=== PATIENT | male | born 1945 | race Caucasian/White ===

== ENCOUNTER 2018-08-28 08:10 | Inpatient (IN) ==
--- NOTE | 2018-08-28 08:22 | Emergency Department Note ---
Disposition Clinical Impression: NSTEMI (non-ST elevated myocardial infarction), CKD (chronic kidney disease) stage 3, GFR 30-59 ml/min Disposition: Admitted As Inpatient Condition: Fair General Adult HPI - General Stated complaint: CP Time Seen by Provider: 08/28/18 08:18 - Related Data Home Medications Medication Instructions Recorded Confirmed Aspirin [Adult Low Dose Aspirin EC] 81 mg PO DAILY 01/04/16 08/28/18 Metoprolol [Lopressor] 50 mg PO BID 01/04/16 08/28/18 [place]-3/Dha/Epa/Fish Oil [Fish Oil 1,000 mg PO DAILY 01/04/16 08/28/18 Dr 500 mg Softgel] Atorvastatin [Lipitor] 40 mg PO HS 04/01/16 08/28/18 Gemfibrozil [Lopid] 600 mg PO BIDWM 04/01/16 08/28/18 Metformin HCl [Glucophage] 1,000 mg PO DAILY 04/01/16 08/28/18 Fenofibrate Nanocrystallized 160 mg PO DAILY 08/28/18 08/28/18 [Triglide] Pantoprazole Sodium [Protonix] 40 mg PO DAILY 08/28/18 08/28/18 glipiZIDE [Glipizide] 10 mg PO BID 08/28/18 08/28/18 Previous Rx's Medication Instructions Recorded Isosorbide MONOnitrate (24 HR) 30 mg PO DAILY #30 tab.er.24h 01/08/16 [Imdur] Allergies Allergy/AdvReac Type Severity Reaction Status Date / Time No Known Allergies Allergy Verified 10/20/17 13:30 Past Medical History - Past Medical History Medical history: Reports: COPD, coronary artery disease, diabetes, hyperlipidemia, hypertension, myocardial infarction, TIA Surgical history: Reports: cancer surgery, coronary bypass (CABG) Psychiatric history: Reports: no psych history - Social History Smoking Status: Current every day smoker Smokeless Tobacco Status: No Alcohol use: Reports: none Drug use: Reports: none, other Course Vital Signs Temperature 98.5 F 08/28/18 08:21 Pulse Rate 103 08/28/18 08:21 Respiratory Rate 20 08/28/18 08:21 Blood Pressure 154/89 08/28/18 08:21 O2 Sat by Pulse Oximetry 94 08/28/18 08:21 Temperature 98.3 F 08/28/18 10:46 Pulse Rate 99 08/28/18 10:46 Respiratory Rate 15 08/28/18 10:46 Blood Pressure 161/104 08/28/18 10:46 O2 Sat by Pulse Oximetry 94 08/28/18 10:46 Oxygen Delivery Oxygen Delivery Room Air Medical Decision Making - Lab Data Result diagrams: 08/28/18 10:57 08/28/18 08:34 Lab Results 08/28/18 08/28/18 08/28/18 Range/Units 08:34 08:34 08:34 WBC 9.0 (4.3-11.1) K/mcL RBC 5.71 H (4.19-5.50) M/mcL Hgb 15.5 (12.9-16.9) g/dL Hct 48.4 (37.5-50.1) % MCV 84.8 (83.0-100.0) fL MCH 27.1 L (28.0-33.3) pg MCHC 32.0 (31.6-35.5) g/dL RDW 14.8 H (11.5-14.5) % Plt Count 200 (140-400) K/mcL MPV 10.1 (9.4-12.4) fL Immature Gran % 0.4 (0-4) % Seg Neutrophils % 75.8 % Lymphocytes % 16.6 % Monocytes % 5.7 % Eosinophils % 1.2 % Basophils % 0.3 % Neutrophils # 6.8 (1.6-8.9) K/mcL Lymphocytes # 1.5 (0.6-4.6) K/mcL Monocytes # 0.5 (0.0-1.3) K/mcL Eosinophils # 0.1 (0.0-0.6) K/mcL Basophils # 0.0 (0.0-0.2) K/mcL PT 10.8 (9.4-12.1) Seconds INR 1.0 Heparin Anti-Xa, Unfract 0.04 L (0.30-0.70) IU/mL Sodium 138 (136-145) mEq/L Potassium 4.2 (3.5-5.1) mEq/L Chloride 102 (98-107) mEq/L Carbon Dioxide 27 (23-29) mEq/L BUN 19 (8-23) mg/dL Creatinine 1.43 H (0.70-1.30) mg/dL Est GFR ( Amer) 59 L (> 60) Est GFR (Non-Af Amer) 49 L (> 60) BUN/Creatinine Ratio 13 (6-26) Glucose 270 H (70-105) mg/dL Calculated Osmolality 298 (280-300) Calcium 9.1 (8.6-10.3) mg/dL Troponin I 14.26 H* (< 0.04) ng/mL Stool Occult Bld Scrn (Negative) 08/28/18 08/28/18 08/28/18 Range/Units 09:28 10:57 10:57 WBC 10.3 (4.3-11.1) K/mcL RBC 6.04 H (4.19-5.50) M/mcL Hgb 16.4 (12.9-16.9) g/dL Hct 51.2 H (37.5-50.1) % MCV 84.8 (83.0-100.0) fL MCH 27.2 L (28.0-33.3) pg MCHC 32.0 (31.6-35.5) g/dL RDW 14.8 H (11.5-14.5) % Plt Count 218 (140-400) K/mcL MPV 9.7 (9.4-12.4) fL Immature Gran % (0-4) % Seg Neutrophils % % Lymphocytes % % Monocytes % % Eosinophils % % Basophils % % Neutrophils # (1.6-8.9) K/mcL Lymphocytes # (0.6-4.6) K/mcL Monocytes # (0.0-1.3) K/mcL Eosinophils # (0.0-0.6) K/mcL Basophils # (0.0-0.2) K/mcL PT 11.1 (9.4-12.1) Seconds INR 1.0 Heparin Anti-Xa, Unfract 0.04 L (0.30-0.70) IU/mL Sodium (136-145) mEq/L Potassium (3.5-5.1) mEq/L Chloride (98-107) mEq/L Carbon Dioxide (23-29) mEq/L BUN (8-23) mg/dL Creatinine (0.70-1.30) mg/dL Est GFR ( Amer) (> 60) Est GFR (Non-Af Amer) (> 60) BUN/Creatinine Ratio (6-26) Glucose (70-105) mg/dL Calculated Osmolality (280-300) Calcium (8.6-10.3) mg/dL Troponin I (< 0.04) ng/mL Stool Occult Bld Scrn Positive A (Negative) Critical Care Time Critical Care Time: Yes Total Critical Care Time: 35 Attestation: Critical care performed: Time is exclusive of separately billable procedures. Time includes: direct patient care, patient reassessment, coordination of patient care, interpretation of data (laboratory data, radiology data, and respiratory data), review of patient's medical records, medical consultation and documentation of patient care. Procedures included in critical care time: Procedures excluded from critical care time: Attestation Statement - Attestation Attestation: I examined this patient and my medical decision-making was reviewed with the Resident Physician. I agree with the documented findings, disposition and treatment plan as described except to the extent set forth below. Patient presents to the emergency department with a chief complaint of chest pain. Substernal pressure. Achy in his elbows. Numbness in the left arm. Patient states it feels similar to a by before he had bypass surgery several years ago. He has had no stents placed since then. He follows with Dr. Lesley Parada. Patient is pain-free at this time after 1 sublingual nitroglycerin glycerin administered by paramedics. He was also given aspirin. On examination he is awake alert sitting on the edge of the bed in no acute dist ress. Heart regular lungs clear. Plan. Patient pain-free. EKG shows a left bundle branch block which appears to be new. Cardiac workup and will discuss with cardiology. Patient will be admitted. Patient still pain-free. Troponin elevated. He does have a Hemoccult-positive stool so no heparin. Admitted to hospitalist. He has been discussed with cardiology.
--- NOTE | 2018-08-28 08:40 | Emergency Department Note ---
Disposition Clinical Impression: NSTEMI (non-ST elevated myocardial infarction), CKD (chronic kidney disease) stage 3, GFR 30-59 ml/min Disposition: Admitted As Inpatient Condition: Fair General Adult HPI - General Chief complaint: ED Chest Pain Stated complaint: CP Time Seen by Provider: 08/28/18 08:18 Source: patient, family, EMS Mode of arrival: EMS Limitations: no limitations Nursing Notes Reviewed: Yes Vital Signs Reviewed: Yes - History of Present Illness HPI Narrative: 72-year-old male with significant past medical history of coronary artery disease with a CABG in the late 90s, hypertension, hyperlipidemia and diabetes presenting to the emergency department chief complaint of chest pain. Patient states he has been having substernal chest pain on and off for the past week. Last evening he started having worsening substernal chest pain radiating down both of his arms with diaphoresis and nausea. 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 This morning pain was worse so he called EMS. When EMS arrived they provided him with a full dose aspirin and 1 nitroglycerin which completely resolved his chest pain. Patient denies any shortness of breath, fevers or abdominal pain. Pain Scale: 0 - Related Data Home Medications Medication Instructions Recorded Confirmed Aspirin [Adult Low Dose Aspirin EC] 81 mg PO DAILY 01/04/16 08/28/18 Metoprolol [Lopressor] 50 mg PO BID 01/04/16 08/28/18 [place]-3/Dha/Epa/Fish Oil [Fish Oil 1,000 mg PO DAILY 01/04/16 08/28/18 Dr 500 mg Softgel] Atorvastatin [Lipitor] 40 mg PO HS 04/01/16 08/28/18 Gemfibrozil [Lopid] 600 mg PO BIDWM 04/01/16 08/28/18 Metformin HCl [Glucophage] 1,000 mg PO DAILY 04/01/16 08/28/18 Fenofibrate Nanocrystallized 160 mg PO DAILY 08/28/18 08/28/18 [Triglide] Pantoprazole Sodium [Protonix] 40 mg PO DAILY 08/28/18 08/28/18 glipiZIDE [Glipizide] 10 mg PO BID 08/28/18 08/28/18 Previous Rx's Medication Instructions Recorded Isosorbide MONOnitrate (24 HR) 30 mg PO DAILY #30 tab.er.24h 01/08/16 [Imdur] Allergies Allergy/AdvReac Type Severity Reaction Status Date / Time No Known Allergies Allergy Verified 10/20/17 13:30 All systems ED: reviewed and negative except as stated. Constitutional: Denies: fever, chills Eyes: Reports: as per HPI ENT ED: Reports: as per HPI Cardiovascular: Reports: chest pain. Denies: palpitations, dyspnea on exertion Respiratory: Denies: cough, dyspnea, wheezes Gastrointestinal: Reports: nausea. Denies: abdominal pain, vomiting Genitourinary: Reports: as per HPI Musculoskeletal: Reports: as per HPI Integumentary: Reports: as per HPI Neurological: Denies: weakness, numbness, paresthesias Psychiatric: Reports: as per HPI Endocrine: Reports: as per HPI Hematological/Lymphatic: Reports: as per HPI Allergic/Immunologic: Reports: as per HPI Past Medical History - Past Medical History Attestation: Yes The following information was validated with the patient. Medical history: Reports: COPD, coronary artery disease, diabetes, hyperlipidemia, hypertension, myocardial infarction, TIA Surgical history: Reports: cancer surgery, coronary bypass (CABG) Psychiatric history: Reports: no psych history - Social History Smoking Status: Current every day smoker Smokeless Tobacco Status: No Alcohol use: Reports: none Drug use: Reports: none, other Physical Exam - General Limitations: no limitations General appearance: alert, in no apparent distress - Head Head exam: atraumatic, normocephalic, normal inspection - Eye Eye exam: Present: normal appearance. Absent: scleral icterus, conjunctival injection - ENT ENT exam: normal exam, mucous membranes moist - Neck Neck exam: Present: normal inspection, full ROM. Absent: tenderness, meningismus - Chest Chest inspection: Present: normal inspection, symmetric chest wall rise. Absent: tenderness, rash - Respiratory Respiratory exam: Present: normal lung sounds bilaterally. Absent: respiratory distress, wheezes - Cardiovascular Cardiovascular exam: Present: normal rhythm, tachycardia, normal heart sounds - Abdominal Exam Abdominal exam: Present: soft, Non-Tender. Absent: distention, guarding, rebound - Extremities Exam Extremities exam: Present: normal inspection, full ROM - Neurological Exam Neurological exam: Present: alert, oriented X3 - Psychiatric Psychiatric exam: Present: normal affect, normal mood - Skin Skin exam: Present: warm, intact Course Course Narrative: 72-year-old male presenting for substernal chest pain. Concerning history along with concerning past medical history. At this time patient chest pain-free. Mildly tachycardic but otherwise hemodynamically stable. Alert and oriented 3. At this time will obtain a chest pain workup including troponin, EKG. Disposition most likely admission pending results. Patient agrees with this plan. - Reevaluation(s) Reevaluation #1: Patient's laboratory analysis shows elevated troponin at 14.26. Otherwise unchanged from baseline. Patient states he has had rectal bleeding in the past. Nothing in the past month. Due to us wanting to start heparin therapy stool occult was completed which was positive. I spoke with Dr. sOhea the buffing wheel former automatic business unit controller who agrees to hold off heparin at this time. He states no further intervention at this time as needed in the emergency department because the patient is chest pain-free. I spoke with the hospitalist business unit controller Dr. Beck who agrees to accept the patient at this time. Patient remains alert and oriented 3 in the room with stable vital signs. Patient agrees with this plan. Vital Signs Temperature 98.5 F 08/28/18 08:21 Pulse Rate 103 08/28/18 08:21 Respiratory Rate 20 08/28/18 08:21 Blood Pressure 154/89 08/28/18 08:21 O2 Sat by Pulse Oximetry 94 08/28/18 08:21 Temperature 98.5 F 08/28/18 08:21 Pulse Rate 103 08/28/18 08:21 Respiratory Rate 20 08/28/18 08:21 Blood Pressure 154/89 08/28/18 08:21 O2 Sat by Pulse Oximetry 94 08/28/18 08:21 Oxygen Delivery Oxygen Delivery Room Air Medical Decision Making - Lab Data Result diagrams: 08/28/18 10:57 08/28/18 08:34 Lab Results 08/28/18 08/28/18 08/28/18 Range/Units 08:34 08:34 08:34 WBC 9.0 (4.3-11.1) K/mcL RBC 5.71 H (4.19-5.50) M/mcL Hgb 15.5 (12.9-16.9) g/dL Hct 48.4 (37.5-50.1) % MCV 84.8 (83.0-100.0) fL MCH 27.1 L (28.0-33.3) pg MCHC 32.0 (31.6-35.5) g/dL RDW 14.8 H (11.5-14.5) % Plt Count 200 (140-400) K/mcL MPV 10.1 (9.4-12.4) fL Immature Gran % 0.4 (0-4) % Seg Neutrophils % 75.8 % Lymphocytes % 16.6 % Monocytes % 5.7 % Eosinophils % 1.2 % Basophils % 0.3 % Neutrophils # 6.8 (1.6-8.9) K/mcL Lymphocytes # 1.5 (0.6-4.6) K/mcL Monocytes # 0.5 (0.0-1.3) K/mcL Eosinophils # 0.1 (0.0-0.6) K/mcL Basophils # 0.0 (0.0-0.2) K/mcL PT 10.8 (9.4-12.1) Seconds INR 1.0 Heparin Anti-Xa, Unfract 0.04 L (0.30-0.70) IU/mL Sodium 138 (136-145) mEq/L Potassium 4.2 (3.5-5.1) mEq/L Chloride 102 (98-107) mEq/L Carbon Dioxide 27 (23-29) mEq/L BUN 19 (8-23) mg/dL Creatinine 1.43 H (0.70-1.30) mg/dL Est GFR ( Amer) 59 L (> 60) Est GFR (Non-Af Amer) 49 L (> 60) BUN/Creatinine Ratio 13 (6-26) Glucose 270 H (70-105) mg/dL Calculated Osmolality 298 (280-300) Calcium 9.1 (8.6-10.3) mg/dL Troponin I 14.26 H* (< 0.04) ng/mL Stool Occult Bld Scrn (Negative) 08/28/18 Range/Units 09:28 WBC (4.3-11.1) K/mcL RBC (4.19-5.50) M/mcL Hgb (12.9-16.9) g/dL Hct (37.5-50.1) % MCV (83.0-100.0) fL MCH (28.0-33.3) pg MCHC (31.6-35.5) g/dL RDW (11.5-14.5) % Plt Count (140-400) K/mcL MPV (9.4-12.4) fL Immature Gran % (0-4) % Seg Neutrophils % % Lymphocytes % % Monocytes % % Eosinophils % % Basophils % % Neutrophils # (1.6-8.9) K/mcL Lymphocytes # (0.6-4.6) K/mcL Monocytes # (0.0-1.3) K/mcL Eosinophils # (0.0-0.6) K/mcL Basophils # (0.0-0.2) K/mcL PT (9.4-12.1) Seconds INR Heparin Anti-Xa, Unfract (0.30-0.70) IU/mL Sodium (136-145) mEq/L Potassium (3.5-5.1) mEq/L Chloride (98-107) mEq/L Carbon Dioxide (23-29) mEq/L BUN (8-23) mg/dL Creatinine (0.70-1.30) mg/dL Est GFR ( Amer) (> 60) Est GFR (Non-Af Amer) (> 60) BUN/Creatinine Ratio (6-26) Glucose (70-105) mg/dL Calculated Osmolality (280-300) Calcium (8.6-10.3) mg/dL Troponin I (< 0.04) ng/mL Stool Occult Bld Scrn Positive A (Negative) - EKG Data EKG #1 EKG attestation: Yes I reviewed and interpreted this EKG. EKG results narrative: Sinus tachycardia. Left bundle branch block. 103 bpm. MN interval 163, QRS 172, QTC 494. No sign of acute ST segment elevation or ischemia. Compared to previous EKG completed on 10/14/2016 new Left bundle branch block.
[2018-08-28 08:46] LABS: Basophils % 0.3 %; Eosinophils # 0.1 K/mcL (0.0-0.6); Eosinophils % 1.2 %; Hematocrit 48.4 % (37.5-50.1); Hemoglobin 15.5 g/dL (12.9-16.9); Immature Granulocytes % 0.4 % (0-4); Lymphocytes # 1.5 K/mcL (0.6-4.6); Lymphocytes % 16.6 %; Mean Corpuscular Hemoglobin 27.1 pg (28.0-33.3); Mean Corpuscular Volume 84.8 fL (83.0-100.0); Mean Platelet Volume 10.1 fL (9.4-12.4); Monocytes # 0.5 K/mcL (0.0-1.3); Monocytes % 5.7 %; Neutrophils # 6.8 K/mcL (1.6-8.9); Platelet Count 200 K/mcL (140-400); Red Blood Count 5.71 M/mcL (4.19-5.50); Red Cell Distribution Width 14.8 % (11.5-14.5); Segmented Neutrophils % 75.8 %
[2018-08-28 09:08] LABS: Calcium 9.1 mg/dL (8.6-10.3); Potassium 4.2 mEq/L (3.5-5.1)
[2018-08-28 09:11] LABS: Troponin I 14.26 ng/mL (< 0.04)
[2018-08-28] MEDS ORDERED: *HR* Heparin 5,000 UNIT/ML VIAL IVP ONE ×2 (09:13→10:48)
[2018-08-28] MEDS ORDERED: *HR* Heparin 5,000 UNIT/ML VIAL IVP PRN ×3 (09:13→10:48)
[2018-08-28] MEDS ORDERED: Heparin 25,000 UNIT/500 ML D5W 25,000 UNIT/500 ML BAG IVC SCH (09:15)
[2018-08-28 09:34] LABS: Heparin anti-factor XA UFH 0.04 IU/mL (0.30-0.70)
[2018-08-28 09:35] LABS: Prothrombin Time 10.8 Seconds (9.4-12.1)
[2018-08-28 11:20] LABS: Hematocrit 51.2 % (37.5-50.1); Hemoglobin 16.4 g/dL (12.9-16.9); Mean Corpuscular Hemoglobin 27.2 pg (28.0-33.3); Mean Corpuscular Volume 84.8 fL (83.0-100.0); Mean Platelet Volume 9.7 fL (9.4-12.4); Platelet Count 218 K/mcL (140-400); Red Blood Count 6.04 M/mcL (4.19-5.50); Red Cell Distribution Width 14.8 % (11.5-14.5)
[2018-08-28 11:26] LABS: Heparin anti-factor XA UFH 0.04 IU/mL (0.30-0.70)
[2018-08-28 11:27] LABS: Prothrombin Time 11.1 Seconds (9.4-12.1)
[2018-08-28] MEDS: Heparin 25,000 UNIT/500 ML D5W 25,000 UNIT/500 ML BAG IVC SCH ×2 (11:48→20:42)
--- NOTE | 2018-08-28 12:09 | Cardiology Consult Note ---
Addendum entered and electronically signed by Michael Oshea MD 08/28/18 21:17: I examined this patient and my medical decision-making was reviewed with the Resident Physician. I agree with the documented findings, disposition and treatment plan as described except to the extent set forth below. A/P: NSTEMI with rising troponin CAD sp CABG 1995 Normal hemoglobin w hemoccult + stool and negative GI workup 10/2017 Start heparin drip, TTE and LHC. A/R/B of [facility] dw with him and he is agreeable with proceeding. Thanks for the consult, Michael Oshea MD [facility] Original Note: Date of Encounter: 08/28/18 Time of Encounter: 11:37 Assessment and Plan (1) NSTEMI (non-ST elevated myocardial infarction) Current Visit: Yes Status: Acute Would like to do cardiac cath, however patient has history of GI bleed in Dec with negative colonoscopy. Ordered heparin challenge to look for any potential GI bleeds before cath. Discussion w patient/family: The assessment and plan as outlined above was discussed with the patient and/or family members who expressed understanding and agreement. All questions were answered. Thank you for involving us in the care of your patient. Please call with any questions. History of Present Illness Consult date: 08/28/18 Requesting physician: Michael Oshea Chief complaint: Chest Pain History of present illness: Mr. Cervantes is a 72 year old male who is consulted for chest pain. Pain started 3 days ago, is intermittent, substernal, radiating up neck, radiating down both arms, worse with exertion, worsening since onset. Patient called EMS this morning, was given ASA, and nitro which relieved his symptoms. He states he has dipahoresis. He currently does not have any CP. Does not have SOB, fever, abdominal pain. He had a CABG in 1995, last Cath in 2002 at [facility]. Patient of Lesley Parada. History for HTN, hyperlipidemia, DM. Troponins today are 14.26. Patient had bloody stools last Deceme and had a colonoscopy in with Dr. Jones which was normal. Past Med Surg Social Fam HX - Past Medical History Medical history: COPD, coronary artery disease, diabetes, hyperlipidemia, hypertension, myocardial infarction, TIA Additional medical history: [place] 1988 Psychiatric history: no psych history - Past Surgical History Surgical History: cancer surgery, coronary bypass (CABG) Additional surgical history: heart surgery 1995 - Social History Smoking Status: Current every day smoker Smokeless Tobacco Status: No Alcohol use: none Drug use: none, other - Family History Father Living Status: Hx Family Cardiac Disorders: Yes Maternal Living Status: Hx Family Cardiac Disorders: Yes ( of a heart attack) Hx Family Endocrine Disorder: Yes Medications and Allergies RX: Aspirin [Adult Low Dose Aspirin EC] 81 mg PO DAILY 01/04/16 [History] RX: Metoprolol [Lopressor] 50 mg PO BID 01/04/16 [History] RX: [place]-3/Dha/Epa/Fish Oil [Fish Oil Dr 500 mg Softgel] 1,000 mg PO DAILY 01/04/16 [History] Isosorbide MONOnitrate (24 HR) [Imdur] 30 mg PO DAILY #30 tab.er.24h 01/08/16 [Rx] Atorvastatin [Lipitor] 40 mg PO HS 04/01/16 [History] Gemfibrozil [Lopid] 600 mg PO BIDWM 04/01/16 [History] Metformin HCl [Glucophage] 1,000 mg PO DAILY 04/01/16 [History] Fenofibrate Nanocrystallized [Triglide] 160 mg PO DAILY 08/28/18 [History] Pantoprazole Sodium [Protonix] 40 mg PO DAILY 08/28/18 [History] glipiZIDE [Glipizide] 10 mg PO BID 08/28/18 [History] Allergy/AdvReac Type Severity Reaction Status Date / Time No Known Allergies Allergy Verified 10/20/17 13:30 All Systems Review: The remainder of the systems were reviewed and are negative - Constitutional Constitutional: night sweats, no fever(s) - Cardiovascular Cardiovascular: as per HPI - Respiratory Respiratory: no cough, no dyspnea, no wheezing - Gastrointestinal Gastrointestinal: no abdominal pain Physical Examination Vital Signs, Last 4 Hours Temp Pulse Resp BP Pulse Ox 08/28/18 10:46 98.3 F 99 15 161/104 94 08/28/18 10:05 18 157/98 08/28/18 08:21 98.5 F 103 20 154/89 94 General: Conversant HEENT: Atraumatic Neck: No JVD Cardiac: Reg Rate and Rhythm, Normal S1 and S2 Lungs: Normal Breath Sounds Neuro: Alert and responsive, No focal deficits noted Abdomen: Soft, Non-Tender Skin: No rashes noted on visualized skin Musculoskeletal: No Chest Wall Tenderness Extremities: No Cyanosis, Normal Pulses Results 08/28/18 10:57 08/28/18 08:34 Lab Results 08/28/18 08/28/18 08/28/18 08:34 08:34 08:34 WBC 9.0 Hgb 15.5 Hct 48.4 Plt Count 200 INR 1.0 Sodium 138 Potassium 4.2 Chloride 102 Carbon Dioxide 27 BUN 19 Creatinine 1.43 H Glucose 270 H Calcium 9.1 Troponin I 14.26 H* 08/28/18 08/28/18 10:57 10:57 WBC 10.3 Hgb 16.4 Hct 51.2 H Plt Count 218 INR 1.0 Sodium Potassium Chloride Carbon Dioxide BUN Creatinine Glucose Calcium Troponin I - Imaging and Cardiology Chest Xray: report reviewed - EKG Interpretation EKG results cardiology: personally reviewed, left bundle branch block (Seen on old EKG) Consult Discharge Plan - Plan Referrals: Bill Penn DO [Primary Care Provider] -
[2018-08-28] MEDS ORDERED: *HR* HYDROcodone/Acet 5/325 mg TABLET PO PRN (13:23)
[2018-08-28] MEDS ORDERED: Naloxone 0.4 MG/ML INJ IVP PRN (13:23)
[2018-08-28] MEDS ORDERED: Acetaminophen 325 MG TABLET PO PRN (13:23)
[2018-08-28] MEDS ORDERED: *HR* Dextrose 50 % in Water (Syg) 50 ML SYRINGE IVP PRN (13:44)
[2018-08-28] MEDS ORDERED: Dextrose Gel 15 GM/37.5 ML TUBE PO PRN ×2 (13:44)
[2018-08-28] MEDS ORDERED: D5% in Water 1,000 ML IVC PRN (13:44)
[2018-08-28] MEDS ORDERED: Ondansetron 4 MG/2 ML VIAL IVP PRN (14:01)
[2018-08-28] MEDS ORDERED: ISOVUE-370 200 ML INFUS..BTL ONE (14:38)
[2018-08-28] MEDS ORDERED: *HR* Heparin 10,000 UNIT/10 ML VIAL ONE (14:38)
[2018-08-28] MEDS ORDERED: 0.9 % Sodium Chloride 1,000 ML ONE ×2 (14:38→14:43)
[2018-08-28] MEDS ORDERED: Heparin 1,000 UNITS/500 mL 500 ML ONE (14:38)
[2018-08-28] MEDS ORDERED: Nitroglycerin 1,000 MCG/10 ML VIAL IV ONE (14:38)
[2018-08-28] MEDS ORDERED: *HR* Midazolam HCl 2 MG/2 ML VIAL ONE (15:08)
[2018-08-28] MEDS ORDERED: *HR* FentaNYL (PF) 100 MCG/2 ML VIAL ONE (15:08)
[2018-08-28] MEDS ORDERED: Tirofiban 12.5 MG/250ML 12.5 MG/250 ML BAG ONE (15:34)
--- NOTE | 2018-08-28 16:10 | Electrocardiograph Report ---
[facility] Test Date: 2018-08-28 Pat Name: Jesús Cervantes Department: EXAM1 Room: 3B23 Gender: M Black [employer] Worker: : 1945 Requested By: Mayra Mcgee Order Number: [id number] Reading MD: David Lott Measurements Intervals [place]bs Rate: 103 P: 79 W[place]: 169 QRS: 68 QRSD: 172 T: 224 QT: 377 QTc: 494 Interpretive Statements Sinus tachycardia Probable left atrial enlargement Left bundle branch block Electronically Signed On 08-28-2018 16:08:52 EDT by David Lott
--- NOTE | 2018-08-28 16:18 | Invasive Diagnostic Lab Proc ---
Name: Jesús Cervantes Date of Study: 08/28/2018 Date: 1945 Ht: 68.9in Medical Record#: [id number] Age: 72 Wt: 187.39lb Gender: Male BSA: 2.01 Order #: [id number] BMI: 27.76 Physicians Procedure Physician: Musa Chou MD Referring MD: Referring MD: Staff Name Position Time In Baljit Shearer RN Strapper And Buffer 02:48 PM Maura Montez RT (R) Scrub 02:49 PM Sharmila Siu RN Monitor 02:49 PM Indications Indication Non-Stemi Procedures Performed Procedure L HRT ART/GRFT ANGIO Pre-Procedure Checklist Informed consent is complete signed and on chart. H&P is on chart. ID band is on and ID verified with patient. Patient NPO for procedure The procedure was described for the patient and questions were answered. ECG is on chart. Plan of Care Patient will tolerate the procedure without complications. Adequate level of comfort will be maintained. Hemodynamics will remain stable Patient will recover from procedure without complications. Respiratory function will be maintained. Cardiac rhythm will remain stable. Patient temperature will be maintained. Patient and/or family have verbalized understanding of the procedure. Patient Education Chief Complaint/Reason for Test: Cardiac Cath Developmental Category: Adult (18-64 years) Developmentally Appropriate for Age: Yes Learning Barriers: None Education Needs: Procedure Education Method: Verbal Information Taught: Cardiac Cath Educational Evaluation: Able to repeat information Intravenous Access Time IV Size Location DC'd Fluid/Drip Rate Units RN 20g 1 /" Patent On Arrival 0.9NaCl 25 ml/hr Baljit Shearer RN Allergies No Known Allergies Vital Signs Time BP (mmHg) HR (bpm) O2 Sat. RR (bpm) LOC 03:12 PM / % 5 = Fully awake and oriented or at pre-proc level 03:12 PM / % 4 = Oriented but drowsy 03:11 PM 149 / 100 110 94 % 19 03:16 PM 138 / 91 110 90 % 18 03:21 PM 147 / 99 109 91 % 16 03:26 PM 125 / 84 108 91 % 21 03:31 PM 136 / 92 112 91 % 21 03:36 PM 129 / 92 115 92 % 17 03:41 PM 138 / 101 117 91 % 18 03:46 PM 135 / 95 113 90 % 18 Procedural Medications Time Medication Dose Units Method Given By 03:12 PM Oxygen 2 L/min nasal cannula Baljit Shearer RN 03:12 PM Versed 1 mg Intravenous Blajit Shearer RN 03:12 PM Fentanyl 50 mcg Intravenous Baljit Shearer RN 03:23 PM Lidocaine 2% 10 ml Subcutaneous Musa Chou MD 03:33 PM Aggrastat Bolus: 42 ml Intravenous Baljit Shearer RN 03:34 PM Aggrastat 12.5mg/250ml 7.5 ml Intravenous Baljit Shearer RN ASA Classification: CLASS III- Severe systemic disease (i.e. prior AMI, diabetes with vascular complications, morbid obesity) Rosa Maria Score Preprocedure Postprocedure Activity 2- Moves 4 extremities sustained head lift Activity 2- Moves 4 extremities sustained head lift Circulation 2- SBP +/= 20 points of pre-anesthetic level Circulation 2- SBP +/= 20 points of pre-anesthetic level Consciousness 2- Awake and alert oriented x 3 Consciousness 2- Awake and alert oriented x 3 O2 Saturation 2- Able to maintain O2 satruation of 92% on room air O2 Saturation 2- Able to maintain O2 satruation of 92% on room air Respiratory 2- Able to deep breathe and cough well Respiratory 2- Able to deep breathe and cough well Total Score 10 Total Score 10 Contrast Agent: Isovue Diagnostic Contrast: 75 ml Total Contrast: 75 ml Fluoro Dose: 5889 mGy Procedure Log Time Note Enter By 02:31 PM CathStat 02:49 PM Baljit Shearer RN Position: Strapper And Buffer Time in: 14:48 tsites 02:49 PM Maura Montez RT (R) Position: Scrub Time in: 14:49 tsites 02:49 PM Sharmila Siu RN Position: Monitor Time in: 14:49 tsites 02:57 PM Pt arrived to systems testing laboratory technician 2 at 14:57 tsites 02:57 PM Patient charges- Angio tray pack, Navilyst 3mm J, Pulse Oximetry and ACIST tubing and transducer tsites 03:00 PM Physician arrived 15:00 tsites 03:00 PM Meet and greet completed tsites 03:00 PM Sign in performed according to hospital policy. Informed consent was obtained. tsites 03:10 PM Time: 15:10 Patient comfortable and pain free: Yes tsites 03:10 PM Time: 15:10LOC: 5 = Fully awake and oriented or at pre-proc level tsites 03:10 PM Vitals capture started with the following parameters, Patient=Adult, Interval=5 min, Initial Dxwrzihl=790 mmHg, Deflation Rate=5 mmHg, Cuff placed on Right Arm 03:11 PM LM=649 bpm, GMYZ=372/100 mmhg, SpO2=94.0 %, Resp=19 B/min 03:11 PM Hair removed from procedure site in procedure lab using clippers. Bilateral groin prepped with Chloraprep by Maura Montez (R), then patient was draped. Skin intact. tsites 03:11 PM Procedure start 15:11 tsites 03:12 PM Time: 15:12 Oxygen on at 2 L/min per nasal cannula by Baljit Shearer RN tsites 03:12 PM Time: 15:12 Versed 1 mg Intravenous Given by Baljit Shearer RN tsites 03:12 PM Time: 15:12 Fentanyl 50 mcg Intravenous Given by Baljit Shearer RN tsites 03:13 PM Recorded ECG: GM=603 Condition=Condition 1 03:16 PM TQ=850 bpm, SYIM=621/91 mmhg, SpO2=90.0 %, Resp=18 B/min 03:18 PM Pressure channel 1 zeroed. 03:21 PM TF=785 bpm, IINL=060/99 mmhg, SpO2=91.0 %, Resp=16 B/min 03:22 PM Time out was performed according to hospital policy. Conscious sedation and anesthesia was achieved (see medication log with in this report above) kmavis 03:23 PM Time: 15:23 10 ml Lidocaine 2% to right groin Subcutaneous Given by Musa Chou MD kmavis 03:24 PM Micro-Introducer Kit utilized for sheath placement kmavis 03:24 PM Access obtained by percutaneous puncture. 6Fr 10cm Terumo [place] sheath placed in right Femoral artery. [id number] kmavis 03:25 PM 5Fr FL 4 catheter inserted over the wire [facility] kmavis 03:25 PM LCA angiography performed in multiple views. kmavis 03:25 PM Recorded Pressure: Ao, SS=218, Condition=Condition 1 (Aorta) Ao 114/84/98 03:26 PM Catheter removed kmavis 03:26 PM YJ=411 bpm, MPVE=746/84 mmhg, SpO2=91.0 %, Resp=21 B/min 03:26 PM 5Fr FR 4 catheter inserted over the wire DNC kmavis 03:26 PM RCA angiography performed in multiple views. kmavis 03:27 PM Recorded Pressure: LV, IU=457, Condition=Condition 1 (Left Ventricle) LV 133/22/22 03:27 PM Recorded Pressure: LV, Ao, VY=953, Condition=Condition 1 (Left Ventricle) LV 143/25/33, (Aorta) Ao 140/44/90 03:28 PM Time: 15:12LOC: 4 = Oriented but drowsy kmavis 03:28 PM Time: 15:12 Patient comfortable and pain free: Yes kmavis 03:28 PM Catheter crossed the aortic valve and was selectively placed in the left ventricle. Pressures recorded on pullback for left heart catheterization. kmavis 03:29 PM SVG to the RPDA angio performed in multiple views. kmavis 03:30 PM Catheter removed kmavis 03:31 PM QJ=953 bpm, QZPT=231/92 mmhg, SpO2=91.0 %, Resp=21 B/min 03:32 PM 0.035 260cm Navilyst 3mmJ wire [id number] kmavis 03:32 PM 5Fr IM catheter inserted over the wire [id number] kmavis 03:33 PM Left BARBARA to the LAD angio performed in multiple views. kmavis 03:34 PM Time: 15:33 Aggrastat Bolus: 42 ml Intravenous Given by Baljit Shearer RN Hammer pump kmavis 03:34 PM Time: 15:34 Aggrastat 12.5mg/250ml 7.5 ml Intravenous Given by Baljit Shearer RN Hammer pump kmavis 03:36 PM TV=587 bpm, FXRH=084/92 mmhg, SpO2=92.0 %, Resp=17 B/min 03:37 PM Aggrastat stopped at this time. kmavis 03:38 PM Catheter removed kmavis 03:38 PM 5Fr Pigtail catheter inserted over the wire DN kmavis 03:40 PM Right iliac and Left iliac angiography performed in multiple views kmavis 03:41 PM UR=670 bpm, EMGU=236/101 mmhg, SpO2=91.0 %, Resp=18 B/min 03:41 PM Catheter removed kmavis 03:42 PM Procedure completed at 15:42 08/28/2018 kmavis 03:46 PM BM=100 bpm, RPPG=461/95 mmhg, SpO2=90.0 %, Resp=18 B/min 03:46 PM Sign out completed: Radiation Dose 488 mGy, 5889 cGy/cm2 Fluoro Time: 5.0 Isovue 370 - 200ml contrast 75 ml given by Musa Chou MD. Complications: None. 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 Cardiac Rehab Consult needed: YesConfirmed administered medications: Yes kmavis 03:46 PM Isovue 370 - 200ml,1 Bottle(s) used. kmavis 03:47 PM Arterial sheath pulled, Mynx closure device used and was Successful [id number] S/N. kmavis 03:47 PM Estimated Blood Loss: minimal kmavis 03:47 PM Post Blood Pressure 135/95 kmavis 03:47 PM Information taught Cardiac Cath kmavis 03:47 PM Education needs Procedure, Plan of Care, Disease Process, and Obtaining further treatment kmavis 03:47 PM Learning barriers :None kmavis 03:47 PM Education Methods Verbal kmavis 03:47 PM Education evaluation Able to repeat information kmavis 03:47 PM Site status No bleeding/hematoma - Rt Groin as reported by Sites, Maura RT (R) at 15:47 kmavis 03:47 PM Opsite applied kmavis 03:48 PM Plavix, Effient or Brilinta given No kmavis 03:48 PM Delay to floor No kmavis 03:48 PM Family placed in consult room. kmavis 03:48 PM Complications: None kmavis 03:48 PM Patient out of room: 15:48 kmavis 03:57 PM Coronary Dominance: right kmavis 03:57 PM Lesion found in Proximal RCA. Pre Stenosis: 100 Pre MAEGAN Flow: kmavis 03:58 PM Lesion found in Distal LMCA. Pre Stenosis: 80 Pre MAEGAN Flow: kmavis 03:58 PM Lesion found in Proximal LAD. Pre Stenosis: 25 Pre MAEGAN Flow: kmavis 03:58 PM Lesion found in Mid LAD. Pre Stenosis: 70 Pre MAEGAN Flow: kmavis 03:58 PM Lesion found in Proximal Circumflex. Pre Stenosis: 100 Pre MAEGAN Flow: kmavis 04:00 PM Right Coronary, Right Posterior Descending Arteries with Right Posterolateral and Acute Marginal branches with 100 % stenosis. If graft is supplying this area, 95 % stenosis kmavis 04:00 PM Left Main Coronary Artery with 80% stenosis kmavis 04:00 PM Proximal Left Anterior Descending Coronary Artery with 25% stenosis. If graft is supplying this territory, 0 % stenosis. kmavis 04:00 PM Mid/Distal Left Anterior Descending Coronary Artery and diagonal branches with 70% stenosis. If graft is supplying this area, 0 % stenosis kmavis 04:00 PM Circumflex, Obtuse Marginal, Left Posterior Descending, and Left Posterolateral Coronary Arteries with 100 % stenosis. If graft is supplying this area, 100 % stenosis kmavis 04:03 PM Report given to Monserrat SIDDIQUI Pt taken to 3B Room #. 16:03 kmavis Complications Complication None None Hemodynamics Pressures Site Systolic/A Wave Diastolic/V Wave Mean AO 114 84 98 LV 133 22 22 LV 143 25 33 AO 140 44 90 Post Procedure Information Blood Pressure: 135/95 mmHg Post procedural instructions were given Closure Device Time Device Success/Fail 08/28/2018 3:48:00 PM MynxGrip Successful Site Checks Time Location Status Staff Sheath In? Note 03:47 PM Rt Groin No bleeding/hematoma Sites, Maura RT (R) Pulses Time Site Pre-Procedure Post-Procedure Note Bilateral DP & PT 2+ Updated by Maura Montez RT (R) on 08/28/2018 4:13:17 PM Maura Montez RT electronically signed on 08/28/2018 4:13:57 PM with status of Final
[2018-08-28] MEDS ORDERED: Perflutren Lipid Microsphere 1.3 ML in 0.9 % Sodium Chloride 8.7 ML IVP ONE (17:24)
[2018-08-28] MEDS: Insulin LISPRO 300 UNITS/3 ML VIAL SQ SCH ×2 (17:30→20:53)
[2018-08-28] MEDS ORDERED: Insulin LISPRO 300 UNITS/3 ML VIAL SQ SCH (18:00)
--- NOTE | 2018-08-28 19:21 | Internal Med History&Physical ---
<[employer] - Last Filed: 08/28/18 14:44> Date of Encounter: 08/28/18 Time of Encounter: 12:45 Internal Medicine - H&P: HPI Chief complaint: CP Admitted From: Emergency Dept Plans for Post Hospital Care: Home History of present illness: Mr. Cervantes is a 72 year old male w/PMH of CAD with previous TX in , CAD with CABG (double bypass in 1995), CVA in 1981 without residual effects, HLD, HTN, diabetes controlled w/oral anti-hyperglycemia medications, and GERD presents from the ED w/CC of CP that began approx. 1 week ago and was intermittent in nature. Pt. reports pain became worse over the past several days and more constant. Pt. reports pain as centralized in chest as pressure w/numbness and tingling in bilateral elbows. States pain was worse w/exertion but no alleviating factors. Associated sx: diaphoresis. Pt. had hx of bloody stools and reports colonoscopy in February w/Dr. Jones which was unremarkable and negative for polyps. States he has occasional small streaks of bright blood on toilet paper after wiping but denies annamaria blood. Given ASA and nitro by EMS which pt. states resolved his CP. Initial troponin 14.26. Patient denies recent illness, fever, chills, nausea, vomiting, headache, changes in vision, SOB, dyspnea, home O2 use, unusual bleeding, abdominal pain, diarrhea, constipation, dizziness, lightheadedness, pre-syncope, or syncope. Past Med Surg Social Fam HX - Past Medical History Source: patient, old records reviewed, obtained from family Medical history: cancer (Skin), coronary artery disease, diabetes, GERD, GI bleed (Previously in October in 2016), hyperlipidemia, hypertension, myocardial infarction ( w/o stent placement), TIA Additional medical history: [place] 1988 Psychiatric history: no psych history - Past Surgical History Surgical History: cancer surgery (Skin), coronary bypass (CABG) (Double in 1995) Additional surgical history: heart surgery 1995 - Social History Smoking Status: Former smoker Packs per day: 1 PPD - Reports quitting in 1995 Smokeless Tobacco Status: No Alcohol use: none Drug use: none, other Current living situation: Home, With Family Activity Level: Independent ambulation Recent Out of Country Travel Within the Last 8 Weeks: No Exposure or Possible Exposure to Illness During Travel: No - Family History Brother Race: Family Member Ethnicity: Non- Living Status: Age at : 52 Cause of : Lung cancer Hx Family Cancer: Yes (Lung, Squamous cell carcinoma) Father Race: Family Member Ethnicity: Non- Living Status: Age at : 71 Cause of : CVA Hx Family Cardiac Disorders: Yes (CVA, HTN) Hx Family Neurologic Disorders: No (CVA) Maternal Race: Family Member Ethnicity: Non- Living Status: Age at : 68 Cause of : TX, CAD Hx Family Cardiac Disorders: Yes (TX) Hx Family Endocrine Disorder: Yes (DM) Internal Medicine - H&P: Meds RX: Aspirin [Adult Low Dose Aspirin EC] 81 mg PO DAILY 01/04/16 [History] RX: Metoprolol [Lopressor] 50 mg PO BID 01/04/16 [History] RX: [place]-3/Dha/Epa/Fish Oil [Fish Oil Dr 500 mg Softgel] 1,000 mg PO DAILY 01/04/16 [History] Isosorbide MONOnitrate (24 HR) [Imdur] 30 mg PO DAILY #30 tab.er.24h 01/08/16 [Rx] Atorvastatin [Lipitor] 40 mg PO HS 04/01/16 [History] Gemfibrozil [Lopid] 600 mg PO BIDWM 04/01/16 [History] Metformin HCl [Glucophage] 1,000 mg PO DAILY 04/01/16 [History] Fenofibrate Nanocrystallized [Triglide] 160 mg PO DAILY 08/28/18 [History] Pantoprazole Sodium [Protonix] 40 mg PO DAILY 08/28/18 [History] glipiZIDE [Glipizide] 10 mg PO BID 08/28/18 [History] Allergy/AdvReac Type Severity Reaction Status Date / Time No Known Allergies Allergy Verified 10/20/17 13:30 All Systems PM: A 10-system review of systems was performed and is negative for pertinent findings except as documented above in the HPI. - Constitutional Constitutional: no chills, no fever(s), no night sweats - EENT Eyes: no change in vision, no discharge, no pain, no photophobia Ears: no ear discharge, no ear pain, no tinnitus Nose, mouth and throat: no dysphagia, no nasal discharge, no neck pain, no sore throat - Breasts Breasts: as per HPI - Cardiovascular Cardiovascular ROS IM: as per HPI, chest pain, no diaphoresis, no dyspnea, no lightheadedness, no palpitations, no syncope - Respiratory Respiratory: no cough, no dyspnea, no wheezing, no excessive phlegm production - Gastrointestinal Gastrointestinal: no abdominal pain, no diarrhea, no hematemesis, no hematochezia, no melena, no nausea, no vomiting - Genitourinary Genitourinary ROS male: as per HPI - Musculoskeletal Musculoskeletal ROS IM: no numbness, no tingling - Integumentary Integumentary IM: no rash, no unusual bruising - Neurological Neurological ROS: no confusion, no convulsions, no focal weakness, no numbness, no tingling, no tremor(s) - Psychiatric Psychiatric: as per HPI - Endocrine Endocrine IM: as per HPI - Hematologic/Lymphatic Hematologic/Lymphatic: no easy bruising - Allergic/Immunologic Allergic/Immunologic: as per HPI - Constitutional Vitals: Temp Pulse Resp BP Pulse Ox 98.3 F 99 15 161/104 94 08/28/18 10:46 08/28/18 10:46 08/28/18 10:46 08/28/18 10:46 08/28/18 10:46 General appearance: Present: cooperative, A&O X 3, pleasant, no acute distress, answers questions appropriately Exam: Patient examined at bedside and was resting in bed. Reports CP for the past week that has been intermittent and worsening but denies CP on exam. Reports diaphoresis earlier today but not now. Also denies nausea, vomiting, SOB. Denies any other complaints at this time. VS: 98.3F temp, HR 99, RR 15, BP 161/104, SPO2 94% on room air. - Head Head exam: Present: atraumatic, normocephalic - Eye Eye exam: Present: PERRL, conjuntiva pink, sclera anicteric Pupils: Present: PERRL - ENT ENT exam: Present: normal exam - Neck Neck exam general surgery: Present: normal inspection, supple, trachea midline. Absent: lymphadenopathy - Respiratory Respiratory exam: Present: CTAB. Absent: accessory muscle use, rales, rhonchi, wheezes - Cardiovascular Cardiovascular exam: Present: RRR, +S1, +S2, tachycardia - GI/Abdominal GI/Abdominal exam: Present: normal bowel sounds, soft, no peritoneal signs. Absent: distended, tenderness - Rectal Rectal exam: Present: deferred - Additional comments: exam deferred. - Extremities Exam Extremities exam: Present: normal inspection, warm, radial pulses palpable and symmetrical. Absent: calf tenderness, cyanotic, pedal edema - Back Exam Back exam: Present: normal inspection - Neurological Exam Neurological exam: Present: alert, CN II-XII intact, oriented X3, no focal deficits. Absent: pronater drift, facial droop, speech deficit - Psychiatric Psychiatric exam: Present: normal affect, normal mood - Skin Skin exam: Present: dry, intact Internal Med - H&P Results - Labs CBC & Chem 7: 08/28/18 10:57 08/28/18 08:34 Labs: Short CBC 08/28/18 08/28/18 Range/Units 08:34 10:57 WBC 9.0 10.3 (4.3-11.1) K/mcL Hgb 15.5 16.4 (12.9-16.9) g/dL Hct 48.4 51.2 H (37.5-50.1) % Plt Count 200 218 (140-400) K/mcL Neutrophils # 6.8 (1.6-8.9) K/mcL BMP 08/28/18 08:34 Sodium 138 Potassium 4.2 Chloride 102 Carbon Dioxide 27 BUN 19 Creatinine 1.43 H Glucose 270 H Calcium 9.1 Cardiac Enzymes 08/28/18 Range/Units 08:34 Troponin I 14.26 H* (< 0.04) ng/mL - Impressions ITS Impressions Chest X-Ray 08/28/18 08:18 IMPRESSION: 1. Cardiomegaly with vascular congestion and interstitial infiltrates likely representing edema and congestive failure. D/ / David Cesar MD / David Cesar MD Interpreting Provider: David Cesar MD - Diagnostic Studies Chest x-ray Additional comments: Impressions Chest X-Ray 08/28/18 08:18 IMPRESSION: 1. Cardiomegaly with vascular congestion and interstitial infiltrates likely representing edema and congestive failure. D/ / David Cesar MD / David Cesar MD Interpreting Provider: David Cesar MD - Assessment and plan (1) NSTEMI (non-ST elevated myocardial infarction) Current Visit: Yes Status: Acute Assessment and plan: Acute NSTEMI. Pt reports CP that began approx. 1 week ago and was intermittent in nature. Pt. reports pain became worse over the past several days and more constant. Pt. reports pain as centralized in chest as pressure w/numbness and tingling in bilateral elbows. States pain was worse w/exertion but no alleviating factors. Associated sx: diaphoresis. Hx of CABG (double bypass) in 1995. Previous [place] in w/o stent placement. Pt. placed on heparin drip d/t initial troponin of 14.26 and will be assess closely for signs of bleeding d/t hx of previous GI bleed and current positive fecal hemoccult. Will trend troponins. Echocardiogram ordered d/t CXR showing CHF. Last Echocardiogram on 02/21/2016 showed LVEF of 55-60%, normal LV chamber size and wall thickness and systolic function, atypical septal motion consistent with bundle branch block, indeterminate diastolic function, normal right ventricular structure and f unction, mildly dilated left atrium, no significant valvular dysfunction, and unable to estimated RVSP due to lack of TR jet. Cardiology consult ordered in ED and I appreciate the consult and recommendations. Plan for possible LHC. Continuous cardiac telemetry. EKG today shows sinus tachycardia with rate greater than 99, probable left atrial enlargement, and LBBB. Pt. discussed w/Dr. Beck who agrees w/plan of care. Pt. is high risk for further morbidity and complications d/t current NSTEMI, initial troponin of 14.26, CXR showing congestive failure, heparin gtt requiring close monitoring and titration, hx of GI bleed previously, hx, and risk factors. Inpatient. (2) History of GI bleed Current Visit: Yes Status: Acute Assessment and plan: Hx of GI bleed in October 2017. Pt. reports colonoscopy in February w/Dr. Jones that was unremarkable and negative for polyps. Pt. reports occasional small streak of bright blood on toilet paper currently but denies annamaria blood or black stool. Pt. placed on heparin drip for current initial troponin of 14.26 and to assess for any bleeding. Pt. and f/u labs to be monitored closely. Current Hgb 16.4, Hct 51.2. Positive fecal hemoccult test today. Continue pts. PO Protonix. (3) HTN (hypertension) Current Visit: Yes Status: Chronic Assessment and plan: Hx of chronic HTN. Monitor pt. and VS. Continue pts. Lopressor and Imdur. Qualifiers: Hypertension type: essential hypertension Qualified Code(s): I10 - Essential (primary) hypertension (4) HLD (hyperlipidemia) Current Visit: Yes Status: Chronic Assessment and plan: Hx of chronic HLD. Lipid panel in a.m. labs. Continue pts. Triglide, Lopid, and Lipitor. Qualifiers: Hyperlipidemia type: pure hypercholesterolemia Qualified Code(s): E78.00 - Pure hypercholesterolemia, unspecified; E78.0 - Pure hypercholesterolemia (5) GERD (gastroesophageal reflux disease) Current Visit: Yes Status: Chronic Assessment and plan: Hx of chronic GERD. Continue pts. PO Protonix. IVP Zofran for N/V. Qualifiers: Esophagitis presence: esophagitis presence not specified Qualified Code(s): K21.9 - Gastro-esophageal reflux disease without esophagitis (6) CKD (chronic kidney disease) stage 3, GFR 30-59 ml/min Current Visit: Yes Status: Chronic Assessment and plan: Hx of CKD. Currently stage 3 w/GFR of 49 and creatinine of 1.43. Will use IV fluids judiciously d/t CXR showing possible CHF. Monitor I&O and f/u labs. (7) CAD (coronary artery disease) Current Visit: Yes Status: Chronic Assessment and plan: Hx of chronic CAD. CABG (double bypass) in 1995. Previous [place] in w/o stent placement. HTN, HLD, DM. CXR today indicative of CHF. Continuous cardiac telemetry. Echocardiogram ordered. Continue pts. HTN and HLD medications. Qualifiers: Coronary Disease-Associated Artery/Lesion type: bypass graft [place] vs. transplanted heart: [place] heart Associated angina: without angina Qualified Code(s): I25.810 - Atherosclerosis of coronary artery bypass graft(s) without angina pectoris (8) DM2 (diabetes mellitus, type 2) Current Visit: Yes Status: Chronic Assessment and plan: Hx of chronic diabetes controlled by oral medications. Will hold oral medications and administer low-dose correction sliding scale insulin w/hypoglycemic protocol. A1c in a.m. labs. BG checks ACHS. NPO for now d/t possible LHC. BG checks Q6HR while NPO. Resume to ACHS when able to begin diet order. Start cardiac/ADA diet when appropriate following Cardiology rec ommendations. Qualifiers: Diabetes mellitus complication status: without complication Qualified Code(s): E11.9 - Type 2 diabetes mellitus without complications (9) DVT prophylaxis Current Visit: Yes Status: Acute Assessment and plan: Heparin drip started for current CP and troponin of 14.26. Pt. has hx of GI bleeding in October 2017. Monitor pt. closely for signs of bleeding. - Time Spent With Patient Total time spent is greater than 50% in coordination of care (as documented) at patient's floor/unit and/or counseling patient: Greater than 35 minutes <Stephanie Beck - Last Filed: 08/31/18 07:57> Internal Medicine - H&P: HPI History of present illness: Mr. Cervantes is a 72 year old male All Systems PM: A 10-system review of systems was performed and is negative for pertinent findings except as documented above in the HPI. - Constitutional Vitals: Temp Pulse Resp BP Pulse Ox 98.2 F 96 19 127/83 94 08/31/18 07:19 08/31/18 07:19 08/31/18 07:19 08/31/18 07:19 08/31/18 07:19 Internal Med - H&P Results - Labs CBC & Chem 7: 08/31/18 03:18 08/31/18 03:18 Labs: Short CBC 08/31/18 Range/Units 03:18 WBC 12.5 H (4.3-11.1) K/mcL Hgb 14.6 (12.9-16.9) g/dL Hct 43.7 (37.5-50.1) % Plt Count 225 (140-400) K/mcL Neutrophils # 9.1 H (1.6-8.9) K/mcL BMP 08/31/18 03:18 Sodium 131 L Potassium 3.6 Chloride 93 L Carbon Dioxide 29 BUN 31 H Creatinine 1.76 H Glucose 264 H Calcium 9.4 Liver Function 08/31/18 Range/Units 03:18 Total Bilirubin 0.9 (0.3-1.0) mg/dL AST 39 (13-39) Units/L ALT 20 (7-52) Units/L Alkaline Phosphatase 60 (34-104) Units/L Albumin 3.8 (3.5-5.7) g/dL - Impressions ITS Impressions Chest X-Ray 08/28/18 08:18 IMPRESSION: 1. Cardiomegaly with vascular congestion and interstitial infiltrates likely representing edema and congestive failure. D/ / David Cesar MD / David Cesar MD Interpreting Provider: David Cesar MD Echocardiogram 08/28/18 14:08 Impressions: LVEF 45-50%. Mild segmental left ventricular systolic dysfunction. Mild left ventricular diastolic dysfunction. Normal right ventricular structure and function. No significant valvular dysfunction. Chest X-Ray 08/29/18 02:00 IMPRESSION: Worsening pulmonary edema. D/ / Kenneth Arita MD / Kenneth Arita MD Interpreting Provider: Kenneth Arita MD - Assessment and plan (1) CAD (coronary artery disease) Current Visit: Yes Status: Chronic Qualifiers: Coronary Disease-Associated Artery/Lesion type: bypass graft [place] vs. transplanted heart: [place] heart Associated angina: without angina Qualified Code(s): I25.810 - Atherosclerosis of coronary artery bypass graft(s) without angina pectoris (2) DM2 (diabetes mellitus, type 2) Current Visit: Yes Status: Chronic Qualifiers: Diabetes mellitus complication status: without complication Qualified Code(s): E11.9 - Type 2 diabetes mellitus without complications (3) CKD (chronic kidney disease) stage 3, GFR 30-59 ml/min Current Visit: Yes Status: Chronic (4) NSTEMI (non-ST elevated myocardial infarction) Current Visit: Yes Status: Acute (5) HTN (hypertension) Current Visit: Yes Status: Chronic Qualifiers: Hypertension type: essential hypertension Qualified Code(s): I10 - Essential (primary) hypertension (6) HLD (hyperlipidemia) Current Visit: Yes Status: Chronic Qualifiers: Hyperlipidemia type: pure hypercholesterolemia Qualified Code(s): E78.00 - Pure hypercholesterolemia, unspecified; E78.0 - Pure hypercholesterolemia (7) GERD (gastroesophageal reflux disease) Current Visit: Yes Status: Chronic Qualifiers: Esophagitis presence: esophagitis presence not specified Qualified Code(s): K21.9 - Gastro-esophageal reflux disease without esophagitis (8) History of GI bleed Current Visit: Yes Status: Acute (9) DVT prophylaxis Current Visit: Yes Status: Acute - Time Spent With Patient Total time spent is greater than 50% in coordination of care (as documented) at patient's floor/unit and/or counseling patient: - Attending Attestation I personally and independently interviewed and examined the patient , and I reviewed the patient's medical record . I am in agreement with proposed assessment and proposed treatment plan. I discussed my findings and recommendation with the patient and answer his questions. The patient's medical records were edited to accurately reflect this encounter.
--- NOTE | 2018-08-28 19:25 | Pre-Sedation Evaluation ---
Pre-sedation evaluation - Pre-sedation checklist Date of procedure: 08/28/18 Procedure: [facility] Recent Vitals: Last Vital Signs Temp 98.3 F 08/28/18 10:46 Pulse 99 08/28/18 10:46 Resp 15 08/28/18 10:46 BP 161/104 08/28/18 10:46 Pulse Ox 94 08/28/18 10:46 H&P (including ROS) documented in medical record: Yes Previous reaction to sedatives/anesthetics: No Dietary Status: No solid food in preceding 4 hrs and no liquid in preceding 2 hrs Dentition: full dentition ASA Classification *see protocol: CLASS II-Mild systemic disease Cardiac Registry (Cardio Only) - Functional Capacity Functional Capacity: >=4 METS with symptoms - Clincal Frailty Scale Clinical Frailty Scale: Managing Well
[2018-08-29] MEDS ORDERED: Furosemide 40 MG/4 ML VIAL IVP ONE ×2 (02:19→09:00)
[2018-08-29] MEDS ORDERED: Insulin LISPRO 300 UNITS/3 ML VIAL SQ ONE (02:43)
[2018-08-29 03:26] LABS: Basophils % 0.3 %; Eosinophils % 0.1 %; Hematocrit 52.7 % (37.5-50.1); Hemoglobin 17.2 g/dL (12.9-16.9); Immature Granulocytes % 0.4 % (0-4); Lymphocytes # 1.4 K/mcL (0.6-4.6); Lymphocytes % 9.9 %; Mean Corpuscular HGB Conc 32.6 g/dL (31.6-35.5); Mean Corpuscular Hemoglobin 27.3 pg (28.0-33.3); Mean Corpuscular Volume 83.5 fL (83.0-100.0); Mean Platelet Volume 10.4 fL (9.4-12.4); Monocytes # 0.9 K/mcL (0.0-1.3); Monocytes % 6.4 %; Neutrophils # 11.3 K/mcL (1.6-8.9); Platelet Count 263 K/mcL (140-400); Red Blood Count 6.31 M/mcL (4.19-5.50); Red Cell Distribution Width 14.9 % (11.5-14.5); Segmented Neutrophils % 82.9 %
[2018-08-29 03:47] LABS: Albumin 4.3 g/dL (3.5-5.7); Albumin/Globulin Ratio 1.2 (1.1-2.2); Bilirubin,Total 0.7 mg/dL (0.3-1.0); Calcium 9.8 mg/dL (8.6-10.3); Chol/HDL Ratio 7.2 (0-4.9); Globulin 3.5 g/dL (2.4-3.5); Magnesium 1.6 mg/dL (1.6-2.6); Potassium 4.2 mEq/L (3.5-5.1); Total Protein 7.8 g/dL (6.4-8.9)
[2018-08-29] MEDS: *HR* Heparin 5,000 UNIT/ML VIAL IVP PRN ×2 (03:54→20:12)
[2018-08-29 07:18] LABS: Estimated Average Glucose 235 mg/dl; Hemoglobin A1C 9.8 %
--- NOTE | 2018-08-29 08:03 | Internal Med Progress Note ---
Hospitalist Progress Note - Encounter Date of Encounter: 08/29/18 Time of Encounter: 08:00 - Exam Vitals: Temp Pulse Resp BP Pulse Ox 98.1 F 103 22 114/71 94 08/29/18 07:37 08/29/18 07:37 08/29/18 07:37 08/29/18 07:37 08/29/18 07:37 Exam: Gen - Awake, alert, oriented x 3, no acute distress HEENT - NCAT, PERRLA, EOMI, hearing grossly intact, oropharynx benign CV - RRR, normal S1 and S2, no M/R/G, no BLE edema Resp - Normal WOB, CTAB, no W/R/R GI - Soft, NT/ND, no masses, normal bowel sounds, Skin - Warm, dry, no rashes/lesions/ulcers Psych - Normal mood and affect, no depression or anxiety - Assessment and Plan (1) NSTEMI (non-ST elevated myocardial infarction) Current Visit: Yes Status: Acute Assessment and Plan: Acute NSTEMI. Pt reports CP that began approx. 1 week ago and was intermittent in nature. Troponins trended as high as 39. Patient is s/p cardiac cath in last 24hrs show ing severe 3 vessel disease Cardiology is on board and will discuss with CT surgery regarding plan for CABG and PCI (2) CAD (coronary artery disease) Current Visit: Yes Status: Chronic Assessment and Plan: CAD with NSTEMI s/p cath. For CABG. continue heparin drip (3) DM2 (diabetes mellitus, type 2) Current Visit: Yes Status: Chronic Assessment and Plan: Continue insulin as needed and monitor fingersticks (4) CKD (chronic kidney disease) stage 3, GFR 30-59 ml/min Current Visit: Yes Status: Chronic Assessment and Plan: Hx of CKD. Currently stage 3 w/GFR of 49 and creatinine of 1.43. Will use IV fluids judiciously d/t CXR showing possible CHF. Monitor I&O and f/u labs. (5) HTN (hypertension) Current Visit: Yes Status: Chronic Assessment and Plan: Hx of chronic HTN. Monitor pt. and VS. Continue pts. Lopressor and Imdur. (6) HLD (hyperlipidemia) Current Visit: Yes Status: Chronic Assessment and Plan: Continue pts. Triglide, Lopid, and Lipitor. (7) GERD (gastroesophageal reflux disease) Current Visit: Yes Status: Chronic Assessment and Plan: Hx of chronic GERD. Continue pts. PO Protonix. IVP Zofran for N/V. (8) History of GI bleed Current Visit: Yes Status: Acute Assessment and Plan: Continue protnix. Monitor hemoglobin (9) DVT prophylaxis Current Visit: Yes Status: Acute Assessment and Plan: On heparin drip - Time Spent with Patient Total time spent is greater than 50% in coordination of care (as documented) at patient's floor/unit and/or counseling patient: Internal Medicine: Result - Labs CBC & Chem 7: 08/29/18 02:56 08/29/18 02:56 Labs: Short CBC 08/28/18 08/28/18 08/29/18 Range/Units 08:34 10:57 02:56 WBC 9.0 10.3 13.7 H (4.3-11.1) K/mcL Hgb 15.5 16.4 17.2 H (12.9-16.9) g/dL Hct 48.4 51.2 H 52.7 H (37.5-50.1) % Plt Count 200 218 263 (140-400) K/mcL Neutrophils # 6.8 11.3 H (1.6-8.9) K/mcL BMP 08/28/18 08/29/18 08:34 02:56 Sodium 138 135 L Potassium 4.2 4.2 Chloride 102 97 L Carbon Dioxide 27 25 BUN 19 17 Creatinine 1.43 H 1.60 H Glucose 270 H 360 H Calcium 9.1 9.8 Cardiac Enzymes 08/28/18 08/28/18 08/28/18 Range/Units 08:34 13:50 19:28 Troponin I 14.26 H* 21.71 H* 39.52 H* (< 0.04) ng/mL 08/29/18 Range/Units 01:30 Troponin I 37.59 H* (< 0.04) ng/mL Liver Function 08/29/18 Range/Units 02:56 Total Bilirubin 0.7 (0.3-1.0) mg/dL AST 195 H (13-39) Units/L ALT 37 (7-52) Units/L Alkaline Phosphatase 65 (34-104) Units/L Albumin 4.3 (3.5-5.7) g/dL - ABG Interpretation ABG results: PT/INR, D-dimer PT 11.1 Seconds (9.4-12.1) 08/28/18 10:57 - Impressions Impressions Chest X-Ray 08/28/18 08:18 IMPRESSION: 1. Cardiomegaly with vascular congestion and interstitial infiltrates likely representing edema and congestive failure. D/ / David Cesar MD / David Cesar MD Interpreting Provider: David Cesar MD Echocardiogram 08/28/18 14:08 Impressions: LVEF 45-50%. Mild segmental left ventricular systolic dysfunction. Mild left ventricular diastolic dysfunction. Normal right ventricular structure and function. No significant valvular dysfunction. Chest X-Ray 08/29/18 02:00 IMPRESSION: Worsening pulmonary edema. D/ / Kenneth Arita MD / Kenneth Arita MD Interpreting Provider: Kenneth Arita MD Consult Discharge Plan - Plan Referrals: Bill Penn DO [Primary Care Provider] - (2) CAD (coronary artery disease) Qualifiers: Coronary Disease-Associated Artery/Lesion type: bypass graft [place] vs. transplanted heart: [place] heart Associated angina: without angina Qualified Code(s): I25.810 - Atherosclerosis of coronary artery bypass graft(s) without angina pectoris (3) DM2 (diabetes mellitus, type 2) Qualifiers: Diabetes mellitus complication status: without complication Qualified Code(s): E11.9 - Type 2 diabetes mellitus without complications (5) HTN (hypertension) Qualifiers: Hypertension type: essential hypertension Qualified Code(s): I10 - Essential (primary) hypertension (6) HLD (hyperlipidemia) Qualifiers: Hyperlipidemia type: pure hypercholesterolemia Qualified Code(s): E78.00 - Pure hypercholesterolemia, unspecified; E78.0 - Pure hypercholesterolemia (7) GERD (gastroesophageal reflux disease) Qualifiers: Esophagitis presence: esophagitis presence not specified Qualified Code(s): K21.9 - Gastro-esophageal reflux disease without esophagitis
[2018-08-29] MEDS: Insulin LISPRO 300 UNITS/3 ML VIAL SQ SCH ×4 (08:13→20:10)
[2018-08-29] MEDS: amLODIPine 5 MG TABLET PO SCH (09:28)
[2018-08-29] MEDS: Fenofibrate 54 MG TABLET PO SCH (09:28)
[2018-08-29] MEDS: Isosorbide MONOnitrate (24 HR) 30 MG TAB.ER.24H PO SCH (09:28)
[2018-08-29] MEDS: Aspirin Enteric Coated 81 MG Tablet PO SCH (09:28)
--- NOTE | 2018-08-29 09:41 | Cardiothoracic Consult Note ---
Date of Encounter: 08/29/18 Time of Encounter: 09:35 Assessment and Plan (1) NSTEMI (non-ST elevated myocardial infarction) Current Visit: Yes Status: Acute The patient is a 72-year-old type II diabetic, hypertensive man with known CAD and was admitted to [facility] with a diagnosis of an acute NSTEMI. The patient underwent a transthoracic echocardiogram which revealed an LVEF 45%. Subsequent cardiac catheterization revealed severe 3 vessel [place] disease and graft disease. In particular, the patient has an 80% distal left main lesion, a 25% proximal LAD lesion, 70% mid LAD lesion, a completely occluded proximal LCx, completely occluded proximal RCA, completely occluded saphenous vein graft to the first obtuse marginal branch, and a 95% proximal lesion in the saphenous vein graft to the PDA. The patient has been recommended for redo CABG versus PCI with LV support. The STS risk calculator reveals an operative mortality risk 5.87%, deep sternal wound infection risk 0.95%, permanent stroke risk 3.26%, renal failure risk 11.93%, and reoperation risk 10.75%. While a redo CABG is feasible, the only bypassable target would be the LAD. The cardiac catheterization shows limited or no flow in the branch vessels of the LCx and RCA distributions. I will discuss the possibility of PCI with LV support with Dr. Michael Oshea. The assessment and plan as outlined above was discussed with the patient and/or family members who expressed understanding and agreement. All questions were answered. - History of Present Illness Consult date: 08/28/18 Requesting physician: Musa Chou Consult reason: CABG evaluation Chief complaint: NSTEMI History of present illness: Mr. Cervantes is a 72 year old type II diabetic, hypertensive man with known CAD who was admitted to [facility] yesterday with a 2-3 day history of exertional substernal chest pain. His cardiac history dates back to 1995 at which time he underwent CABG2 by Dr. Alan Sy had [facility] in [facility]. He states that he did well until 08/26/2018 when he experienced sudden onset of nonradiating left precordial chest pain while repairing a leak and his roof. The pain persisted throughout the day and would worsen with activity. He was eventually convinced to seek medical attention by his and was evaluated at [facility] emergency department yesterday. During the evaluation he was found to have elevated troponin I levels consistent with an acute NSTEMI. He was admitted for further cardiac care. A transthoracic echocardiogram revealed an LVEF 45-50% with mild segmental left ventricular dysfunction and no significant valvular dysfunction. Subsequent cardiac catheterization revealed severe 3 vessel [place] disease and graft diseas e. In particular, the patient had an 80% distal left main lesion, a 25% proximal LAD lesion, a 70% mid LAD lesion, a completely occluded proximal LCx, a completely occluded proximal RCA, a completely occluded saphenous vein graft to the OM1 branch, and a 95% proximal lesion in the saphenous vein graft to the PDA. The PDA is a small vessel distally. I been asked to evaluate the patient for possible redo CABG versus PCI with LV support. Past Med Surg Social Fam HX - Past Medical History Medical history: COPD, coronary artery disease, diabetes, hyperlipidemia, hypertension, myocardial infarction, renal disease (CKD, Stage IIIB), TIA Additional medical history: NH 1988 Psychiatric history: no psych history - Past Surgical History Surgical History: coronary bypass (CABG) Additional surgical history: heart surgery 1995 - Social History Smoking Status: Former smoker Packs per day: 1 PPD x 40+YRS (quit 1995) Smokeless Tobacco Status: No Alcohol use: none Drug use: none Occupational status: retired Current living situation: Home - Independent Activity Level: Independent ambulation, Very active Recent Out of Country Travel Within the Last 8 Weeks: No Exposure or Possible Exposure to Illness During Travel: No - Family History Brother Race: Family Member Ethnicity: Non- Living Status: Age at : 52 Cause of : Lung cancer Hx Family Cancer: Yes (Lung, Squamous cell carcinoma) Father Race: Family Member Ethnicity: Non- Living Status: Age at : 71 Cause of : CVA Hx Family Cardiac Disorders: Yes Hx Family Respiratory Disorders: No Hx Family Cancer: No Hx Family GI Disorders: No Hx Family Genitourinary Disorders: No Hx Family Endocrine Disorder: No Hx Family Musculoskeletal Disorders: No Hx Family Neuromuscular Disorders: No Hx Family Neurologic Disorders: No (CVA) Hx Family HEENT Disorders: No Hx Family Autoimmune Disorders: No Hx Family Reproductive Disorders: No Hx Family Psychosocial Disorders: No Hx Family Medical Disorders: No Maternal Race: Family Member Ethnicity: Non- Living Status: Age at : 68 Cause of : NH, CAD Hx Family Cardiac Disorders: Yes Hx Family Respiratory Disorders: No Hx Family Cancer: No Hx Family GI Disorders: No Hx Family Genitourinary Disorders: No Hx Family Endocrine Disorder: Yes (DM) Hx Family Musculoskeletal Disorders: No Hx Family Neuromuscular Disorders: No Hx Family Neurologic Disorders: No Hx Family HEENT Disorders: No Hx Family Autoimmune Disorders: No Hx Family Reproductive Disorders: No Hx Family Psychosocial Disorders: No Medications and Allergies Aspirin [Adult Low Dose Aspirin EC] 81 mg PO DAILY 01/04/16 [History] Metoprolol [Lopressor] 50 mg PO BID 01/04/16 [History] [place]-3/Dha/Epa/Fish Oil [Fish Oil Dr 500 mg Softgel] 1,000 mg PO DAILY 01/04/16 [History] Isosorbide MONOnitrate (24 HR) [Imdur] 30 mg PO DAILY #30 tab.er.24h 01/08/16 [Rx] Atorvastatin [Lipitor] 40 mg PO HS 04/01/16 [History] Gemfibrozil [Lopid] 600 mg PO BIDWM 04/01/16 [History] Metformin HCl [Glucophage] 1,000 mg PO DAILY 04/01/16 [History] Fenofibrate Nanocrystallized [Triglide] 160 mg PO DAILY 08/28/18 [History] Pantoprazole Sodium [Protonix] 40 mg PO DAILY 08/28/18 [History] glipiZIDE [Glipizide] 10 mg PO BID 08/28/18 [History] Allergy/AdvReac Type Severity Reaction Status Date / Time No Known Allergies Allergy Verified 10/20/17 13:30 All Systems Review: The remainder of the systems were reviewed and are negative Physical Examination Vital Signs, Last 4 Hours Temp Pulse Resp BP Pulse Ox 08/29/18 07:37 98.1 F 103 22 114/71 94 General: Conversant, No Apparent Distress HEENT: Atraumatic, Normocephaly, Trachea midline Cardiac: Reg Rate and Rhythm, Normal S1 and S2, No Murmur Lungs: Normal Breath Sounds, No Wheeze, Rales, Rhonchi Neuro: Alert and responsive, No focal deficits noted, Motor nerves intact, Sensory nerves intact Vascular: Normal capillary refill Abdomen: Soft, Non-tender Skin: No rashes noted on visualized skin Musculoskeletal: No Chest Wall Tenderness Extremities: No Clubbing, No Cyanosis, No Edema, Normal Pulses Results 08/29/18 02:56 08/29/18 02:56 Lab Results, Last 24 hours 08/28/18 08/28/18 08/28/18 10:57 10:57 13:50 WBC 10.3 Hgb 16.4 Hct 51.2 H Plt Count 218 INR 1.0 Sodium Potassium Chloride Carbon Dioxide BUN Creatinine Glucose Calcium Magnesium Total Bilirubin AST ALT Alkaline Phosphatase Troponin I 21.71 H* 08/28/18 08/29/18 08/29/18 19:28 01:30 02:56 WBC 13.7 H Hgb 17.2 H Hct 52.7 H Plt Count 263 INR Sodium Potassium Chloride Carbon Dioxide BUN Creatinine Glucose Calcium Magnesium Total Bilirubin AST ALT Alkaline Phosphatase Troponin I 39.52 H* 37.59 H* 08/29/18 02:56 WBC Hgb Hct Plt Count INR Sodium 135 L Potassium 4.2 Chloride 97 L Carbon Dioxide 25 BUN 17 Creatinine 1.60 H Glucose 360 H Calcium 9.8 Magnesium 1.6 Total Bilirubin 0.7 AST 195 H ALT 37 Alkaline Phosphatase 65 Troponin I - Imaging Chest Xray: image reviewed (Cardiomegaly. No active pulmonary disease.) Consult Discharge Plan - Plan Referrals: Bill Penn DO [Primary Care Provider] -
--- NOTE | 2018-08-29 14:50 | Cardiology Progress Note ---
Date of Encounter: 08/29/18 Time of Encounter: 14:45 Assessment and Plan (1) NSTEMI (non-ST elevated myocardial infarction) Current Visit: Yes Status: Acute Severe left main and critical SVG PDA stenosis (provides LCx collaterals) with systolic CHF. CT surgery consulted and final decision on cardiac surgery versus high risk PCI of left main And SVG w EPD with Impella will be determined with patient. Revascularization is prudent prior to discharge. Will optimize medical therapy prior to revascularization. (2) HLD (hyperlipidemia) Current Visit: No Status: Acute Qualifiers: Hyperlipidemia type: unspecified Qualified Code(s): E78.5 - Hyperlipidemia, unspecified Discussion w patient/family: The assessment and plan as outlined above was discussed with the patient and/or family members who expressed understanding and agreement. All questions were answered. Thank you for involving us in the care of your patient. Please call with any questions. Subjective Principal diagnosis: chest pain/nstemi Interval history: no chest/jaw/arm discomfort overnight - has been in bed. no melena or hematochezia Objective Vital Signs, Last 4 Hours Temp Pulse Resp BP Pulse Ox 08/29/18 11:30 97.9 F 118 21 115/73 93 General: Conversant HEENT: Atraumatic Neck: No JVD Cardiac: Reg Rate and Rhythm Lungs: Normal Breath Sounds Neuro: Alert and responsive Skin: No rashes noted on visualized skin Musculoskeletal: No Chest Wall Tenderness Extremities: No Edema Results 08/29/18 02:56 08/29/18 02:56 Lab Results 08/28/18 08/29/18 08/29/18 19:28 01:30 02:56 WBC 13.7 H Hgb 17.2 H Hct 52.7 H Plt Count 263 Sodium Potassium Chloride Carbon Dioxide BUN Creatinine Glucose Calcium Magnesium Total Bilirubin AST ALT Alkaline Phosphatase Troponin I 39.52 H* 37.59 H* 08/29/18 02:56 WBC Hgb Hct Plt Count Sodium 135 L Potassium 4.2 Chloride 97 L Carbon Dioxide 25 BUN 17 Creatinine 1.60 H Glucose 360 H Calcium 9.8 Magnesium 1.6 Total Bilirubin 0.7 AST 195 H ALT 37 Alkaline Phosphatase 65 Troponin I Consult Discharge Plan - Plan Referrals: Bill Penn DO [Primary Care Provider] -
[2018-08-29] MEDS: Heparin 25,000 UNIT/500 ML D5W 25,000 UNIT/500 ML BAG IVC SCH (20:24)
[2018-08-30 02:40] LABS: Basophils # 0.1 K/mcL (0.0-0.2); Basophils % 0.3 %; Eosinophils % 0.1 %; Hematocrit 44.9 % (37.5-50.1); Immature Granulocytes % 0.3 % (0-4); Lymphocytes # 2.6 K/mcL (0.6-4.6); Lymphocytes % 17.2 %; Mean Corpuscular HGB Conc 33.4 g/dL (31.6-35.5); Mean Corpuscular Hemoglobin 27.4 pg (28.0-33.3); Mean Corpuscular Volume 82.1 fL (83.0-100.0); Mean Platelet Volume 10.2 fL (9.4-12.4); Monocytes # 1.3 K/mcL (0.0-1.3); Monocytes % 8.4 %; Platelet Count 225 K/mcL (140-400); Red Blood Count 5.47 M/mcL (4.19-5.50); Red Cell Distribution Width 14.8 % (11.5-14.5); Segmented Neutrophils % 73.7 %
[2018-08-30 02:59] LABS: Albumin 3.8 g/dL (3.5-5.7); Calcium 9.6 mg/dL (8.6-10.3); Globulin 3.8 g/dL (2.4-3.5); Potassium 3.7 mEq/L (3.5-5.1); Total Protein 7.6 g/dL (6.4-8.9)
[2018-08-30 03:00] LABS: Magnesium 1.7 mg/dL (1.6-2.6); Phosphorous 3.1 mg/dL (2.7-4.5)
[2018-08-30] MEDS: *HR* Heparin 5,000 UNIT/ML VIAL IVP PRN (03:46)
--- NOTE | 2018-08-30 07:53 | Internal Med Progress Note ---
Hospitalist Progress Note - Encounter Date of Encounter: 08/30/18 Time of Encounter: 08:00 - Exam Vitals: Temp Pulse Resp BP Pulse Ox 98.1 F 101 20 115/76 91 08/30/18 07:07 08/30/18 07:07 08/30/18 07:07 08/30/18 07:07 08/30/18 07:07 Exam: Gen - Awake, alert, oriented x 3, no acute distress HEENT - NCAT, PERRLA, EOMI, hearing grossly intact, oropharynx benign CV - RRR, normal S1 and S2, no M/R/G, no BLE edema Resp - Normal WOB, CTAB, no W/R/R GI - Soft, NT/ND, no masses, normal bowel sounds, Skin - Warm, dry, no rashes/lesions/ulcers Psych - Normal mood and affect, no depression or anxiety - Assessment and Plan (1) NSTEMI (non-ST elevated myocardial infarction) Current Visit: Yes Status: Acute Assessment and Plan: Acute NSTEMI. Pt reports CP that began approx. 1 week ago and was intermittent in nature. Troponins trended as high as 39. Patient is s/p cardiac cath in last 24hrs show ing severe 3 vessel disease Cardiology is on board and will discuss with CT surgery regarding plan for CABG and PCI Will require medical optimization prior to procedure. Plan for CABG and PCI on friday if creatinine is stable. (2) CAD (coronary artery disease) Current Visit: Yes Status: Chronic Assessment and Plan: CAD with NSTEMI s/p cath. For CABG. continue heparin drip (3) DM2 (diabetes mellitus, type 2) Current Visit: Yes Status: Chronic Assessment and Plan: Continue insulin as needed and monitor fingersticks (4) CKD (chronic kidney disease) stage 3, GFR 30-59 ml/min Current Visit: Yes Status: Chronic Assessment and Plan: Zoe on CKD stage 3. CXR shows worsening pulmonary edema. Possibly 2/2 passive congestion from CHF. Will give one dose of lasix and repeat creatinine (5) HTN (hypertension) Current Visit: Yes Status: Chronic Assessment and Plan: Hx of chronic HTN. Monitor pt. and VS. Continue pts. Lopressor and Imdur. (6) HLD (hyperlipidemia) Current Visit: Yes Status: Chronic Assessment and Plan: Continue pts. Triglide, Lopid, and Lipitor. (7) GERD (gastroesophageal reflux disease) Current Visit: Yes Status: Chronic Assessment and Plan: Continue protonix (8) History of GI bleed Current Visit: Yes Status: Acute Assessment and Plan: Continue protonix. Monitor hemoglobin (9) DVT prophylaxis Current Visit: Yes Status: Acute Assessment and Plan: On heparin drip - Time Spent with Patient Total time spent is greater than 50% in coordination of care (as documented) at patient's floor/unit and/or counseling patient: Internal Medicine: Result - Labs CBC & Chem 7: 08/30/18 02:21 08/30/18 02:21 Labs: Short CBC 08/30/18 Range/Units 02:21 WBC 15.0 H (4.3-11.1) K/mcL Hgb 15.0 D (12.9-16.9) g/dL Hct 44.9 (37.5-50.1) % Plt Count 225 (140-400) K/mcL Neutrophils # 11.0 H (1.6-8.9) K/mcL BMP 08/30/18 02:21 Sodium 131 L Potassium 3.7 Chloride 91 L Carbon Dioxide 29 BUN 24 H Creatinine 1.73 H Glucose 311 H Calcium 9.6 Liver Function 08/30/18 Range/Units 02:21 Total Bilirubin 1.0 (0.3-1.0) mg/dL AST 87 H (13-39) Units/L ALT 29 (7-52) Units/L Alkaline Phosphatase 60 (34-104) Units/L Albumin 3.8 (3.5-5.7) g/dL - ABG Interpretation ABG results: PT/INR, D-dimer PT 11.1 Seconds (9.4-12.1) 08/28/18 10:57 Consult Discharge Plan - Plan Referrals: Bill Penn DO [Primary Care Provider] - (2) CAD (coronary artery disease) Qualifiers: Coronary Disease-Associated Artery/Lesion type: bypass graft [place] vs. transplanted heart: [place] heart Associated angina: without angina Qualified Code(s): I25.810 - Atherosclerosis of coronary artery bypass graft(s) without angina pectoris (3) DM2 (diabetes mellitus, type 2) Qualifiers: Diabetes mellitus complication status: without complication Qualified Code(s): E11.9 - Type 2 diabetes mellitus without complications (5) HTN (hypertension) Qualifiers: Hypertension type: essential hypertension Qualified Code(s): I10 - Essential (primary) hypertension (6) HLD (hyperlipidemia) Qualifiers: Hyperlipidemia type: pure hypercholesterolemia Qualified Code(s): E78.00 - Pure hypercholesterolemia, unspecified; E78.0 - Pure hypercholesterolemia (7) GERD (gastroesophageal reflux disease) Qualifiers: Esophagitis presence: esophagitis presence not specified Qualified Code(s): K21.9 - Gastro-esophageal reflux disease without esophagitis
[2018-08-30] MEDS: Insulin LISPRO 300 UNITS/3 ML VIAL SQ SCH ×3 (08:08→16:52)
[2018-08-30] MEDS ORDERED: Insulin DETEMIR 100 UNIT/ML X5UNITS SQ ONE (08:46)
[2018-08-30] MEDS: Fenofibrate 54 MG TABLET PO SCH (08:47)
[2018-08-30] MEDS: Aspirin Enteric Coated 81 MG Tablet PO SCH (08:48)
[2018-08-30] MEDS: amLODIPine 5 MG TABLET PO SCH (08:48)
[2018-08-30] MEDS: Isosorbide MONOnitrate (24 HR) 30 MG TAB.ER.24H PO SCH (08:48)
--- NOTE | 2018-08-30 08:53 | Cardiothoracic Progress Note ---
Date of Encounter: 08/30/18 Time of Encounter: 08:51 - Assessment and plan (1) NSTEMI (non-ST elevated myocardial infarction) Current Visit: Yes Status: Acute The patient is a 72-year-old type II diabetic, hypertensive man with known CAD and was admitted to [facility] with a diagnosis of an acute NSTEMI. The patient underwent a transthoracic echocardiogram which revealed an LVEF 45%. Subsequent cardiac catheterization revealed severe 3 vessel [place] disease and graft disease. In particular, the patient has an 80% distal left ma in lesion, a 25% proximal LAD lesion, 70% mid LAD lesion, a completely occluded proximal LCx, completely occluded proximal RCA, completely occluded saphenous vein graft to the first obtuse marginal branch, and a 95% proximal lesion in the saphenous vein graft to the PDA. The patient has been recommended for redo CABG versus PCI with LV support. The STS risk calculator reveals an operative mortal ity risk 5.87%, deep sternal wound infection risk 0.95%, permanent stroke risk 3.26%, renal failure risk 11.93%, and reoperation risk 10.75%. While a redo CABG is feasible, the only bypassable target would be the LAD. The cardiac catheterization shows limited or no flow in the branch vessels of the [place] LCx and RCA distributions. I will discuss the possibility of PCI with LV support with Dr. Michael Oshea. Tentatively, the patient is scheduled for PCI with Impella support on 09/01/2018 if his renal function stabilizes. Currently his creatinine has increased slowly since his diagnostic catheterization. The assessment and plan as outlined above was discussed with the patient and/or family members who expressed understanding and agreement. All questions were answered. - Subjective Interval history: The patient remained hemodynamic stable overnight. He is currently sitting at the bedside and has no complaints. He has had no chest pain since admission. Vital Signs, Last 4 Hours Temp Pulse Resp BP Pulse Ox 08/30/18 07:07 98.1 F 101 20 115/76 91 Oxgyen Flow Rate Oxygen Flow Rate (LPM) 6 Clinical Data, last 8 Hours Output, Urine Amount 300 Output, Urine Amount 300 Weight 08/28/18 08/29/18 08/30/18 23:59 23:59 23:59 Weight 85.332 kg 90.2 kg 90.5 kg - Physical Examination General: Conversant, No Apparent Distress Neck: No JVD, Normal carotid pulses Cardiac: Reg Rate and Rhythm, Normal S1 and S2, No Murmur Lungs: Normal Breath Sounds, No Wheeze, Rales, Rhonchi Neuro: Alert and responsive, No focal deficits noted Vascular: Normal capillary refill Extremities: No Clubbing, No Cyanosis, No Edema - Labs 08/30/18 02:21 08/30/18 02:21 Lab Results, Last 24 hours 08/30/18 08/30/18 08/30/18 02:21 02:21 02:21 WBC 15.0 H Hgb 15.0 D Hct 44.9 Plt Count 225 Sodium 131 L Potassium 3.7 Chloride 91 L Carbon Dioxide 29 BUN 24 H Creatinine 1.73 H Glucose 311 H Calcium 9.6 Magnesium 1.7 Total Bilirubin 1.0 AST 87 H ALT 29 Alkaline Phosphatase 60 Consult Discharge Plan - Plan Referrals: Bill Penn DO [Primary Care Provider] -
[2018-08-30] MEDS ORDERED: Furosemide 20 MG/2 ML VIAL IVP ONE ×2 (12:54→13:30)
[2018-08-30] MEDS ORDERED: 0.9 % Sodium Chloride 1,000 ML IVC SCH (13:00)
[2018-08-30] MEDS: Heparin 25,000 UNIT/500 ML D5W 25,000 UNIT/500 ML BAG IVC SCH (15:01)
[2018-08-30] MEDS ORDERED: Insulin LISPRO 300 UNITS/3 ML VIAL SQ ONE (16:56)
[2018-08-30] MEDS ORDERED: Insulin DETEMIR 100 UNIT/ML X5UNITS SQ SCH (21:00)
[2018-08-30] MEDS ORDERED: Insulin LISPRO 300 UNITS/3 ML VIAL SQ SCH (23:45)
[2018-08-31 03:44] LABS: Basophils # 0.1 K/mcL (0.0-0.2); Basophils % 0.4 %; Eosinophils # 0.1 K/mcL (0.0-0.6); Eosinophils % 0.6 %; Hematocrit 43.7 % (37.5-50.1); Hemoglobin 14.6 g/dL (12.9-16.9); Immature Granulocytes % 0.2 % (0-4); Lymphocytes # 2.4 K/mcL (0.6-4.6); Lymphocytes % 19.2 %; Mean Corpuscular HGB Conc 33.4 g/dL (31.6-35.5); Mean Corpuscular Hemoglobin 27.3 pg (28.0-33.3); Mean Corpuscular Volume 81.7 fL (83.0-100.0); Mean Platelet Volume 10.4 fL (9.4-12.4); Monocytes # 0.9 K/mcL (0.0-1.3); Monocytes % 6.9 %; Neutrophils # 9.1 K/mcL (1.6-8.9); Platelet Count 225 K/mcL (140-400); Red Blood Count 5.35 M/mcL (4.19-5.50); Red Cell Distribution Width 14.6 % (11.5-14.5); Segmented Neutrophils % 72.7 %
[2018-08-31 04:04] LABS: Albumin 3.8 g/dL (3.5-5.7); Bilirubin,Total 0.9 mg/dL (0.3-1.0); Calcium 9.4 mg/dL (8.6-10.3); Potassium 3.6 mEq/L (3.5-5.1); Total Protein 7.8 g/dL (6.4-8.9)
[2018-08-31 04:05] LABS: Magnesium 1.9 mg/dL (1.6-2.6); Phosphorous 2.3 mg/dL (2.7-4.5)
--- NOTE | 2018-08-31 07:40 | Internal Med Progress Note ---
Hospitalist Progress Note - Encounter Date of Encounter: 08/31/18 Time of Encounter: 07:30 - Exam Vitals: Temp Pulse Resp BP Pulse Ox 98.2 F 96 19 127/83 94 08/31/18 07:19 08/31/18 07:19 08/31/18 07:19 08/31/18 07:19 08/31/18 07:19 Exam: Gen - Awake, alert, oriented x 3, no acute distress HEENT - NCAT, PERRLA, EOMI, hearing grossly intact, oropharynx benign CV - RRR, normal S1 and S2, no M/R/G, no BLE edema Resp - Normal WOB, CTAB, no W/R/R GI - Soft, NT/ND, no masses, normal bowel sounds, Skin - Warm, dry, no rashes/lesions/ulcers Psych - Normal mood and affect, no depression or anxiety - Assessment and Plan (1) NSTEMI (non-ST elevated myocardial infarction) Current Visit: Yes Status: Acute Assessment and Plan: Acute NSTEMI. Pt reports CP that began approx. 1 week ago and was intermittent in nature. Troponins trended as high as 39. Patient is s/p cardiac cath in last 24hrs showi ng severe 3 vessel disease Cardiology is on board and will discuss with CT surgery regarding plan for CABG and PCI Will require medical optimization prior to procedure. Plan for CABG and PCI on friday if creatinine is stable. Renal consult today as patient's creatinine is getting worse with gentle diuresis despite CXR showing fluid overload (2) CAD (coronary artery disease) Current Visit: Yes Status: Chronic Assessment and Plan: CAD with NSTEMI s/p cath. For CABG. continue heparin drip (3) DM2 (diabetes mellitus, type 2) Current Visit: Yes Status: Chronic Assessment and Plan: Continue insulin as needed and monitor fingersticks (4) CKD (chronic kidney disease) stage 3, GFR 30-59 ml/min Current Visit: Yes Status: Chronic Assessment and Plan: Zoe on CKD stage 3. CXR shows worsening pulmonary edema. Possibly 2/2 passive congestion from CHF. Will give one dose of lasix and repeat creatinine Creatinine worse. Renal consult and appreciate recs (5) HTN (hypertension) Current Visit: Yes Status: Chronic Assessment and Plan: Hx of chronic HTN. Monitor pt. and VS. Continue pts. Lopressor and Imdur. (6) HLD (hyperlipidemia) Current Visit: Yes Status: Chronic Assessment and Plan: Continue pts. Triglide, Lopid, and Lipitor. (7) GERD (gastroesophageal reflux disease) Current Visit: Yes Status: Chronic Assessment and Plan: Continue protonix (8) History of GI bleed Current Visit: Yes Status: Acute Assessment and Plan: Continue protonix. Monitor hemoglobin (9) DVT prophylaxis Current Visit: Yes Status: Acute Assessment and Plan: On heparin drip - Time Spent with Patient Total time spent is greater than 50% in coordination of care (as documented) at patient's floor/unit and/or counseling patient: Internal Medicine: Result - Labs CBC & Chem 7: 08/31/18 03:18 08/31/18 03:18 Labs: Short CBC 08/31/18 Range/Units 03:18 WBC 12.5 H (4.3-11.1) K/mcL Hgb 14.6 (12.9-16.9) g/dL Hct 43.7 (37.5-50.1) % Plt Count 225 (140-400) K/mcL Neutrophils # 9.1 H (1.6-8.9) K/mcL BMP 08/31/18 03:18 Sodium 131 L Potassium 3.6 Chloride 93 L Carbon Dioxide 29 BUN 31 H Creatinine 1.76 H Glucose 264 H Calcium 9.4 Liver Function 08/31/18 Range/Units 03:18 Total Bilirubin 0.9 (0.3-1.0) mg/dL AST 39 (13-39) Units/L ALT 20 (7-52) Units/L Alkaline Phosphatase 60 (34-104) Units/L Albumin 3.8 (3.5-5.7) g/dL - ABG Interpretation ABG results: PT/INR, D-dimer PT 11.1 Seconds (9.4-12.1) 08/28/18 10:57 Consult Discharge Plan - Plan Referrals: Bill Penn DO [Primary Care Provider] - (2) CAD (coronary artery disease) Qualifiers: Coronary Disease-Associated Artery/Lesion type: bypass graft [place] vs. transplanted heart: [place] heart Associated angina: without angina Qualified Code(s): I25.810 - Atherosclerosis of coronary artery bypass graft(s) without angina pectoris (3) DM2 (diabetes mellitus, type 2) Qualifiers: Diabetes mellitus complication status: without complication Qualified Code(s): E11.9 - Type 2 diabetes mellitus without complications (5) HTN (hypertension) Qualifiers: Hypertension type: essential hypertension Qualified Code(s): I10 - Essential (primary) hypertension (6) HLD (hyperlipidemia) Qualifiers: Hyperlipidemia type: pure hypercholesterolemia Qualified Code(s): E78.00 - Pure hypercholesterolemia, unspecified; E78.0 - Pure hypercholesterolemia (7) GERD (gastroesophageal reflux disease) Qualifiers: Esophagitis presence: esophagitis presence not specified Qualified Code(s): K21.9 - Gastro-esophageal reflux disease without esophagitis
[2018-08-31] MEDS: amLODIPine 5 MG TABLET PO SCH (07:51)
[2018-08-31] MEDS: Isosorbide MONOnitrate (24 HR) 30 MG TAB.ER.24H PO SCH (07:52)
[2018-08-31] MEDS: Fenofibrate 54 MG TABLET PO SCH (07:52)
[2018-08-31] MEDS: Insulin LISPRO 300 UNITS/3 ML VIAL SQ SCH ×4 (07:52→20:52)
[2018-08-31] MEDS: Aspirin Enteric Coated 81 MG Tablet PO SCH (07:52)
[2018-08-31] MEDS: Heparin 25,000 UNIT/500 ML D5W 25,000 UNIT/500 ML BAG IVC SCH (07:59)
--- NOTE | 2018-08-31 09:49 | Cardiology Progress Note ---
<Rafi Shepard - Last Filed: 08/31/18 13:10> Date of Encounter: 08/31/18 Time of Encounter: 09:47 Assessment and Plan (1) NSTEMI (non-ST elevated myocardial infarction) Current Visit: Yes Status: Acute No new acute problems. Severe left main and critical SVG PDA stenosis (provides LCx collaterals) with systolic CHF. CT surgery consulted and final decision on cardiac surgery versus high risk PCI of left main And SVG w EPD with Impella wi ll be determined with patient. Revascularization is prudent prior to discharge. Ordered additional H/H today and will follow tomorrow monring prior to procedure. Will optimize medical therapy prior to revascularization. Discussion w patient/family: The assessment and plan as outlined above was discussed with the patient and/or family members who expressed understanding and agreement. All questions were answered. Thank you for involving us in the care of your patient. Please call with any questions. Subjective Principal diagnosis: chest pain/nstemi Interval history: Patient reports no acute changes today and is comfortable. Denies increasing CP or SOB. Denies chest palpitations. Is aware of plan for PCI with impella support tomorrow. Objective Vital Signs, Last 4 Hours Temp Pulse Resp BP Pulse Ox 08/31/18 07:19 98.2 F 96 19 127/83 94 General: Conversant, No Apparent Distress HEENT: Atraumatic Neck: No JVD, Normal carotid pulses Cardiac: Reg Rate and Rhythm, Normal S1 and S2 Lungs: Normal Breath Sounds Neuro: Alert and responsive, No focal deficits noted Skin: No rashes noted on visualized skin Musculoskeletal: No Chest Wall Tenderness Extremities: No Clubbing, No Cyanosis, No Edema, Normal Pulses Results 08/31/18 03:18 08/31/18 03:18 Lab Results 08/31/18 08/31/18 08/31/18 03:18 03:18 03:18 WBC 12.5 H Hgb 14.6 Hct 43.7 Plt Count 225 Sodium 131 L Potassium 3.6 Chloride 93 L Carbon Dioxide 29 BUN 31 H Creatinine 1.76 H Glucose 264 H Calcium 9.4 Magnesium 1.9 Total Bilirubin 0.9 AST 39 ALT 20 Alkaline Phosphatase 60 Consult Discharge Plan - Plan Referrals: Bill Penn DO [Primary Care Provider] - <Zunilda Connelly - Last Filed: 08/31/18 16:33> Assessment and Plan Discussion w patient/family: The assessment and plan as outlined above was discussed with the patient and/or family members who expressed understanding and agreement. All questions were answered. Thank you for involving us in the care of your patient. Please call with any questions. Results 08/31/18 13:16 08/31/18 03:18 Lab Results 08/31/18 08/31/18 08/31/18 03:18 03:18 03:18 WBC 12.5 H Hgb 14.6 Hct 43.7 Plt Count 225 Sodium 131 L Potassium 3.6 Chloride 93 L Carbon Dioxide 29 BUN 31 H Creatinine 1.76 H Glucose 264 H Calcium 9.4 Magnesium 1.9 Total Bilirubin 0.9 AST 39 ALT 20 Alkaline Phosphatase 60 B-Natriuretic Peptide 08/31/18 08/31/18 13:16 13:16 WBC 11.6 H Hgb 14.4 Hct 43.8 Plt Count 248 Sodium Potassium Chloride Carbon Dioxide BUN Creatinine Glucose Calcium Magnesium Total Bilirubin AST ALT Alkaline Phosphatase B-Natriuretic Peptide 211 H - Attending Attestation Patient was seen and evaluated independently by me. Findings, assessment and plan were discussed in detail with patient, questions anwered. Agree with [facility]'s documentation. NSTEMI, severe 3-V CAD CABG 1/2 patent grafts (dLM 80%, mLAD 70%, LCx 100%, pRCA 100%; SVG-mLCx occlusion, SVG-PDA 95%), EF 45-50%, inf-lat WMA. FOBT + with stable Hb on heparin drip, CKD3. Plan CT surgery consult for CABG vs PCI LM-LAD/SVG-PDA with mechanical support c/w ASA, heparin drip
--- NOTE | 2018-08-31 10:58 | Nephrology Consult Note ---
Addendum entered and electronically signed by Chavez Pereyra MD 08/31/18 23:15: I examined this patient and discussed the medical decision-making with MANOJ Sargent. I agree with the documented findings, disposition and treatment plan as described except to the extent set forth below. Original Note: Date of Encounter: 08/31/18 Time of Encounter: 10:58 Assessment and Plan (1) CKD (chronic kidney disease) stage 3, GFR 30-59 ml/min Current Visit: Yes Status: Chronic Appears baseline is CKD 3. He is followed closely by PCP. Avoid nephrotoxins and renal dose all medications. IVF and Mucomyst ordered for [facility] tomorrow. Strict I/O (2) NSTEMI (non-ST elevated myocardial infarction) Current Visit: Yes Status: Acute Per cardio. (3) CAD (coronary artery disease) Current Visit: Yes Status: Chronic Per primary. Qualifiers: Coronary Disease-Associated Artery/Lesion type: bypass graft [place] vs. transplanted heart: [place] heart Associated angina: without angina Qualified Code(s): I25.810 - Atherosclerosis of coronary artery bypass graft(s) without angina pectoris (4) DM2 (diabetes mellitus, type 2) Current Visit: Yes Status: Chronic Per primary. Qualifiers: Diabetes mellitus complication status: without complication Qualified Code(s): E11.9 - Type 2 diabetes mellitus without complications History of Present Illness - Reason for Consult Consult date: 08/31/18 Chronic Kidney Disease - Chief Complaint chest pain - History of Present Illness Mr. Cervantes is a 72 year old male that came to ED with CP on 08/28/18. The chest pain started about a week before going to ED, but it was "off and on". EMS was called and he was transported to ED. PMH: COPD, coronary artery disease, d iabetes, hyperlipidemia, hypertension, myocardial infarction, TIA, and CKD 3. He has had a heart cath and was evaluated by a cardiothoracic surgeon and the patient declined OHS. He did agree to proceed with another [facility] and that will be on Friday. He does not see a side show entertainer, his renal function is followed closely by his PCP. He denies chronic use of NSAIDS. He lives at home with significant other. He denies tobacco history, etoh or illicit drug use. No FH of HD, unsure if FH of CKD. At this time GFR is stable and there is not an indication to do CKD workup. Would recommend following a renal protective strategy to minimize risk of ARYAN. If GFR drops significantly then a workup can be added. Will order gently IV fluid and mucomyst for LHC tomorrow. Past Med Surg Social Fam HX - Past Medical History Medical history: COPD, coronary artery disease, diabetes, hyperlipidemia, hypertension, myocardial infarction, renal disease (CKD, Stage IIIB), TIA Additional medical history: [place] 1988 Psychiatric history: no psych history - Past Surgical History Surgical History: coronary bypass (CABG) Additional surgical history: heart surgery 1995 - Social History Smoking Status: Former smoker Packs per day: 1 PPD x 40+YRS (quit 1995) Smokeless Tobacco Status: No Alcohol use: none Drug use: none - Family History Brother Race: Family Member Ethnicity: Non- Living Status: Age at : 52 Cause of : Lung cancer Hx Family Cancer: Yes (Lung, Squamous cell carcinoma) Father Race: Family Member Ethnicity: Non- Living Status: Age at : 71 Cause of : CVA Hx Family Cardiac Disorders: Yes Hx Family Respiratory Disorders: No Hx Family Cancer: No Hx Family GI Disorders: No Hx Family Genitourinary Disorders: No Hx Family Endocrine Disorder: No Hx Family Musculoskeletal Disorders: No Hx Family Neuromuscular Disorders: No Hx Family Neurologic Disorders: No (CVA) Hx Family HEENT Disorders: No Hx Family Autoimmune Disorders: No Hx Family Reproductive Disorders: No Hx Family Psychosocial Disorders: No Hx Family Medical Disorders: No Maternal Race: Family Member Ethnicity: Non- Living Status: Age at : 68 Cause of : IA, CAD Hx Family Cardiac Disorders: Yes Hx Family Respiratory Disorders: No Hx Family Cancer: No Hx Family GI Disorders: No Hx Family Genitourinary Disorders: No Hx Family Endocrine Disorder: Yes (DM) Hx Family Musculoskeletal Disorders: No Hx Family Neuromuscular Disorders: No Hx Family Neurologic Disorders: No Hx Family HEENT Disorders: No Hx Family Autoimmune Disorders: No Hx Family Reproductive Disorders: No Hx Family Psychosocial Disorders: No Medications and Allergies Aspirin [Adult Low Dose Aspirin EC] 81 mg PO DAILY 01/04/16 [History] Metoprolol [Lopressor] 50 mg PO BID 01/04/16 [History] [place]-3/Dha/Epa/Fish Oil [Fish Oil Dr 500 mg Softgel] 1,000 mg PO DAILY 01/04/16 [History] Isosorbide MONOnitrate (24 HR) [Imdur] 30 mg PO DAILY #30 tab.er.24h 01/08/16 [Rx] Atorvastatin [Lipitor] 40 mg PO HS 04/01/16 [History] Gemfibrozil [Lopid] 600 mg PO BIDWM 04/01/16 [History] Metformin HCl [Glucophage] 1,000 mg PO DAILY 04/01/16 [History] Fenofibrate Nanocrystallized [Triglide] 160 mg PO DAILY 08/28/18 [History] Pantoprazole Sodium [Protonix] 40 mg PO DAILY 08/28/18 [History] glipiZIDE [Glipizide] 10 mg PO BID 08/28/18 [History] Allergy/AdvReac Type Severity Reaction Status Date / Time No Known Allergies Allergy Verified 10/20/17 13:30 Review of Systems All Systems review (narrative): The remainder of the systems are negative. Constitutional: no chills, no fatigue, no fever(s) Cardiovascular: no chest pain, no dyspnea, no edema, no orthopnea, no palpitations Gastrointestinal: no change in bowel habits, no diarrhea, no nausea, no vomiting Genitourinary Male: no hematuria, no urinary frequency, no urinary hesitancy, no urinary incontinence Exam - Vital Signs Vital signs: Initial Vital Signs Temp Pulse Resp BP Pulse Ox 98.5 F 103 20 154/89 94 08/28/18 08:21 08/28/18 08:21 08/28/18 08:21 08/28/18 08:21 08/28/18 08:21 Vital Signs - Last 8 Hours Temp Pulse Resp BP Pulse Ox 08/31/18 07:19 98.2 F 96 19 127/83 94 08/31/18 04:00 98 F 100 15 116/78 95 Intake and Output 08/30/18 08/31/18 08/31/18 23:59 07:59 15:59 Intake Total 120 / 120 740 / 740 240 / 240 Output Total 700 / 700 Balance 120 / 120 40 / 40 240 / 240 Intake: IV Fluids 0 / 0 500 / 500 Heparin 25,000 UNIT/500 ML D5W 0 / 0 500 / 500 25,000 unit In 500 ml @ 11.4 UNIT/KG/HR 19.836 mls/hr IVC . Q24H LUKAS Rx#:[id number] Oral 120 / 120 240 / 240 240 / 240 Output: Urine 700 / 700 Other: Meal Breakfast Percent of Meal Consumed 100% Weight 90.5 kg Blood Glucose* 297 253 Patient Weight 08/31/18 23:59 Weight 90.5 kg - General Appearance General appearance: well-developed, well-nourished EENT: ATNC, hearing intact, vision intact Neck: supple Respiratory: clear Cardiology: no edema, normal S1, normal S2 Gastrointestinal: normoactive bowel sounds, no tenderness, no guarding Integumentary: no rash, warm and dry Neurologic: alert and oriented x3 Psychiatric: mood/affect appropriate, cooperative Results - Lab Results 08/31/18 03:18 08/31/18 03:18 Most recent lab results Calcium 9.4 mg/dL (8.6-10.3) 08/31/18 03:18 Phosphorus 2.3 mg/dL (2.7-4.5) L 08/31/18 03:18 Magnesium 1.9 mg/dL (1.6-2.6) 08/31/18 03:18 Consult Discharge Plan - Plan Referrals: Bill Penn DO [Primary Care Provider] -
[2018-08-31 13:40] LABS: Basophils % 0.3 %; Eosinophils # 0.1 K/mcL (0.0-0.6); Eosinophils % 0.7 %; Hematocrit 43.8 % (37.5-50.1); Hemoglobin 14.4 g/dL (12.9-16.9); Immature Granulocytes % 0.3 % (0-4); Lymphocytes # 1.8 K/mcL (0.6-4.6); Lymphocytes % 15.9 %; Mean Corpuscular HGB Conc 32.9 g/dL (31.6-35.5); Mean Corpuscular Hemoglobin 26.9 pg (28.0-33.3); Mean Corpuscular Volume 81.9 fL (83.0-100.0); Mean Platelet Volume 10.1 fL (9.4-12.4); Monocytes # 0.8 K/mcL (0.0-1.3); Monocytes % 7.2 %; Neutrophils # 8.8 K/mcL (1.6-8.9); Platelet Count 248 K/mcL (140-400); Red Blood Count 5.35 M/mcL (4.19-5.50); Red Cell Distribution Width 14.5 % (11.5-14.5); Segmented Neutrophils % 75.6 %
[2018-08-31] MEDS: Insulin DETEMIR 100 UNIT/ML X5UNITS SQ SCH (20:53)
[2018-09-01] MEDS: Heparin 25,000 UNIT/500 ML D5W 25,000 UNIT/500 ML BAG IVC SCH (02:27)
[2018-09-01 05:27] LABS: Phosphorous 3.2 mg/dL (2.7-4.5)
[2018-09-01 05:28] LABS: Albumin 3.4 g/dL (3.5-5.7); Albumin/Globulin Ratio 0.9 (1.1-2.2); Basophils # 0.1 K/mcL (0.0-0.2); Basophils % 0.6 %; Bilirubin,Total 0.7 mg/dL (0.3-1.0); Calcium 9.1 mg/dL (8.6-10.3); Eosinophils # 0.2 K/mcL (0.0-0.6); Eosinophils % 1.7 %; Globulin 3.6 g/dL (2.4-3.5); Hematocrit 40.4 % (37.5-50.1); Hemoglobin 13.2 g/dL (12.9-16.9); Immature Granulocytes % 0.5 % (0-4); Lymphocytes # 1.9 K/mcL (0.6-4.6); Lymphocytes % 21.2 %; Mean Corpuscular HGB Conc 32.7 g/dL (31.6-35.5); Mean Corpuscular Hemoglobin 26.9 pg (28.0-33.3); Mean Corpuscular Volume 82.4 fL (83.0-100.0); Mean Platelet Volume 10.5 fL (9.4-12.4); Monocytes # 0.9 K/mcL (0.0-1.3); Neutrophils # 5.9 K/mcL (1.6-8.9); Platelet Count 218 K/mcL (140-400); Potassium 3.8 mEq/L (3.5-5.1); Red Cell Distribution Width 14.4 % (11.5-14.5)
[2018-09-01] MEDS: Insulin LISPRO 300 UNITS/3 ML VIAL SQ SCH ×4 (07:54→20:08)
[2018-09-01] MEDS: Fenofibrate 54 MG TABLET PO SCH (08:03)
[2018-09-01] MEDS: Aspirin Enteric Coated 81 MG Tablet PO SCH (08:03)
[2018-09-01] MEDS: amLODIPine 5 MG TABLET PO SCH (08:03)
[2018-09-01] MEDS: Isosorbide MONOnitrate (24 HR) 30 MG TAB.ER.24H PO SCH (08:03)
[2018-09-01] MEDS ORDERED: D5% in 0.9% NACL 1,000 ML IVC SCH (09:00)
[2018-09-01] MEDS ORDERED: 0.9 % Sodium Chloride 1,000 ML IVC SCH (09:00)
--- NOTE | 2018-09-01 09:06 | Internal Med Progress Note ---
Hospitalist Progress Note - Encounter Date of Encounter: 09/01/18 Time of Encounter: 09:03 - Subjective Interval History: Patient seen and evaluated at bedside. He reports he is feeling well, denies chest pain, shortness of breath, nausea or vomiting over the past 24-48 hours. Denies blood in his urine, reports not having a BM in the past 24 hours. - Exam Vitals: Temp Pulse Resp BP Pulse Ox 98.1 F 91 16 116/76 96 09/01/18 07:05 09/01/18 07:05 09/01/18 07:05 09/01/18 07:05 09/01/18 07:05 Exam: General: Alert, oriented x4. No distress. Eyes: anicteric sclerae, moist conjunctivae, PERRLA HENT: Atraumatic, moist mucous membranes and no mucosal ulcerations; Lungs: CTA b/l, with normal respiratory effort and no intercostal retractions CV: RRR, normal s1s2, no MRGs. Abdomen: Soft, non-tender, or distended, normo active bowel sounds in all 4 quadrant. Extremities: No peripheral edema. strength is 5/5 in the upper and lower ext. Neuro: CN II-XII intact. Skin: no rash, Psych: Appropriate affect - Assessment and Plan (1) NSTEMI (non-ST elevated myocardial infarction) Current Visit: Yes Status: Acute Assessment and Plan: No chest pain. Plan telemetry monitoring patient scheduled for revasculatization today plan of care as per cardiology continue atorvastatin 40mg/PO daily On Aspirin 81mg/PO daily on a bb Continue on a Heparin drip No plavix as patient is scheduled for PCI. (2) CAD (coronary artery disease) Current Visit: Yes Status: Chronic Assessment and Plan: plan of care as above. (3) DM2 (diabetes mellitus, type 2) Current Visit: Yes Status: Chronic Assessment and Plan: Patient is NPO for cardiac intervention. Accu-checks Q6HR plus lispro sliding scale. (4) CKD (chronic kidney disease) stage 3, GFR 30-59 ml/min Current Visit: Yes Status: Chronic Assessment and Plan: Slight increase in creatinine from baseline. possible due to contrast post LHC Started on Gentle IV hydration with D55/NS @75mls/hr On acetylcysteine 600mg/PO BID as per nephrology recommendations (5) HTN (hypertension) Current Visit: Yes Status: Chronic Assessment and Plan: BP well controlled. Patient on Isosorbide, metoprolol and amlodipine (6) HLD (hyperlipidemia) Current Visit: Yes Status: Chronic Assessment and Plan: On atorvastatin plus fenofibrate. (7) GERD (gastroesophageal reflux disease) Current Visit: Yes Status: Chronic Assessment and Plan: Continue PPI (8) History of GI bleed Current Visit: Yes Status: Chronic Assessment and Plan: H&H stable. Possible FOBT but not active signs of bleeding. Will continue to monitor. (9) Congestive heart failure (CHF) Current Visit: Yes Status: Acute Assessment and Plan: Patient no on acute exacerbation. E.F 45%. Plan On isosorbide. continue metoprolol No Jen/ARBS due to SINCERE/CKD Strcit intake and out DVT Prophylaxis: Patient on a Heparin drip due to NSTEMI. - Summary of Assessment and Plan Summary of Assessment and Plan: Patient scheduled for cardia revascularization. - Time Spent with Patient Total time spent is greater than 50% in coordination of care (as documented) at patient's floor/unit and/or counseling patient: 25 - 35 minutes Plan of Care Discussed with: patient (family and the nurse.) Internal Medicine: Result - Labs CBC & Chem 7: 09/01/18 04:19 09/01/18 04:19 Labs: Short CBC 08/31/18 09/01/18 Range/Units 13:16 04:19 WBC 11.6 H 8.9 (4.3-11.1) K/mcL Hgb 14.4 13.2 (12.9-16.9) g/dL Hct 43.8 40.4 (37.5-50.1) % Plt Count 248 218 (140-400) K/mcL Neutrophils # 8.8 5.9 (1.6-8.9) K/mcL BMP 09/01/18 04:19 Sodium 133 L Potassium 3.8 Chloride 95 L Carbon Dioxide 29 BUN 32 H Creatinine 1.72 H Glucose 316 H Calcium 9.1 Liver Function 09/01/18 Range/Units 04:19 Total Bilirubin 0.7 (0.3-1.0) mg/dL AST 21 (13-39) Units/L ALT 15 (7-52) Units/L Alkaline Phosphatase 53 (34-104) Units/L Albumin 3.4 L (3.5-5.7) g/dL - ABG Interpretation ABG results: PT/INR, D-dimer PT 11.1 Seconds (9.4-12.1) 08/28/18 10:57 Consult Discharge Plan - Plan Referrals: Bill Penn DO [Primary Care Provider] - (2) CAD (coronary artery disease) Qualifiers: Coronary Disease-Associated Artery/Lesion type: bypass graft [place] vs. transplanted heart: [place] heart Associated angina: without angina Qualified Code(s): I25.810 - Atherosclerosis of coronary artery bypass graft(s) without angina pectoris (3) DM2 (diabetes mellitus, type 2) Qualifiers: Diabetes mellitus complication status: without complication Qualified Code(s): E11.9 - Type 2 diabetes mellitus without complications (5) HTN (hypertension) Qualifiers: Hypertension type: essential hypertension Qualified Code(s): I10 - Essential (primary) hypertension (6) HLD (hyperlipidemia) Qualifiers: Hyperlipidemia type: pure hypercholesterolemia Qualified Code(s): E78.00 - Pure hypercholesterolemia, unspecified; E78.0 - Pure hypercholesterolemia (7) GERD (gastroesophageal reflux disease) Qualifiers: Esophagitis presence: esophagitis presence not specified Qualified Code(s): K21.9 - Gastro-esophageal reflux disease without esophagitis (9) Congestive heart failure (CHF) Qualifiers: Heart failure type: systolic Heart failure chronicity: chronic Qualified Code(s): I50.22 - Chronic systolic (congestive) heart failure
--- NOTE | 2018-09-01 10:37 | Nephrology Progress Note ---
Date of Encounter: 09/01/18 Time of Encounter: 10:35 - Assessment and Plan (1) CKD (chronic kidney disease) stage 3, GFR 30-59 ml/min Current Visit: Yes Status: Chronic Appears baseline is CKD 3. He is followed closely by PCP. Avoid nephrotoxins and renal dose all medications. IVF and Mucomyst ordered for [facility] today. Strict I/O (2) NSTEMI (non-ST elevated myocardial infarction) Current Visit: Yes Status: Acute Per cardio. (3) CAD (coronary artery disease) Current Visit: Yes Status: Chronic Per primary. Qualifiers: Coronary Disease-Associated Artery/Lesion type: bypass graft [place] vs. transplanted heart: [place] heart Associated angina: without angina Qualified Code(s): I25.810 - Atherosclerosis of coronary artery bypass graft(s) without angina pectoris (4) DM2 (diabetes mellitus, type 2) Current Visit: Yes Status: Chronic Per primary. Qualifiers: Diabetes mellitus complication status: without complication Qualified Code(s): E11.9 - Type 2 diabetes mellitus without complications Subjective Principal diagnosis: chest pain/nstemi Interval history: Pt seen and examined, doing well. Denies CP or shortness of breath. Dr. Connelly at bedside, confirms [facility] is today at 1430. Objective - Vital Signs Vital signs: Vital Signs Temp Pulse Resp BP Pulse Ox 09/01/18 07:05 98.1 F 91 16 116/76 96 09/01/18 04:31 90 16 118/79 98 08/31/18 20:51 98.0 F 92 16 124/78 96 08/31/18 16:19 97.5 F L 96 18 118/73 97 Intake and Output 08/31/18 09/01/18 09/01/18 23:59 07:59 15:59 Intake Total 120 / 120 500 / 500 Output Total 850 / 850 400 / 400 Balance -730 / -730 100 / 100 Intake: IV Fluids 500 / 500 Heparin 25,000 UNIT/500 ML D5W 500 / 500 25,000 unit In 500 ml @ 11.4 UNIT/KG/HR 19.836 mls/hr IVC . Q24H [facility] Rx#:[id number] Oral 120 / 120 Output: Urine 850 / 850 400 / 400 Other: Meal Dinner NPO Percent of Meal Consumed 80% Weight 90 kg Blood Glucose* 424 283 Patient Weight 09/01/18 23:59 Weight 90 kg - General Appearance General appearance: Present: well-developed, well-nourished EENT: Present: ATNC, hearing intact, vision intact Neck: Present: supple Respiratory: Present: clear Cardiology: Present: no edema, normal S1, normal S2 Gastrointestinal: Present: normoactive bowel sounds, no tenderness, no guarding Integumentary: Present: no rash, warm and dry Neurologic: Present: alert and oriented x3 Psychiatric: Present: mood/affect appropriate, cooperative - Lab 09/01/18 04:19 09/01/18 04:19 Most recent lab results Calcium 9.1 mg/dL (8.6-10.3) 09/01/18 04:19 Phosphorus 3.2 mg/dL (2.7-4.5) 09/01/18 04:19 Magnesium 2.0 mg/dL (1.6-2.6) 09/01/18 04:19 Consult Discharge Plan - Plan Referrals: Bill Penn DO [Primary Care Provider] -
[2018-09-01] MEDS: 0.9 % Sodium Chloride 1,000 ML IVC SCH (11:00)
[2018-09-01] MEDS: *HR* Acetylcysteine 20% 600 MG/3 ML ORAL SYRINGE PO SCH ×2 (11:00→21:26)
--- NOTE | 2018-09-01 11:15 | Event Note ---
Date of Encounter: 09/01/18 Time of Encounter: 11:07 - Cardiology Event Note Pt has no compliant, on heparin drip, Hb 13, Cr s 1.72 from 1.76 Discussed with pt and family again regarding 2nd opinion regarding re-do CABG at either [facility] or [facility]. Pt adamantly declined the option for surgery and stated he's made up his mind and wanted the PCI. Discussed with Waylon Oshea and Tal, and the plan is to perform PCI with Impella LV support in the afternoon. Pt and family updated.
[2018-09-01] MEDS ORDERED: ISOVUE-370 200 ML INFUS..BTL ONE ×3 (13:33→18:00)
[2018-09-01] MEDS ORDERED: 0.9 % Sodium Chloride 1,000 ML ONE ×2 (13:33→15:20)
[2018-09-01] MEDS ORDERED: *HR* Heparin 10,000 UNIT/10 ML VIAL ONE ×2 (13:33→16:30)
[2018-09-01] MEDS ORDERED: Heparin 1,000 UNITS/500 mL 500 ML ONE ×2 (13:33→16:10)
--- NOTE | 2018-09-01 13:33 | Pre-Sedation Evaluation ---
Pre-sedation evaluation - Pre-sedation checklist Date of procedure: 09/01/18 Procedure: High risk multivessel PCI with Impella pLVAD support Recent Vitals: Last Vital Signs Temp 98.3 F 09/01/18 11:43 Pulse 98 09/01/18 11:43 Resp 18 09/01/18 11:43 BP 107/72 09/01/18 11:43 Pulse Ox 95 09/01/18 11:43 H&P (including ROS) documented in medical record: Yes Previous reaction to sedatives/anesthetics: No Dietary Status: NPO after Midnight Dentition: dentures removed ASA Classification *see protocol: CLASS IV-Severe systemic disease/constant threat to pt's life Plan of Care: Pt appropriate candidate for procedure/moderate/conscious sedation, Risks/benefits of procedure/sedation discussed w/ patient/family Cardiac Registry (Cardio Only) - Functional Capacity Functional Capacity: >=4 METS with symptoms - Clincal Frailty Scale Clinical Frailty Scale: Vulnerable (Patient aware of increased risk of CVA/MS//bleeding/CKD3 with high risk PCI with Impella. Impella pLVAD utilized as EF mildly reduced with high risk intervention on severely diseased SVG PDA and left main with occluded circumflex.)
[2018-09-01] MEDS ORDERED: Nitroglycerin 1,000 MCG/10 ML VIAL IV ONE (13:34)
--- NOTE | 2018-09-01 13:37 | Event Note ---
Date of Encounter: 09/01/18 Time of Encounter: 13:30 - Cardiology Event Note 72yo male with CAD sp 2vsl CABG sp NSTEMI sp LHC by Dr. Chou 08/28 and findings of EF mildly reduced (by TTE) and critical SVG PDA stenosis that supplies collaterals to LCx distribution with PDA thrombus, culprit for OH and severe diffuse left main disease with LAD disease, CKD 3. CT surgery was consulted for redo CABG. He was declined for surgery and patient declined CABG as well, opting for multivessel PCI. I will be overseeing insertion of Impella support for high risk PCI by Dr. Chou. Patient understands increased risk of /CVA/bleeding/[place]/emergency CABG.
[2018-09-01] MEDS ORDERED: Tirofiban 12.5 MG/250ML 12.5 MG/250 ML BAG ONE (13:48)
[2018-09-01] MEDS ORDERED: D5% in Water 250 ML ONE (13:52)
[2018-09-01] MEDS ORDERED: *HR* FentaNYL (PF) 100 MCG/2 ML VIAL ONE (14:49)
[2018-09-01] MEDS ORDERED: *HR* Midazolam HCl 2 MG/2 ML VIAL ONE (14:50)
--- NOTE | 2018-09-01 15:02 | Event Note ---
Date of Encounter: 09/01/18 Time of Encounter: 15:00 - Cardiology Event Note 72 YOM with hx MCRFs here for LHC and PCI under impella support. Patient understands high risk of procedure with risks of CVA, DC, ARF and vascular complications and is okay to proceed. He also has changed his wishes in regards to code status and wishes to be full code
[2018-09-01] MEDS ORDERED: *HR* Nitroprusside 50 MG VIAL IVC ONE (15:05)
[2018-09-01] MEDS ORDERED: D5% in Water 100 ML ONE (15:09)
[2018-09-01] MEDS ORDERED: *HR* Ticagrelor 90 MG TABLET ONE (18:00)
[2018-09-01] MEDS ORDERED: Tirofiban 12.5 MG/250ML 12.5 MG/250 ML BAG IVC SCH (18:15)
--- NOTE | 2018-09-01 18:28 | Invasive Diagnostic Lab Proc ---
Name: Jesús Cervantes Date of Study: 09/01/2018 Date: 1945 Ht: 68.1in Medical Record#: [id number] Age: 72 Wt: 198.42lb Gender: Male BSA: 2.04 Order #: [id number] BMI: 30.07 Physicians Procedure Physician: Musa Hernandez MD Referring MD: Referring MD: Staff Name Position Time In Kristin Damon RT Scrub 02:43 PM Veronica Avina RN Monitor 02:43 PM Boyd Lerma RN Client Support Professional 02:43 PM Sharmila Siu RN Client Support Professional 02:43 PM Maura Montez RT (R) Scrub 02:44 PM Michael Oshea MD 02:44 PM Indications Indication Non-Stemi Procedures Performed Procedure Insert VAD artery access PRQ CARD PHUONG STENT W/ANGIO 1 VSL PRQ REVASC BYP GRAFT 1 VSL Pre-Procedure Checklist Informed consent is complete signed and on chart. H&P is on chart. ID band is on and ID verified with patient. Patient NPO for procedure The procedure was described for the patient and questions were answered. Blood Pressure: 116/76 ECG is on chart. Rhythm: NSR Plan of Care Patient will tolerate the procedure without complications. Adequate level of comfort will be maintained. Hemodynamics will remain stable Patient will recover from procedure without complications. Respiratory function will be maintained. Cardiac rhythm will remain stable. Patient temperature will be maintained. Patient and/or family have verbalized understanding of the procedure. Patient Education Intravenous Access Time IV Size Location DC'd Fluid/Drip Rate Units RN 02:40 PM 20g 1 1/4" Patent On Arrival Lt Arm 0.9NaCl 25 ml/hr 02:40 PM Started with 18g needle 1 1/4" Lt Antecubital 0.9NaCl 25 ml/hr Sharmila Siu RN Allergies No Known Allergies Vital Signs Time BP (mmHg) HR (bpm) O2 Sat. RR (bpm) LOC 02:45 PM / % 5 = Fully awake and oriented or at pre-proc level 02:45 PM / % 4 = Oriented but drowsy 05:56 PM / % 4 = Oriented but drowsy 03:05 PM 114 / 76 91 92 % 17 03:11 PM 112 / 74 89 92 % 20 03:15 PM 115 / 79 93 94 % 28 03:21 PM 111 / 75 89 93 % 15 03:26 PM 104 / 76 91 96 % 13 03:30 PM 112 / 79 90 95 % 15 03:35 PM 118 / 86 93 96 % 15 03:41 PM 114 / 87 91 94 % 16 03:46 PM 112 / 85 88 95 % 15 03:51 PM 119 / 89 93 94 % 16 04:46 PM 136 / 100 93 98 % 16 04:51 PM 137 / 99 91 97 % 16 04:56 PM 135 / 106 94 96 % 17 05:01 PM 143 / 106 93 96 % 18 05:06 PM 140 / 101 94 96 % 19 05:11 PM 139 / 105 92 95 % 18 05:16 PM 140 / 96 94 95 % 16 05:21 PM 142 / 105 94 95 % 19 05:26 PM 141 / 111 95 95 % 17 05:31 PM 131 / 99 97 94 % 19 02:51 PM 133 / 81 93 94 % 10 02:56 PM 126 / 81 98 93 % 18 03:01 PM 106 / 70 96 87 % 16 03:56 PM 118 / 89 89 96 % 16 04:01 PM 122 / 88 93 94 % 15 04:06 PM 113 / 81 95 95 % 17 04:11 PM 127 / 92 93 94 % 16 04:16 PM 127 / 93 90 98 % 17 04:21 PM 124 / 95 91 98 % 16 04:26 PM 128 / 97 91 98 % 17 04:31 PM 131 / 102 93 98 % 18 04:36 PM 133 / 100 92 99 % 16 04:41 PM 138 / 106 93 99 % 18 05:36 PM 125 / 96 100 95 % 18 05:41 PM 125 / 88 96 94 % 20 05:46 PM 140 / 95 96 90 % 16 05:51 PM 146 / 102 93 93 % 20 05:55 PM 141 / 94 93 96 % 21 05:56 PM 140 / 82 93 96 % 20 06:01 PM 148 / 103 95 93 % Procedural Medications Time Medication Dose Units Method Given By 02:45 PM Oxygen 2 L/min nasal cannula Sharmila Siu RN 03:00 PM Versed 2 mg Intravenous Sharmila Siu RN 03:00 PM Fentanyl 50 mcg Intravenous Sharmila Siu RN 03:09 PM Lidocaine 2% 15 ml Subcutaneous MoussYisel shepard MD 03:11 PM Oxygen 4 L/min nasal cannula Sharmila Siu RN 03:15 PM Lidocaine 2% 10 ml Subcutaneous Moussa, Terek MD 03:20 PM Heparin 4500 units Intravenous Sharmila iSu RN 03:21 PM Versed 0.5 mg Intravenous Sharmila Siu RN 03:21 PM Fentanyl 25 mcg Intravenous Sharmila Sui RN 03:31 PM Heparin 1000 units Intravenous Sharmila Siu RN 03:41 PM Heparin 500 units Intravenous Sharmila Siu RN 03:41 PM Aggrastat Bolus: 46 ml Intravenous Sharmila Siu RN 03:43 PM Aggrastat 12.5mg/250ml 8.25 ml Intravenous Sharmila Siu RN 04:07 PM Nitroglycerin 50 mcg Intracoronary Yisel Hernandez MD 04:25 PM Heparin 1000 units Intravenous Sharmila Siu RN 05:30 PM Nipride 50 mcg Intracoronary Yisel Hernandez MD 05:05 PM Heparin 1000 units Intravenous Sharmila Siu RN 05:39 PM Nipride 100 mcg Intracoronary Yisel Hernandez MD 05:41 PM Nipride 100 mcg Intracoronary Yisel Hernandez MD 05:47 PM Heparin 2000 units Intravenous Sharmila Siu RN 06:05 PM Brilinta 180 mg Orally Sharmila Siu RN ASA Classification: CLASS III- Severe systemic disease (i.e. prior AMI, diabetes with vascular complications, morbid obesity) Rosa Maria Score Preprocedure Postprocedure Activity 2- Moves 4 extremities sustained head lift Activity 2- Moves 4 extremities sustained head lift Circulation 2- SBP +/= 20 points of pre-anesthetic level Circulation 2- SBP +/= 20 points of pre-anesthetic level Consciousness 2- Awake and alert oriented x 3 Consciousness 2- Awake and alert oriented x 3 O2 Saturation 2- Able to maintain O2 satruation of 92% on room air O2 Saturation 2- Able to maintain O2 satruation of 92% on room air Respiratory 2- Able to deep breathe and cough well Respiratory 2- Able to deep breathe and cough well Total Score 10 Total Score 10 Contrast Agent: Isovue Diagnostic Contrast: 343 ml Total Contrast: 343 ml Fluoro Dose: 86615 mGy Activated Clotting Time Time Seconds to Clot 03:31 PM 218 03:44 PM 219 03:46 PM 250 04:25 PM 207 Procedure Log Time Note Enter By 02:43 PM Pt arrived to research laboratory technician 2 at 14:43 [email or web address] 02:43 PM Kristin Damon RT Position: Scrub Time in: : 02:43 PM Veronica Avina RN Position: Monitor Time in: ::43 PM Boyd Lerma RN Position: Client Support Professional Time in: :ner 02:43 PM Sharmila Siu RN Position: Client Support Professional Time in: :ner :44 PM Mauar Montez RT (R) Position: Scrub Time in: ner :44 PM Patient charges- Angio tray pack, Navilyst 3mm J, Pulse Oximetry and ACIST tubing and transducer :44 PM Case Delayed No :44 PM Physician arrived :: PM Michael Oshea MD Position: Time in: 44 PM Meet and greet completed :44 PM Sign in performed according to hospital policy. Informed consent was obtained. :44 PM Procedure start :44 :45 PM Time: 14:45 Oxygen on at 2 L/min per nasal cannula by Sharmila Siu RN :45 PM Time: 14:45 Patient comfortable and pain free: Yes :45 PM Time: 14:45LOC: 5 = Fully awake and oriented or at pre-proc level 02:45 PM Clinical Presentation: Unstable angina kkall 02:45 PM pt notified of high risk procedure . pt agreed to proceed DNRCC will be void for cath procedure 02:46 PM Recorded ECG: PX=374 Condition=Condition 1 02:46 PM CathStat 02:47 PM Vitals capture started with the following parameters, Patient=Adult, Interval=5 min, Initial Fwrryqvt=674 mmHg, Deflation Rate=5 mmHg, Cuff placed on Right Arm 02:50 PM defib pads placed kkallner 02:50 PM Vitals capture started with the following parameters, Patient=Adult, Interval=5 min, Initial Qhmbnbmk=054 mmHg, Deflation Rate=5 mmHg, Cuff placed on Right Arm 02:51 PM HR=93 bpm, FIFS=957/81 mmhg, SpO2=94.0 %, Resp=10 B/min 02:56 PM HR=98 bpm, WTRC=515/81 mmhg, SpO2=93.0 %, Resp=18 B/min, Comment=bbb 03:00 PM Time: 15:07 Versed 1 mg Intravenous Given by Sharmila Siu RN omero 03:00 PM Time: 15:08 Fentanyl 50 mcg Intravenous Given by Sharmila Siu RN kkomero 03:01 PM HR=96 bpm, QVST=598/70 mmhg, SpO2=87.0 %, Resp=16 B/min, Comment=bbb 03:05 PM HR=91 bpm, ZZDE=242/76 mmhg, SpO2=92.0 %, Resp=17 B/min, EtCO2=32 mmHg, Comment=bbb 03:08 PM Clinical Presentation: Non-STEMI kkallner 03:09 PM Time out was performed according to hospital policy. Conscious sedation and anesthesia was achieved (see medication log with in this report above) kkallner 03:09 PM Time: 15:09 15 ml Lidocaine 2% to right groin Subcutaneous Given by Musa Hernandez MD 03:11 PM HR=89 bpm, CNMF=650/74 mmhg, SpO2=92.0 %, Resp=20 B/min, EtCO2=32 mmHg, Comment=bbb 03:11 PM Micro-Introducer Kit utilized for sheath placement kkallner 03:11 PM Time: 15:11 Oxygen on at 4 L/min per nasal cannula by Sharmila Siu RN omero 03:12 PM Access obtained by percutaneous puncture. 6Fr 11cm Terumo Glidesheath sheath placed in right Femoral artery. [id number] allner 03:13 PM Recorded ECG: HR=91 Condition=Condition 1 03:14 PM Pressure channel 1 zero failed. 03:14 PM Pressure channel 1 zeroed. 03:15 PM Time: 15:15 10 ml Lidocaine 2% to left groin Subcutaneous Given by Musa Hernandez MD 03:15 PM Micro-Introducer Kit utilized for sheath placement [email or web address] 03:15 PM Bolus angiogram of left Femoral complete: hand injected total of 4 mls kkallner 03:15 PM HR=93 bpm, SRIL=622/79 mmhg, SpO2=94.0 %, Resp=28 B/min, Comment=bbb 03:16 PM access obtained, dialating artery up a 14F for impella sheath in left groin kkallner 03:18 PM An injection of 4 ml. of Isovue 370- 200ml was used for angiography of the left groin in the AP projection 03:20 PM Access obtained by percutaneous puncture. 14Fr 25cm Abiomed sheath placed in left femoral artery. [id number] 03:20 PM Time: 15:20 Heparin 4500 units Intravenous Given by Sharmila Siu RN omero 03:21 PM HR=89 bpm, JQXG=154/75 mmhg, SpO2=93.0 %, Resp=15 B/min, EtCO2=29 mmHg, Comment=bbb 03:21 PM Time: 15:21 Versed 0.5 mg Intravenous Given by Sharmila Siu RN omero :21 PM Time: 15:21 Fentanyl 25 mcg Intravenous Given by Sharmila Siu RN ner 03:22 PM Recorded Pressure: Ao, HR=90, Condition=Condition 1 (Aorta) Ao 117/64/83 03:23 PM 5Fr Pigtail catheter inserted over the wire [facility] 03:23 PM .018 Jwire 260cm guide wire inserted through catheter. 03:26 PM HR=91 bpm, ICXH=465/76 mmhg, SpO2=96.0 %, Resp=13 B/min, EtCO2=35 mmHg, Comment=bbb 03:26 PM Wire removed 03:26 PM Recorded Pressure: LV, HR=91, Condition=Condition 1 (Left Ventricle) LV 102/12/17 03:29 PM Pigtail catheter removed intact 03:30 PM HR=90 bpm, TMPK=618/79 mmhg, SpO2=95.0 %, Resp=15 B/min, EtCO2=30 mmHg, Comment=bbb 03:31 PM At 15:31 the ACT was 218 seconds. 03:31 PM Time: 15:31 Heparin 1000 units Intravenous Given by Sharmila Siu RN 03:31 PM Impella Catheter inserted over .018 wire. [id number]. *ACC* catheter inserted 11 03:32 PM Impella catheter inserted accrossed valve and position in left ventricle. .018 wire removed. Catheter attached to pump. 03:34 PM Impella Pump started in auto. 03:34 PM Perfusion in lab to assist with Impella device. Adrien kkallner 03:35 PM HR=93 bpm, XCXS=757/86 mmhg, SpO2=96.0 %, Resp=15 B/min, EtCO2=32 mmHg, Comment=bbb 03:37 PM 6Fr EBU 3.5 Medtronic guide catheter was used to cannulate the PCI vessel successfully. reused? No kkallner 03:39 PM 0.035 260cm Navilyst 3mmJ wire [id number] kkallner 03:39 PM Guide catheter removed intact. kkallner 03:39 PM 6Fr EBU 3.0 Medtronic guide catheter was used to cannulate the PCI vessel successfully. reused? No kkallner 03:41 PM HR=91 bpm, NMLX=283/87 mmhg, SpO2=94.0 %, Resp=16 B/min, Comment=bbb 03:41 PM Time: 15:41 Heparin 500 units Intravenous Given by Sharmila Siu RN kkallner 03:42 PM At 15:44 the ACT was 219 seconds. [email or web address] 03:43 PM Time: 15:41 Aggrastat Bolus: 46 ml Intravenous Given by Sharmila Siu RN Hammer pump kkallner 03:43 PM Time: 15:43 Aggrastat 12.5mg/250ml 8.25 ml Intravenous Given by Sharmila Siu RN Hammer pump kkallner 03:43 PM .014 [employer] [place] 190cm guide wire across target lesion- successful. reused? No kkallner 03:45 PM 2.0 mm x 20 mm Emerge Monorail balloon across target lesion- successful. reused? No kkallner 03:[address] Hernandez. stated that he was good at this point. left case at this time kkallner 03:46 PM HR=88 bpm, HONM=408/85 mmhg, SpO2=95.0 %, Resp=15 B/min 03:46 PM At 15:46 the ACT was 250 seconds. [email or web address] 03:47 PM Lesion found in Distal LMCA. Pre Stenosis: 80 Pre MAEGAN Flow: 3: Complete and Brisk Flow/Perfusion kkallner 03:49 PM Balloon inflated @ 6 shanita for 7 seconds kkallner 03:49 PM Recorded Pressure: Ao, HR=92, Condition=Condition 1 (Aorta) Ao 97/74/85 03:49 PM Balloon catheter removed intact. [email or web address] 03:50 PM Lesion found in Distal RCA. Pre Stenosis: 100 Pre MAEGAN Flow: 0 kkallner 03:51 PM HR=93 bpm, OKMU=029/89 mmhg, SpO2=94.0 %, Resp=16 B/min, Comment=bbb 03:54 PM 3.5mm x 16mm Promus Premier Rx drug-eluting stent across target lesion- successful Lot #[id number] kkallner 03:54 PM promus stent removed intact, not deployed kkallner 03:55 PM 2.5 mm x 12 mm Emerge Monorail balloon across target lesion- successful. reused? No kkallner 03:56 PM HR=89 bpm, QERX=113/89 mmhg, SpO2=96.0 %, Resp=16 B/min, Comment=bbb 03:56 PM Balloon inflated @ 6 shanita for 7 seconds kkallner 03:56 PM Balloon inflated @ 8 shanita for 5 seconds kkallner 03:57 PM Recorded Pressure: Ao, HR=95, Condition=Condition 1 (Aorta) Ao 85/69/77 03:58 PM 3.5mm x 12mm Synergy drug-eluting stent across target lesion- successful Lot #[id number] kkallner 03:59 PM stent removed intact, not deployed kkallner 04:00 PM 3.0 mm x 15 mm Emerge Monorail balloon across target lesion- successful. reused? No kkallner 04:00 PM Recorded Pressure: Ao, HR=91, Condition=Condition 1 (Aorta) Ao 107/76/91 04:01 PM HR=93 bpm, FKSK=006/88 mmhg, SpO2=94.0 %, Resp=15 B/min, Comment=bbb 04:01 PM Balloon inflated @ 10 shanita for 9 seconds [email or web address] 04:02 PM Balloon inflated @ 14 shanita for 7 seconds kkallner 04:02 PM Balloon catheter removed intact. kkallner 04:03 PM 3.5x12 synergy reinserted kkallner 04:06 PM Stent deployed @ 9 shanita for 7 seconds kkallner 04:06 PM HR=95 bpm, UIJL=477/81 mmhg, SpO2=95.0 %, Resp=17 B/min 04:06 PM Stent balloon reinflated @ 14 shanita for 6 seconds [email or web address] 04:06 PM Stent delivery system removed intact. kkner 04:08 PM Time: 16:07 Nitroglycerin 50 mcg Intracoronary Given by Yisel Hernandez MD kkner 04:11 PM HR=93 bpm, ZKLK=244/92 mmhg, SpO2=94.0 %, Resp=16 B/min 04:11 PM 3.5 mm x 12mm NC Emerge balloon across target lesion- successful. reused? No kkner 04:12 PM Balloon inflated @ 8 shanita for 6 seconds [email or web address] 04:13 PM Recorded Pressure: Ao, HR=93, Condition=Condition 1 (Aorta) Ao 94/76/86 04:13 PM Balloon inflated @ 16 shanita for 8 seconds kkner 04:14 PM Guide wire removed intact. kkner 04:14 PM long j reinserted kk 04:15 PM 6Fr JR 4 Cordis guide catheter was used to cannulate the PCI vessel successfully. reused? No kkner 04:16 PM HR=90 bpm, QIRV=750/93 mmhg, SpO2=98.0 %, Resp=17 B/min, Comment=bbb 04:19 PM wire reinserted catheter removed kkner 04:20 PM 6Fr MPA Runway guide catheter was used to cannulate the PCI vessel successfully. reused? No kkner 04:21 PM HR=91 bpm, GLXY=125/95 mmhg, SpO2=98.0 %, Resp=16 B/min, Comment=bbb 04:25 PM At 16:25 the ACT was 207 seconds. 04:25 PM Time: 16:25 Heparin 1000 units Intravenous Given by Sharmila Siu RN 04:26 PM HR=91 bpm, TVDE=486/97 mmhg, SpO2=98.0 %, Resp=17 B/min, Comment=bbb 04:28 PM wire reinserted catheter removed kkner 04:28 PM 6Fr Rcb Runway guide catheter was used to cannulate the PCI vessel successfully. reused? No kkner 04:30 PM .014 [employer] [place] 180cm guide wire across target lesion- successful. reused? No kkner 04:31 PM HR=93 bpm, KPJX=030/102 mmhg, SpO2=98.0 %, Resp=18 B/min, Comment=bbb 04:[address] hernandez notified of contrast amount given kkallner 04:36 PM HR=92 bpm, DOVW=784/100 mmhg, SpO2=99.0 %, Resp=16 B/min, EtCO2=35 mmHg, Comment=bbb 04:37 PM wire reinserted catheter removed kkallner 04:38 PM 6Fr HS SH Runway guide catheter was used to cannulate the PCI vessel successfully. reused? No kkallner 04:38 PM .014 [employer] 50 cm guide wire across target lesion- successful. reused? No kkallner 04:41 PM HR=93 bpm, AWOU=299/106 mmhg, SpO2=99.0 %, Resp=18 B/min, Comment=bbb 04:44 PM Guide wire removed intact. kkallner 04:45 PM Recorded Pressure: Ao, HR=94, Condition=Condition 1 (Aorta) Ao 122/93/106 04:46 PM HR=93 bpm, XYKS=839/100 mmhg, SpO2=98.0 %, Resp=16 B/min, Comment=bbb 04:48 PM bmw reinserted kkallner 04:49 PM .014 Wh[employer] 190cm guide wire across target lesion- successful. reused? No kkallner 04:50 PM Recorded Pressure: Ao, HR=94, Condition=Condition 1 (Aorta) Ao 109/68/88 04:51 PM HR=91 bpm, ZPCU=777/99 mmhg, SpO2=97.0 %, Resp=16 B/min, Comment=bbb 04:54 PM whisper removed for reshaping kkallner 04:54 PM whisper reinserted kkallner 04:56 PM HR=94 bpm, TDIE=475/106 mmhg, SpO2=96.0 %, Resp=17 B/min, Comment=bbb 05:01 PM HR=93 bpm, PZGF=541/106 mmhg, SpO2=96.0 %, Resp=18 B/min, Comment=bbb 05:03 PM super cross mirco catheter inserted kkner 05:05 PM Time: 17:05 Heparin 1000 units Intravenous Given by Sharmila Siu RN kkallner 05:06 PM HR=94 bpm, MBDF=661/101 mmhg, SpO2=96.0 %, Resp=19 B/min, Comment=bbb 05:11 PM whisper wire removed kkallner 05:11 PM HR=92 bpm, YZCP=250/105 mmhg, SpO2=95.0 %, Resp=18 B/min, Comment=bbb 05:11 PM reshaping wire kkallner 05:13 PM Guide wire removed intact. (whisper) kkallner 05:14 PM .014 [employer] [place] 300cm guide wire across target lesion- successful. reused? No kkallner 05:15 PM Recorded Pressure: Ao, HR=94, Condition=Condition 1 (Aorta) Ao 115/88/101 05:16 PM HR=94 bpm, SGJD=222/96 mmhg, SpO2=95.0 %, Resp=16 B/min, Comment=bbb 05:21 PM HR=94 bpm, ROTE=682/105 mmhg, SpO2=95.0 %, Resp=19 B/min, Comment=bbb 05:21 PM Guide wire removed intact. kkallner 05:25 PM .014 [employer] 300cm guide wire across target lesion- successful. reused? No kkallner 05:26 PM HR=95 bpm, AFZV=314/111 mmhg, SpO2=95.0 %, Resp=17 B/min, Comment=bbb 05:29 PM 2.0 mm x 12 mm Emerge Monorail balloon across target lesion- successful. reused? No kkallner 05:29 PM Recorded Pressure: Ao, HR=96, Condition=Condition 1 (Aorta) Ao 132/98/113 05:30 PM Time: 17:30 Nipride 50 mcg Intracoronary Given by Yisel Hernandez MD kkallner 05:30 PM Recorded Pressure: Ao, HR=97, Condition=Condition 1 (Aorta) Ao 96/63/77 05:31 PM HR=97 bpm, SFOV=759/99 mmhg, SpO2=94.0 %, Resp=19 B/min, Comment=bbb 05:31 PM Balloon inflated @ 6 shanita for 9 seconds [email or web address] 05:35 PM Recorded Pressure: Ao, HR=95, Condition=Condition 1 (Aorta) Ao 132/95/111 05:36 PM KW=684 bpm, NFDU=982/96 mmhg, SpO2=95.0 %, Resp=18 B/min, Comment=bbb 05:37 PM Balloon catheter removed intact. [email or web address] 05:37 PM 3.5mm x 20mm Synergy drug-eluting stent across target lesion- successful Lot #[id number] [email or web address] 05:39 PM Stent deployed @ 11 shanita for 7 seconds [email or web address] 05:40 PM Time: 17:39 Nipride 100 mcg Intracoronary Given by Yisel Hernandez MD kkner 05:40 PM Stent balloon reinflated @ 12 shanita for 5 seconds kkallner 05:40 PM Stent balloon reinflated @ 12 shanita for 4 seconds kkner 05:41 PM Stent delivery system removed intact. kkner 05:41 PM HR=96 bpm, IQZQ=422/88 mmhg, SpO2=94.0 %, Resp=20 B/min, Comment=bbb 05:42 PM Time: 17:41 Nipride 100 mcg Intracoronary Given by Yisel Hernandez MD kk 05:43 PM Guide wire removed intact. kkner 05:43 PM Guide catheter removed intact. kkner 05:46 PM HR=96 bpm, CKYM=984/95 mmhg, SpO2=90.0 %, Resp=16 B/min, Comment=bbb 05:47 PM Procedure completed at 17:47 09/01/2018 05:48 PM Time: 17:47 Heparin 2000 units Intravenous Given by Sharmila Siu RN kk 05:49 PM Did you address MAEGAN flow and Dominance? Yes kkner 05:50 PM Coronary Dominance: right [email or web address] 05:51 PM HR=93 bpm, UAZN=170/102 mmhg, SpO2=93.0 %, Resp=20 B/min 05:52 PM Sign out completed: Radiation Dose 4698 mGy, 81427 Gy/cm2 Fluoro Time: 63.9 Isovue 370 - 200ml contrast 343 ml given by Michael Oshea MD, [facility]. Complications: None. The patient was discharged out of the laborer power[facility] in stable condition. Cardiac Rehab Consult needed: YesConfirmed administered medications: Yes kkallner 05:53 PM Isovue 370 - 200ml,3 Bottle(s) used. kkallner 05:53 PM Impella Pump turned off. kkner 05:53 PM Impella sheath covered for icu transport kkallner 05:54 PM NIBP STAT measurement started. 05:55 PM HR=93 bpm, BJUU=386/94 mmhg, SpO2=96.0 %, Resp=21 B/min, Comment=bbb 05:56 PM Time: 14:45LOC: 4 = Oriented but drowsy kkallner 05:56 PM Time: 14:45 Patient comfortable and pain free: Yes kkallner 05:56 PM HR=93 bpm, LKPM=685/82 mmhg, SpO2=96.0 %, Resp=20 B/min 05:57 PM Arterial sheath pulled, Angio-seal closure device used and was Successful [id number] S/N. kkallner 06:01 PM HR=95 bpm, XOWU=929/103 mmhg, SpO2=93.0 %, Comment=bbb 06:03 PM Estimated Blood Loss: less than 50cc kkallner 06:03 PM Post ECG Sr with bbb kkallner 06:03 PM Post Blood Pressure 148/103 kkallner 06:04 PM 18:04 Post Pulses Bilateral DP & PT 1+ kkallner 06:04 PM Information taught Cardiac Cath, PCI, and Angioseal kkallner 06:04 PM Education needs Procedure, Plan of Care, and Responsibilities of Patient in Care kkallner 06:04 PM Learning barriers :None kkallner 06:04 PM Education Methods Verbal kkallner 06:04 PM Education evaluation Able to repeat information kkallner 06:04 PM Site status No bleeding/hematoma - Rt Groin as reported by Nina Maza RT (R) at 18:04 kkallner 06:04 PM Site status No bleeding/hematoma - Lt Groin as reported by Nina Maza RT (R) at 18:04 kkallner 06:05 PM Report given to Miri RN Pt taken to Holding room Room #2. 18:04 [email or web address] 06:05 PM Plavix, Effient or Brilinta given Yes kkallner 06:05 PM Time: 18:05 Brilinta 180 mg Orally Given by Sharmila Siu RN kkallner 06:06 PM Vitals capture stopped. 06:11 PM Time: 17:56 Patient comfortable and pain free: Yes kkallner 06:11 PM Time: 17:56LOC: 4 = Oriented but drowsy kkallner 06:13 PM Report given to Cezar SIDDIQUI Pt taken to ICU Room #6. 18:13 kkallner 06:14 PM Plavix, Effient or Brilinta given Yes kkallner 06:14 PM Delay to floor No kkallner 06:14 PM Patient out of room: 18:14 kkallner 06:14 PM Family placed in consult room. [email or web address] 06:14 PM Complications: None [email or web address] Complications Complication None None Hemodynamics Pressures Site Systolic/A Wave Diastolic/V Wave Mean AO 117 64 83 LV 102 12 17 AO 97 74 85 AO 85 69 77 AO 107 76 91 AO 94 76 86 AO 122 93 106 AO 109 68 88 AO 115 88 101 AO 132 98 113 AO 96 63 77 AO 132 95 111 Post Procedure Information Blood Pressure: 148/103 mmHg Rhythm: Sr with bbb Post procedural instructions were given Closure Device Time Device Success/Fail 09/01/2018 6:00:00 PM Angio-Seal VIP Successful Site Checks Time Location Status Staff Sheath In? Note 06:04 PM Rt Groin No bleeding/hematoma Nina Maza RT (R) 06:04 PM Lt Groin No bleeding/hematoma Nina Maza RT (R) Pulses Time Site Pre-Procedure Post-Procedure Note 09/01/2018 2:40:00 PM Bilateral DP & PT 1+ 09/01/2018 2:40:00 PM Bilateral radial 2+ 6:04:00 PM Bilateral DP & PT 1+ Updated by Kristin Damon, RT (R) on 09/01/2018 6:20:06 PM electronically signed on 09/01/2018 6:20:44 PM with status of Final
[2018-09-01] MEDS ORDERED: *HR* Atropine Sulfate 1 MG/10 ML SYRINGE ONE (18:44)
[2018-09-01] MEDS: *HR* Ticagrelor 90 MG TABLET PO SCH (20:08)
[2018-09-01] MEDS ORDERED: Furosemide 40 MG/4 ML VIAL ONE (21:16)
[2018-09-01] MEDS ORDERED: Furosemide 40 MG/4 ML VIAL IVP ONE (21:18)
[2018-09-01] MEDS: Insulin DETEMIR 100 UNIT/ML X5UNITS SQ SCH (21:41)
[2018-09-02] MEDS: 0.9 % Sodium Chloride 1,000 ML IVC SCH ×2 (03:01→16:28)
[2018-09-02 03:35] LABS: Basophils % 0.3 %; Eosinophils # 0.1 K/mcL (0.0-0.6); Eosinophils % 0.4 %; Hematocrit 42.6 % (37.5-50.1); Hemoglobin 13.9 g/dL (12.9-16.9); Immature Granulocytes % 0.5 % (0-4); Lymphocytes # 1.2 K/mcL (0.6-4.6); Lymphocytes % 10.2 %; Mean Corpuscular HGB Conc 32.6 g/dL (31.6-35.5); Mean Corpuscular Hemoglobin 26.9 pg (28.0-33.3); Mean Corpuscular Volume 82.4 fL (83.0-100.0); Mean Platelet Volume 9.8 fL (9.4-12.4); Monocytes # 1.1 K/mcL (0.0-1.3); Monocytes % 9.1 %; Neutrophils # 9.2 K/mcL (1.6-8.9); Platelet Count 280 K/mcL (140-400); Red Blood Count 5.17 M/mcL (4.19-5.50); Red Cell Distribution Width 14.5 % (11.5-14.5); Segmented Neutrophils % 79.5 %
[2018-09-02 03:53] LABS: Calcium 9.1 mg/dL (8.6-10.3); Phosphorous 3.3 mg/dL (2.7-4.5); Potassium 3.8 mEq/L (3.5-5.1)
[2018-09-02] MEDS: Insulin LISPRO 300 UNITS/3 ML VIAL SQ SCH ×4 (07:01→20:37)
[2018-09-02] MEDS: *HR* Ticagrelor 90 MG TABLET PO SCH ×2 (07:55→20:36)
[2018-09-02] MEDS: Fenofibrate 54 MG TABLET PO SCH (07:55)
[2018-09-02] MEDS: amLODIPine 5 MG TABLET PO SCH (07:56)
[2018-09-02] MEDS: Aspirin Enteric Coated 81 MG Tablet PO SCH (07:56)
[2018-09-02] MEDS: Isosorbide MONOnitrate (24 HR) 30 MG TAB.ER.24H PO SCH (07:56)
[2018-09-02] MEDS: *HR* Acetylcysteine 20% 600 MG/3 ML ORAL SYRINGE PO SCH ×2 (07:58→20:36)
[2018-09-02] MEDS: Aspirin 81 MG TAB.CHEW PO SCH (08:00)
[2018-09-02] MEDS: Heparin 25,000 UNIT/500 ML D5W 25,000 UNIT/500 ML BAG IVC SCH (08:00)
--- NOTE | 2018-09-02 10:25 | Cardiology Progress Note ---
<Rafi Shepard T - Last Filed: 09/02/18 11:00> Date of Encounter: 09/02/18 Time of Encounter: 10:25 Assessment and Plan (1) NSTEMI (non-ST elevated myocardial infarction) Current Visit: Yes Status: Acute Recomend patient go on SIMON-I or ARB once his creatinine stabilizes. Creatinine currently at 1.4 but will rise due to contrast given during LHC. Started cardiac diet and cardiac rehab phase 1. Cardiology team aware of episode of flash pulmonary edema. Switched metropolol tartrate 50 BID to toprolol 100 QD. Will continue monitoring patient. (2) CKD (chronic kidney disease) stage 3, GFR 30-59 ml/min Current Visit: Yes Status: Chronic Patient's troponins are down from 1.7 to 1.4. However, he received 300 mL of contrast during LHC yesterday so expect creatinine to rise in coming days. Nephro following patient. Discussion w patient/family: The assessment and plan as outlined above was discussed with the patient and/or family members who expressed understanding and agreement. All questions were answered. Thank you for involving us in the care of your patient. Please call with any questions. Subjective Principal diagnosis: chest pain/nstemi Interval history: Patient is here for CP s/p day 1 for LHC with impella. Patient reports he is comfortable today. Denies CP, paliptations, SOB. Per his ICU nurse he had an episode of flash pulmonary edema at 4AM, was given lasixs and his breathing improved. Patient reports no acute changes today and is comfortable. Denies increasing CP or SOB. Denies chest palpitations. Very mild tenderness at site of catheter insertion in left thigh. Objective Vital Signs, Last 4 Hours Temp Pulse Resp BP Pulse Ox 09/02/18 10:00 88 18 114/75 95 09/02/18 09:00 84 18 120/70 93 09/02/18 08:00 100 18 133/86 95 09/02/18 07:25 97.7 F 09/02/18 07:07 92 09/02/18 07:00 95 18 121/83 96 General: Conversant, No Apparent Distress HEENT: Atraumatic Neck: No JVD Cardiac: Reg Rate and Rhythm, Normal S1 and S2, No Murmur Lungs: Normal Breath Sounds, No Wheeze, Rales, Rhonchi Neuro: Alert and responsive, No focal deficits noted Abdomen: Soft, Non-Tender Skin: No rashes noted on visualized skin Musculoskeletal: No Chest Wall Tenderness Extremities: No Clubbing, No Cyanosis, No Edema, Normal Pulses Results 09/02/18 03:06 09/02/18 03:06 Lab Results 09/02/18 09/02/18 03:06 03:06 WBC 11.6 H Hgb 13.9 Hct 42.6 Plt Count 280 Sodium 132 L Potassium 3.8 Chloride 98 Carbon Dioxide 25 BUN 28 H Creatinine 1.42 H Glucose 273 H Calcium 9.1 Magnesium 2.0 Consult Discharge Plan - Plan Referrals: Bill Penn DO [Primary Care Provider] - <Zunilda Connelly - Last Filed: 09/02/18 17:28> Assessment and Plan Discussion w patient/family: The assessment and plan as outlined above was discussed with the patient and/or family members who expressed understanding and agreement. All questions were answered. Thank you for involving us in the care of your patient. Please call with any questions. Objective Vital Signs, Last 4 Hours Temp Pulse Resp BP Pulse Ox 09/02/18 17:02 98.9 F 09/02/18 16:00 92 18 137/89 96 09/02/18 15:00 94 18 145/88 93 09/02/18 14:00 99 20 128/91 94 Results 09/02/18 03:06 09/02/18 03:06 Lab Results 09/02/18 09/02/18 03:06 03:06 WBC 11.6 H Hgb 13.9 Hct 42.6 Plt Count 280 Sodium 132 L Potassium 3.8 Chloride 98 Carbon Dioxide 25 BUN 28 H Creatinine 1.42 H Glucose 273 H Calcium 9.1 Magnesium 2.0 - Attending Attestation Patient was seen and evaluated independently by me. Findings, assessment and plan were discussed in detail with patient, questions answered. Agree with nurse practitioner's/resident's documentation. Addition as follows, PHUONG- dLM, PHUONG-SVG-RCA with Impella yesterday, overnight dyspnea resolved after lasix and short term BiPAP. No c/o am. No event on Tele. No O2 requirement. PE unremarkable. A: NSTEMI, s/p PHUONG- dLM, PHUONG-SVG-RCA HFrEF, EF 45% CKD3 P: hydration to lower ARYAN risk lasix prn DAPT>1 yr high intensity statin switch lopressor to toprol will need ACEi/ARB when out of ARYAN period [id number] [facility] Impressions: There is severe three vessel coronary artery disease. Patient had successful PTCA/Drug-Eluting Stent placement in the distal Left Main. Patient had successful PTCA/Drug-Eluting Stent placement in the SVG to RCA. Impella was placed for LV support Zunilda Connelly MD, PhD
--- NOTE | 2018-09-02 13:25 | Nephrology Progress Note ---
Date of Encounter: 09/02/18 Time of Encounter: 11:45 - Assessment and Plan (1) CKD (chronic kidney disease) stage 3, GFR 30-59 ml/min Current Visit: Yes Status: Chronic Patient had acute kidney injury secondary to [facility] on 08/28. Patient has known CKD stage III. 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 Creatinine 1.42 (improved from 1.76) baseline is 1.3 to 1.4 GFR 49 (baseline 48 to 53) I&O: Plan: -patient has improved renal function back baseline and appropriate urine output. Will continue with treatment of acetylcysteine until Friday and IVF 60ml/hr for 1 more liter. -Continue to avoid nephrotoxic agents and renal dose medications -Monitor I&O and serum creatinine (2) NSTEMI (non-ST elevated myocardial infarction) Current Visit: Yes Status: Acute Status post left heart catheterization with Impella on 08/28/2018 -management per cardiology Subjective Principal diagnosis: chest pain/nstemi Interval history: Patient seen and examined at bedside. He is alert and oriented times 3. There is a family member at bedside. He denies fever, chills, chest pain, shortness breath, difficulty urinating, hematuria. He denies any complaints at this time. Objective - Vital Signs Vital signs: Vital Signs Temp Pulse Pulse Resp BP Pulse Ox 09/02/18 13:00 93 18 125/85 94 09/02/18 12:00 96 14 129/88 94 09/02/18 11:58 98.2 F 09/02/18 11:00 86 20 104/64 91 09/02/18 10:00 88 18 114/75 95 09/02/18 09:00 84 18 120/70 93 09/02/18 08:00 100 18 133/86 95 09/02/18 07:25 97.7 F 09/02/18 07:07 92 09/02/18 07:00 95 18 121/83 96 09/02/18 06:02 929 19 145/86 98 09/02/18 05:00 92 18 110/63 95 09/02/18 04:00 97 F L 88 18 104/77 95 09/02/18 03:00 93 16 135/80 94 09/02/18 02:00 93 19 130/95 96 09/02/18 01:04 94 14 109/75 95 09/02/18 00:01 93 16 130/82 99 09/01/18 23:00 97 F L 92 19 125/84 95 09/01/18 22:00 89 20 124/83 100 09/01/18 21:36 105 22 142/93 98 09/01/18 21:34 30 142/93 96 09/01/18 21:15 101 24 198/110 90 09/01/18 21:00 110 24 162/89 90 09/01/18 20:40 104 24 146/118 88 09/01/18 20:35 104 22 135/118 89 09/01/18 20:30 101 20 147/105 90 09/01/18 20:25 95 17 145/89 96 09/01/18 20:04 93 09/01/18 20:00 91 17 138/97 96 09/01/18 19:47 92 09/01/18 19:34 97 09/01/18 19:18 93 20 147/90 93 09/01/18 19:16 93 09/01/18 19:04 95 09/01/18 19:00 96 20 142/95 909 09/01/18 18:51 96 09/01/18 18:46 98.2 F 96 20 135/99 90 09/01/18 18:45 96 09/01/18 18:30 99 09/01/18 18:15 98 Intake and Output 09/01/18 09/02/18 09/02/18 23:59 07:59 15:59 Intake Total 500 / 500 1170 / 1170 360 / 360 Output Total 1650 / 1650 400 / 400 300 / 300 Balance -1150 / -1150 770 / 770 60 / 60 Intake: IV Fluids 500 / 500 1050 / 1050 0.9 % Sodium Chloride 1,000 ML 1000 / 1000 @ 60 mls/hr IVC .[id number] [facility] Rx #:[id number] Heparin 25,000 UNIT/500 ML D5W 500 / 500 25,000 unit In 500 ml @ 11.4 UNIT/KG/HR 19.836 mls/hr IVC . Q24H [facility] Rx#:[id number] Aggrastat 12.5 MG/250 ML 12.5 50 / 50 mg In 250 ml @ 0.075 MCG/KG/MIN 8.1 mls/hr IVC .Q24H [facility] Rx#: [id number] Oral 120 / 120 360 / 360 Output: Urine 1650 / 1650 400 / 400 300 / 300 Other: Meal Lunch Percent of Meal Consumed 100% Stool Size Moderate Stool Consistency soft formed Stool Characteristics Normal for Patient Stool Color Brown # Bowel Movements 1 Weight 86 kg Blood Glucose* 268 249 293 - General Appearance General appearance: Present: well-developed, well-nourished, appears started age EENT: Present: mucous membranes moist Neck: Present: supple Respiratory: Present: clear Cardiology: Present: no edema, regular rate, regular rhythm Gastrointestinal: Present: normoactive bowel sounds, no tenderness, no guarding, no organomegaly Integumentary: Present: no rash, warm and dry Neurologic: Present: no focal deficit, no asterixis, alert and oriented x3 Musculoskeletal: Present: no deformities, no clubbing Psychiatric: Present: mood/affect appropriate, cooperative - Lab 09/02/18 03:06 09/02/18 03:06 Most recent lab results Calcium 9.1 mg/dL (8.6-10.3) 09/02/18 03:06 Phosphorus 3.3 mg/dL (2.7-4.5) 09/02/18 03:06 Magnesium 2.0 mg/dL (1.6-2.6) 09/02/18 03:06 Consult Discharge Plan - Plan Referrals: Bill Penn DO [Primary Care Provider] -
--- NOTE | 2018-09-02 13:59 | Internal Med Progress Note ---
Hospitalist Progress Note - Encounter Date of Encounter: 09/02/18 Time of Encounter: 13:54 - Subjective Interval History: Seen and evaluated at bedside. Reports that he is doing well. denies chest pain, shortness of breath, nausea or vomiting. - Exam Vitals: Temp Pulse Resp BP Pulse Ox 98.2 F 93 18 125/85 94 09/02/18 11:58 09/02/18 13:00 09/02/18 13:00 09/02/18 13:00 09/02/18 13:00 Exam: General: Alert, oriented x4. No distress. Eyes: anicteric sclerae, moist conjunctivae, PERRLA HENT: Atraumatic, moist mucous membranes and no mucosal ulcerations; Lungs: CTA b/l, with normal respiratory effort and no intercostal retractions CV: RRR, normal s1s2, no MRGs. Abdomen: Soft, non-tender, or distended, normo active bowel sounds in all 4 quadrant. Extremities: No peripheral edema. strength is 5/5 in the upper and lower ext. Neuro: CN II-XII intact. Skin: no rash, Psych: Appropriate affect - Assessment and Plan (1) NSTEMI (non-ST elevated myocardial infarction) Current Visit: Yes Status: Acute Assessment and Plan: S/P [facility] with impella 09/01/18 Plan Plan of care as per Cardiology recommendations on a heparin drip brillinta, aspirin and statin on Metoprolol tartrate 50mg/PO BID and metoprolol succinate 100 mg by mouth daily Isosorbide 30mg/PO daily No ACEs or ARBs due to SINCERE/CKD. (2) Congestive heart failure (CHF) Current Visit: Yes Status: Acute Assessment and Plan: Patient is Euvolemic. Plan Strict intake and output daily weight on a bb no geronimo due sincere/ckd (3) CAD (coronary artery disease) Current Visit: Yes Status: Chronic Assessment and Plan: Plan of care as above (4) DM2 (diabetes mellitus, type 2) Current Visit: Yes Status: Chronic Assessment and Plan: Blood sugar sub-optimally controlled Plan: Increase levemir to 2o units BID Lispro sliding scale ac medium dose carb controlled diet (5) CKD (chronic kidney disease) stage 3, GFR 30-59 ml/min Current Visit: Yes Status: Chronic Assessment and Plan: Creat improved. Continue IV hydration on Acetylcysteine Avoid nephrotoxic medication Will continue to follow nephro recommendations (6) HTN (hypertension) Current Visit: Yes Status: Chronic Assessment and Plan: BP well controlled. Patient on multiple antihypertensive medications will continue current management. (7) HLD (hyperlipidemia) Current Visit: Yes Status: Chronic Assessment and Plan: Continue atorvastatin and fenofibrate. (8) GERD (gastroesophageal reflux disease) Current Visit: Yes Status: Chronic Assessment and Plan: On omeprazole 20 mg by mouth daily. (9) History of GI bleed Current Visit: Yes Status: Chronic DVT Prophylaxis: Patient on a Heparin drip due to NSTEMI - Summary of Assessment and Plan Summary of Assessment and Plan: Patient to remain in the hospital due to recent LHC with impella implantation, on a heparin drip. - Time Spent with Patient Total time spent is greater than 50% in coordination of care (as documented) at patient's floor/unit and/or counseling patient: 25 - 35 minutes (28) Plan of Care Discussed with: patient (family.) Internal Medicine: Result - Labs CBC & Chem 7: 09/02/18 03:06 09/02/18 03:06 Labs: Short CBC 09/02/18 Range/Units 03:06 WBC 11.6 H (4.3-11.1) K/mcL Hgb 13.9 (12.9-16.9) g/dL Hct 42.6 (37.5-50.1) % Plt Count 280 (140-400) K/mcL Neutrophils # 9.2 H (1.6-8.9) K/mcL BMP 09/02/18 03:06 Sodium 132 L Potassium 3.8 Chloride 98 Carbon Dioxide 25 BUN 28 H Creatinine 1.42 H Glucose 273 H Calcium 9.1 - ABG Interpretation ABG results: PT/INR, D-dimer PT 11.1 Seconds (9.4-12.1) 08/28/18 10:57 Consult Discharge Plan - Plan Referrals: Bill Penn DO [Primary Care Provider] - (2) Congestive heart failure (CHF) Qualifiers: Heart failure type: systolic Heart failure chronicity: chronic Qualified Code(s): I50.22 - Chronic systolic (congestive) heart failure (3) CAD (coronary artery disease) Qualifiers: Coronary Disease-Associated Artery/Lesion type: bypass graft [place] vs. transplanted heart: [place] heart Associated angina: without angina Qualified Code(s): I25.810 - Atherosclerosis of coronary artery bypass graft(s) without angina pectoris (4) DM2 (diabetes mellitus, type 2) Qualifiers: Diabetes mellitus complication status: without complication Qualified Code(s): E11.9 - Type 2 diabetes mellitus without complications (6) HTN (hypertension) Qualifiers: Hypertension type: essential hypertension Qualified Code(s): I10 - Essential (primary) hypertension (7) HLD (hyperlipidemia) Qualifiers: Hyperlipidemia type: pure hypercholesterolemia Qualified Code(s): E78.00 - Pure hypercholesterolemia, unspecified; E78.0 - Pure hypercholesterolemia (8) GERD (gastroesophageal reflux disease) Qualifiers: Esophagitis presence: esophagitis presence not specified Qualified Code(s): K21.9 - Gastro-esophageal reflux disease without esophagitis
[2018-09-02] MEDS: Insulin DETEMIR 100 UNIT/ML X5UNITS SQ SCH (20:37)
[2018-09-03 04:43] LABS: Basophils # 0.1 K/mcL (0.0-0.2); Basophils % 0.5 %; Eosinophils # 0.2 K/mcL (0.0-0.6); Eosinophils % 1.4 %; Immature Granulocytes % 0.6 % (0-4); Lymphocytes # 1.9 K/mcL (0.6-4.6); Lymphocytes % 17.6 %; Mean Corpuscular HGB Conc 32.8 g/dL (31.6-35.5); Mean Corpuscular Hemoglobin 27.2 pg (28.0-33.3); Mean Corpuscular Volume 82.9 fL (83.0-100.0); Mean Platelet Volume 9.5 fL (9.4-12.4); Monocytes # 0.9 K/mcL (0.0-1.3); Monocytes % 8.6 %; Neutrophils # 7.7 K/mcL (1.6-8.9); Platelet Count 222 K/mcL (140-400); Red Blood Count 4.34 M/mcL (4.19-5.50); Red Cell Distribution Width 14.5 % (11.5-14.5); Segmented Neutrophils % 71.3 %
[2018-09-03 04:46] LABS: Hemoglobin 11.8 g/dL (12.9-16.9)
[2018-09-03 05:00] LABS: Calcium 8.8 mg/dL (8.6-10.3); Magnesium 1.9 mg/dL (1.6-2.6); Phosphorous 2.6 mg/dL (2.7-4.5); Potassium 3.5 mEq/L (3.5-5.1)
[2018-09-03] MEDS: Aspirin 81 MG TAB.CHEW PO SCH (08:16)
[2018-09-03] MEDS: *HR* Ticagrelor 90 MG TABLET PO SCH ×2 (08:17→19:56)
[2018-09-03] MEDS: Metoprolol XL (24 HR) Succ 50 MG TAB.ER.24H PO SCH (08:17)
[2018-09-03] MEDS: Isosorbide MONOnitrate (24 HR) 30 MG TAB.ER.24H PO SCH (08:17)
[2018-09-03] MEDS: Fenofibrate 54 MG TABLET PO SCH (08:17)
[2018-09-03] MEDS: amLODIPine 5 MG TABLET PO SCH (08:17)
[2018-09-03] MEDS: *HR* Acetylcysteine 20% 600 MG/3 ML ORAL SYRINGE PO SCH ×2 (08:18→19:54)
--- NOTE | 2018-09-03 08:22 | Invasive Diagnostic Lab Proc ---
Name: Jesús Cervantes Date of Study: 09/01/2018 Date: 1945 Ht: 68.1in Medical Record#: [id number] Age: 72 Wt: 198.42lb Gender: Male BSA: 2.04 Order #: [id number] BMI: 30.07 Physicians Procedure Physician: Musa Hernandez MD Referring MD: Referring MD: Staff Name Position Time In Kristin Damon RT Scrub 02:43 PM Veronica Avina RN Monitor 02:43 PM Boyd Lerma RN Case Assembler 02:43 PM Sharmila Siu RN Case Assembler 02:43 PM Maura Montez RT (R) Scrub 02:44 PM Michael Oshea MD Lane 02:44 PM Indications Indication Non-Stemi Procedures Performed Procedure Insert VAD artery access PRQ CARD PHUONG STENT W/ANGIO 1 VSL PRQ REVASC BYP GRAFT 1 VSL Pre-Procedure Checklist Informed consent is complete signed and on chart. H&P is on chart. ID band is on and ID verified with patient. Patient NPO for procedure The procedure was described for the patient and questions were answered. Blood Pressure: 116/76 ECG is on chart. Rhythm: NSR Plan of Care Patient will tolerate the procedure without complications. Adequate level of comfort will be maintained. Hemodynamics will remain stable Patient will recover from procedure without complications. Respiratory function will be maintained. Cardiac rhythm will remain stable. Patient temperature will be maintained. Patient and/or family have verbalized understanding of the procedure. Patient Education Intravenous Access Time IV Size Location DC'd Fluid/Drip Rate Units RN 02:40 PM 20g 1 1/4" Patent On Arrival Lt Arm 0.9NaCl 25 ml/hr 02:40 PM Started with 18g needle 1 1/4" Lt Antecubital 0.9NaCl 25 ml/hr Sharmila Siu RN Allergies No Known Allergies Vital Signs Time BP (mmHg) HR (bpm) O2 Sat. RR (bpm) LOC 02:45 PM / % 5 = Fully awake and oriented or at pre-proc level 02:45 PM / % 4 = Oriented but drowsy 05:56 PM / % 4 = Oriented but drowsy 03:05 PM 114 / 76 91 92 % 17 03:11 PM 112 / 74 89 92 % 20 03:15 PM 115 / 79 93 94 % 28 03:21 PM 111 / 75 89 93 % 15 03:26 PM 104 / 76 91 96 % 13 03:30 PM 112 / 79 90 95 % 15 03:35 PM 118 / 86 93 96 % 15 03:41 PM 114 / 87 91 94 % 16 03:46 PM 112 / 85 88 95 % 15 03:51 PM 119 / 89 93 94 % 16 04:46 PM 136 / 100 93 98 % 16 04:51 PM 137 / 99 91 97 % 16 04:56 PM 135 / 106 94 96 % 17 05:01 PM 143 / 106 93 96 % 18 05:06 PM 140 / 101 94 96 % 19 05:11 PM 139 / 105 92 95 % 18 05:16 PM 140 / 96 94 95 % 16 05:21 PM 142 / 105 94 95 % 19 05:26 PM 141 / 111 95 95 % 17 05:31 PM 131 / 99 97 94 % 19 02:51 PM 133 / 81 93 94 % 10 02:56 PM 126 / 81 98 93 % 18 03:01 PM 106 / 70 96 87 % 16 03:56 PM 118 / 89 89 96 % 16 04:01 PM 122 / 88 93 94 % 15 04:06 PM 113 / 81 95 95 % 17 04:11 PM 127 / 92 93 94 % 16 04:16 PM 127 / 93 90 98 % 17 04:21 PM 124 / 95 91 98 % 16 04:26 PM 128 / 97 91 98 % 17 04:31 PM 131 / 102 93 98 % 18 04:36 PM 133 / 100 92 99 % 16 04:41 PM 138 / 106 93 99 % 18 05:36 PM 125 / 96 100 95 % 18 05:41 PM 125 / 88 96 94 % 20 05:46 PM 140 / 95 96 90 % 16 05:51 PM 146 / 102 93 93 % 20 05:55 PM 141 / 94 93 96 % 21 05:56 PM 140 / 82 93 96 % 20 06:01 PM 148 / 103 95 93 % Procedural Medications Time Medication Dose Units Method Given By 02:45 PM Oxygen 2 L/min nasal cannula Sharmila Siu RN 03:00 PM Versed 2 mg Intravenous Sharmila Siu RN 03:00 PM Fentanyl 50 mcg Intravenous Sharmila Siu RN 03:09 PM Lidocaine 2% 15 ml Subcutaneous Yisel Hernandez MD 03:11 PM Oxygen 4 L/min nasal cannula Sharmila Siu RN 03:15 PM Lidocaine 2% 10 ml Subcutaneous Yisel Hernandez MD 03:20 PM Heparin 4500 units Intravenous Sharmila Siu RN 03:21 PM Versed 0.5 mg Intravenous Sharmila Siu RN 03:21 PM Fentanyl 25 mcg Intravenous Sharmila Siu RN 03:31 PM Heparin 1000 units Intravenous Sharmila Siu RN 03:41 PM Heparin 500 units Intravenous Sharmila Siu RN 03:41 PM Aggrastat Bolus: 46 ml Intravenous Sharmila Siu RN 03:43 PM Aggrastat 12.5mg/250ml 8.25 ml Intravenous Sharmila Siu RN 04:07 PM Nitroglycerin 50 mcg Intracoronary Yisel Hernandez MD 04:25 PM Heparin 1000 units Intravenous Sharmila Siu RN 05:30 PM Nipride 50 mcg Intracoronary Yisel Hernandez MD 05:05 PM Heparin 1000 units Intravenous Sharmila Siu RN 05:39 PM Nipride 100 mcg Intracoronary Yisel Hernandez MD 05:41 PM Nipride 100 mcg Intracoronary Yisel Hernandez MD 05:47 PM Heparin 2000 units Intravenous Sharmila Siu RN 06:05 PM Brilinta 180 mg Orally Sharmila Siu RN ASA Classification: CLASS III- Severe systemic disease (i.e. prior AMI, diabetes with vascular complications, morbid obesity) Rosa Maria Score Preprocedure Postprocedure Activity 2- Moves 4 extremities sustained head lift Activity 2- Moves 4 extremities sustained head lift Circulation 2- SBP +/= 20 points of pre-anesthetic level Circulation 2- SBP +/= 20 points of pre-anesthetic level Consciousness 2- Awake and alert oriented x 3 Consciousness 2- Awake and alert oriented x 3 O2 Saturation 2- Able to maintain O2 satruation of 92% on room air O2 Saturation 2- Able to maintain O2 satruation of 92% on room air Respiratory 2- Able to deep breathe and cough well Respiratory 2- Able to deep breathe and cough well Total Score 10 Total Score 10 Contrast Agent: Isovue Diagnostic Contrast: 343 ml Total Contrast: 343 ml Fluoro Dose: 86071 mGy Activated Clotting Time Time Seconds to Clot 03:31 PM 218 03:44 PM 219 03:46 PM 250 04:25 PM 207 Procedure Log Time Note Enter By 02:43 PM Pt arrived to slab installer 2 at 14:43 [email or web address] 02:43 PM Kristin Damon RT Position: Scrub Time in: :ner 02:43 PM Veronica Avina RN Position: Monitor Time in: :43 PM Boyd Lerma RN Position: Case Assembler Time in: :ner 02:43 PM Sharmila Siu RN Position: Case Assembler Time in: : kkner 02:44 PM Maura Montez RT (R) Position: Scrub Time in: :ner :44 PM Patient charges- Angio tray pack, Navilyst 3mm J, Pulse Oximetry and ACIST tubing and transducer kk:44 PM Case Delayed No kkall:44 PM Physician arrived 14::44 PM Michael Oshea present to assist and lane Impella insertion but not with PCI kk:44 PM Harsh and jeanette completed :44 PM Sign in with Musa Hernandez performed according to hospital policy. Informed consent was obtained. :44 PM Procedure start 14:44 :45 PM Time: 14:45 Oxygen on at 2 L/min per nasal cannula by Sharmila Sui RN :45 PM Time: 14:45 Patient comfortable and pain free: Yes :45 PM Time: 14:45LOC: 5 = Fully awake and oriented or at pre-proc level kk 02:45 PM Clinical Presentation: Unstable angina kkallner 02:45 PM pt notified of high risk procedure . pt agreed to proceed DNRCC will be void for cath procedure 02:46 PM Recorded ECG: CP=900 Condition=Condition 1 02:46 PM CathStat 02:47 PM Vitals capture started with the following parameters, Patient=Adult, Interval=5 min, Initial Rzbxrnvj=528 mmHg, Deflation Rate=5 mmHg, Cuff placed on Right Arm 02:50 PM defib pads placed kkallner 02:50 PM Vitals capture started with the following parameters, Patient=Adult, Interval=5 min, Initial Hkgraboi=140 mmHg, Deflation Rate=5 mmHg, Cuff placed on Right Arm 02:51 PM HR=93 bpm, ELVW=955/81 mmhg, SpO2=94.0 %, Resp=10 B/min 02:56 PM HR=98 bpm, EHLA=449/81 mmhg, SpO2=93.0 %, Resp=18 B/min, Comment=bbb 03:00 PM Time: 15:07 Versed 1 mg Intravenous Given by Sharmila Siu RN 03:00 PM Time: 15:08 Fentanyl 50 mcg Intravenous Given by Sharmila Siu RN 03:01 PM HR=96 bpm, UJKT=221/70 mmhg, SpO2=87.0 %, Resp=16 B/min, Comment=bbb 03:05 PM HR=91 bpm, YBXS=371/76 mmhg, SpO2=92.0 %, Resp=17 B/min, EtCO2=32 mmHg, Comment=bbb 03:08 PM Clinical Presentation: Non-STEMI kkallner 03:09 PM Time out was performed according to hospital policy. Conscious sedation and anesthesia was achieved (see medication log with in this report above) [email or web address] 03:09 PM Time: 15:09 15 ml Lidocaine 2% to right groin Subcutaneous Given by Musa Hernandez MD 03:11 PM HR=89 bpm, RTIE=182/74 mmhg, SpO2=92.0 %, Resp=20 B/min, EtCO2=32 mmHg, Comment=bbb 03:11 PM Micro-Introducer Kit utilized for sheath placement [email or web address] 03:11 PM Time: 15:11 Oxygen on at 4 L/min per nasal cannula by Sharmila Siu RN 03:12 PM Access obtained by percutaneous puncture. 6Fr 11cm Terumo Glidesheath sheath placed in right Femoral artery. [id number] allner 03:13 PM Recorded ECG: HR=91 Condition=Condition 1 03:14 PM Pressure channel 1 zero failed. 03:14 PM Pressure channel 1 zeroed. 03:15 PM Time: 15:15 10 ml Lidocaine 2% to left groin Subcutaneous Given by Musa Hernandez MD 03:15 PM Micro-Introducer Kit utilized for sheath placement kkallner 03:15 PM Bolus angiogram of left Femoral complete: hand injected total of 4 mls kkallner 03:15 PM HR=93 bpm, AZPO=552/79 mmhg, SpO2=94.0 %, Resp=28 B/min, Comment=bbb 03:16 PM access obtained, dialating artery up a 14F for impella sheath in left groin 03:18 PM An injection of 4 ml. of Isovue 370- 200ml was used for angiography of the left groin in the AP projection 03:20 PM Access obtained by percutaneous puncture. 14Fr 25cm Abiomed sheath placed in left femoral artery. [id number] 03:20 PM Time: 15:20 Heparin 4500 units Intravenous Given by Sharmila Siu RN ner 03:21 PM HR=89 bpm, VWEK=576/75 mmhg, SpO2=93.0 %, Resp=15 B/min, EtCO2=29 mmHg, Comment=bbb 03:21 PM Time: 15:21 Versed 0.5 mg Intravenous Given by [facility] PM Time: 15:21 Fentanyl 25 mcg Intravenous [facility] PM Recorded Pressure: Ao, HR=90, Condition=Condition 1 (Aorta) Ao 117/64/83 03:23 PM 5Fr Pigtail catheter inserted over the wire [facility] 03:23 PM .018 Jwire 260cm guide wire inserted through catheter. 03:26 PM HR=91 bpm, CHWH=995/76 mmhg, SpO2=96.0 %, Resp=13 B/min, EtCO2=35 mmHg, Comment=bbb 03:26 PM Wire removed ner 03:26 PM Recorded Pressure: LV, HR=91, Condition=Condition 1 (Left Ventricle) LV 102/12/17 03:29 PM Pigtail catheter removed intact 03:30 PM HR=90 bpm, PMPD=762/79 mmhg, SpO2=95.0 %, Resp=15 B/min, EtCO2=30 mmHg, Comment=bbb 03:31 PM At 15:31 the ACT was 218 seconds. 03:31 PM Time: 15:31 Heparin 1000 units Intravenous Given by Sharmila Siu RN 03:31 PM Impella Catheter inserted over .018 wire. [id number]. *ACC* catheter inserted 11 03:32 PM Impella catheter inserted accrossed valve and position in left ventricle. .018 wire removed. Catheter attached to pump. 03:34 PM Impella Pump started in auto. [email or web address] 03:34 PM Perfusion in lab to assist with Impella device. Adrien kkallner 03:35 PM HR=93 bpm, WOTF=924/86 mmhg, SpO2=96.0 %, Resp=15 B/min, EtCO2=32 mmHg, Comment=bbb 03:37 PM 6Fr EBU 3.5 Medtronic guide catheter was used to cannulate the PCI vessel successfully. reused? No kkallner 03:39 PM 0.035 260cm Navilyst 3mmJ wire [id number] kkallner 03:39 PM Guide catheter removed intact. kkallner 03:39 PM 6Fr EBU 3.0 Medtronic guide catheter was used to cannulate the PCI vessel successfully. reused? No kkallner 03:41 PM HR=91 bpm, VMNX=047/87 mmhg, SpO2=94.0 %, Resp=16 B/min, Comment=bbb 03:41 PM Time: 15:41 Heparin 500 units Intravenous Given by Sharmila Siu RN kkallner 03:42 PM At 15:44 the ACT was 219 seconds. [email or web address] 03:43 PM Time: 15:41 Aggrastat Bolus: 46 ml Intravenous Given by Sharmila Siu RN Hammer pump kkallner 03:43 PM Time: 15:43 Aggrastat 12.5mg/250ml 8.25 ml Intravenous Given by Sharmila Siu RN Hammer pump kkallner 03:43 PM .014 BMW Kenly 190cm guide wire across target lesion- successful. reused? No kkallner 03:45 PM 2.0 mm x 20 mm Emerge Monorail balloon across target lesion- successful. reused? No kkallner 03:[address] Hernandez. stated that he was good at this point. left case at this time kkallner 03:46 PM HR=88 bpm, XTJI=405/85 mmhg, SpO2=95.0 %, Resp=15 B/min 03:46 PM At 15:46 the ACT was 250 seconds. [email or web address] 03:47 PM Lesion found in Distal LMCA. Pre Stenosis: 80 Pre MAEGAN Flow: 3: Complete and Brisk Flow/Perfusion kkallner 03:49 PM Balloon inflated @ 6 shanita for 7 seconds kkallner 03:49 PM Recorded Pressure: Ao, HR=92, Condition=Condition 1 (Aorta) Ao 97/74/85 03:49 PM Balloon catheter removed intact. [email or web address] 03:50 PM Lesion found in Distal RCA. Pre Stenosis: 100 Pre MAEGAN Flow: 0 kkallner 03:51 PM HR=93 bpm, DUWF=895/89 mmhg, SpO2=94.0 %, Resp=16 B/min, Comment=bbb 03:54 PM 3.5mm x 16mm Promus Premier Rx drug-eluting stent across target lesion- successful Lot #[id number] kkallner 03:54 PM promus stent removed intact, not deployed kkallner 03:55 PM 2.5 mm x 12 mm Emerge Monorail balloon across target lesion- successful. reused? No kkallner 03:56 PM HR=89 bpm, BMJT=876/89 mmhg, SpO2=96.0 %, Resp=16 B/min, Comment=bbb 03:56 PM Balloon inflated @ 6 shanita for 7 seconds kkallner 03:56 PM Balloon inflated @ 8 shanita for 5 seconds kkallner 03:57 PM Recorded Pressure: Ao, HR=95, Condition=Condition 1 (Aorta) Ao 85/69/77 03:58 PM 3.5mm x 12mm Synergy drug-eluting stent across target lesion- successful Lot #[id number] kkallner 03:59 PM stent removed intact, not deployed kkallner 04:00 PM 3.0 mm x 15 mm Emerge Monorail balloon across target lesion- successful. reused? No kkallner 04:00 PM Recorded Pressure: Ao, HR=91, Condition=Condition 1 (Aorta) Ao 107/76/91 04:01 PM HR=93 bpm, GCHR=614/88 mmhg, SpO2=94.0 %, Resp=15 B/min, Comment=bbb 04:01 PM Balloon inflated @ 10 shanita for 9 seconds kkallner 04:02 PM Balloon inflated @ 14 shanita for 7 seconds kkallner 04:02 PM Balloon catheter removed intact. kkallner 04:03 PM 3.5x12 synergy reinserted kkallner 04:06 PM Stent deployed @ 9 shanita for 7 seconds kkallner 04:06 PM HR=95 bpm, NWZJ=482/81 mmhg, SpO2=95.0 %, Resp=17 B/min 04:06 PM Stent balloon reinflated @ 14 shanita for 6 seconds kkner 04:06 PM Stent delivery system removed intact. kkner 04:08 PM Time: 16:07 Nitroglycerin 50 mcg Intracoronary Given by Yisel Hernandez MD 04:11 PM HR=93 bpm, AJDD=865/92 mmhg, SpO2=94.0 %, Resp=16 B/min 04:11 PM 3.5 mm x 12mm NC Emerge balloon across target lesion- successful. reused? No kkner 04:12 PM Balloon inflated @ 8 shanita for 6 seconds [email or web address] 04:13 PM Recorded Pressure: Ao, HR=93, Condition=Condition 1 (Aorta) Ao 94/76/86 04:13 PM Balloon inflated @ 16 shanita for 8 seconds kkner 04:14 PM Guide wire removed intact. kkner 04:14 PM long j reinserted kkner 04:15 PM 6Fr JR 4 Cordis guide catheter was used to cannulate the PCI vessel successfully. reused? No kkner 04:16 PM HR=90 bpm, TWLF=573/93 mmhg, SpO2=98.0 %, Resp=17 B/min, Comment=bbb 04:19 PM wire reinserted catheter removed kkner 04:20 PM 6Fr MPA Runway guide catheter was used to cannulate the PCI vessel successfully. reused? No kkner 04:21 PM HR=91 bpm, UYBB=443/95 mmhg, SpO2=98.0 %, Resp=16 B/min, Comment=bbb 04:25 PM At 16:25 the ACT was 207 seconds. ner 04:25 PM Time: 16:25 Heparin 1000 units Intravenous Given by Sharmila Siu RN ner 04:26 PM HR=91 bpm, ZVLT=013/97 mmhg, SpO2=98.0 %, Resp=17 B/min, Comment=bbb 04:28 PM wire reinserted catheter removed kkner 04:28 PM 6Fr Rcb Runway guide catheter was used to cannulate the PCI vessel successfully. reused? No kkner 04:30 PM .014 BMW Kenly 180cm guide wire across target lesion- successful. reused? No kkner 04:31 PM HR=93 bpm, AAWK=672/102 mmhg, SpO2=98.0 %, Resp=18 B/min, Comment=bbb 04:[address] hernandez notified of contrast amount given kkallner 04:36 PM HR=92 bpm, JYWG=400/100 mmhg, SpO2=99.0 %, Resp=16 B/min, EtCO2=35 mmHg, Comment=bbb 04:37 PM wire reinserted catheter removed kkallner 04:38 PM 6Fr HS SH Runway guide catheter was used to cannulate the PCI vessel successfully. reused? No kkallner 04:38 PM .014 Project Planner 50 cm guide wire across target lesion- successful. reused? No kkallner 04:41 PM HR=93 bpm, TIWV=013/106 mmhg, SpO2=99.0 %, Resp=18 B/min, Comment=bbb 04:44 PM Guide wire removed intact. kkallner 04:45 PM Recorded Pressure: Ao, HR=94, Condition=Condition 1 (Aorta) Ao 122/93/106 04:46 PM HR=93 bpm, GZDX=909/100 mmhg, SpO2=98.0 %, Resp=16 B/min, Comment=bbb 04:48 PM bmw reinserted kkallner 04:49 PM .014 Whisper 190cm guide wire across target lesion- successful. reused? No kkallner 04:50 PM Recorded Pressure: Ao, HR=94, Condition=Condition 1 (Aorta) Ao 109/68/88 04:51 PM HR=91 bpm, BDLQ=470/99 mmhg, SpO2=97.0 %, Resp=16 B/min, Comment=bbb 04:54 PM whisper removed for reshaping kkallner 04:54 PM whisper reinserted kkallner 04:56 PM HR=94 bpm, PBXK=908/106 mmhg, SpO2=96.0 %, Resp=17 B/min, Comment=bbb 05:01 PM HR=93 bpm, ZKUW=876/106 mmhg, SpO2=96.0 %, Resp=18 B/min, Comment=bbb 05:03 PM super cross mirco catheter inserted kkner 05:05 PM Time: 17:05 Heparin 1000 units Intravenous Given by Sharmila Siu RN kkallner 05:06 PM HR=94 bpm, VABU=471/101 mmhg, SpO2=96.0 %, Resp=19 B/min, Comment=bbb 05:11 PM whisper wire removed kkallner 05:11 PM HR=92 bpm, QILG=593/105 mmhg, SpO2=95.0 %, Resp=18 B/min, Comment=bbb 05:11 PM reshaping wire kkallner 05:13 PM Guide wire removed intact. (whisper) kkallner 05:14 PM .014 BMW Kenly 300cm guide wire across target lesion- successful. reused? No kkallner 05:15 PM Recorded Pressure: Ao, HR=94, Condition=Condition 1 (Aorta) Ao 115/88/101 05:16 PM HR=94 bpm, YKRK=796/96 mmhg, SpO2=95.0 %, Resp=16 B/min, Comment=bbb 05:21 PM HR=94 bpm, KZTM=779/105 mmhg, SpO2=95.0 %, Resp=19 B/min, Comment=bbb 05:21 PM Guide wire removed intact. kkallner 05:25 PM .014 Choice Floppy 300cm guide wire across target lesion- successful. reused? No kkallner 05:26 PM HR=95 bpm, YJTU=225/111 mmhg, SpO2=95.0 %, Resp=17 B/min, Comment=bbb 05:29 PM 2.0 mm x 12 mm Emerge Monorail balloon across target lesion- successful. reused? No kkallner 05:29 PM Recorded Pressure: Ao, HR=96, Condition=Condition 1 (Aorta) Ao 132/98/113 05:30 PM Time: 17:30 Nipride 50 mcg Intracoronary Given by Yisel Hernandez MD kkallner 05:30 PM Recorded Pressure: Ao, HR=97, Condition=Condition 1 (Aorta) Ao 96/63/77 05:31 PM HR=97 bpm, QHKT=921/99 mmhg, SpO2=94.0 %, Resp=19 B/min, Comment=bbb 05:31 PM Balloon inflated @ 6 shanita for 9 seconds kkallner 05:35 PM Recorded Pressure: Ao, HR=95, Condition=Condition 1 (Aorta) Ao 132/95/111 05:36 PM YN=577 bpm, KYKT=909/96 mmhg, SpO2=95.0 %, Resp=18 B/min, Comment=bbb 05:37 PM Balloon catheter removed intact. [email or web address] 05:37 PM 3.5mm x 20mm Synergy drug-eluting stent across target lesion- successful Lot #[id number] [email or web address] 05:39 PM Stent deployed @ 11 shanita for 7 seconds [email or web address] 05:40 PM Time: 17:39 Nipride 100 mcg Intracoronary Given by Yisel Hernandez MD kkner 05:40 PM Stent balloon reinflated @ 12 shanita for 5 seconds kkallner 05:40 PM Stent balloon reinflated @ 12 shanita for 4 seconds kkallner 05:41 PM Stent delivery system removed intact. kkallner 05:41 PM HR=96 bpm, XDKI=934/88 mmhg, SpO2=94.0 %, Resp=20 B/min, Comment=bbb 05:42 PM Time: 17:41 Nipride 100 mcg Intracoronary Given by Yisel Hernandez MD kkner 05:43 PM Guide wire removed intact. kkallner 05:43 PM Guide catheter removed intact. kkallner 05:46 PM HR=96 bpm, ZTGY=056/95 mmhg, SpO2=90.0 %, Resp=16 B/min, Comment=bbb 05:47 PM Procedure completed at 17:47 09/01/2018 [email or web address] 05:48 PM Time: 17:47 Heparin 2000 units Intravenous Given by Sharmila Siu RN kkallner 05:49 PM Did you address MAEGAN flow and Dominance? Yes [email or web address] 05:50 PM Coronary Dominance: right kkallner 05:51 PM HR=93 bpm, XBOL=218/102 mmhg, SpO2=93.0 %, Resp=20 B/min 05:52 PM Sign out completed: Radiation Dose 4698 mGy, 96925 Gy/cm2 Fluoro Time: 63.9 Isovue 370 - 200ml contrast 343 ml given by Musa Hernandez MD, FACC. Complications: None. 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 Cardiac Rehab Consult needed: YesConfirmed administered medications: Yes Impella traveling representative Trey Flores and deputy felony clerk present throughout the case kkallner 05:53 PM Isovue 370 - 200ml,3 Bottle(s) used. kkallner 05:53 PM Impella Pump turned off. kkallner 05:53 PM Impella sheath covered for icu transport kkallner 05:54 PM NIBP STAT measurement started. 05:55 PM HR=93 bpm, XSZG=150/94 mmhg, SpO2=96.0 %, Resp=21 B/min, Comment=bbb 05:56 PM Time: 14:45LOC: 4 = Oriented but drowsy kkallner 05:56 PM Time: 14:45 Patient comfortable and pain free: Yes kkallner 05:56 PM HR=93 bpm, IKIY=577/82 mmhg, SpO2=96.0 %, Resp=20 B/min 05:57 PM Arterial sheath pulled, Angio-seal closure device used and was Successful [id number] S/N. kkallner 06:01 PM HR=95 bpm, HSHH=816/103 mmhg, SpO2=93.0 %, Comment=bbb 06:03 PM Estimated Blood Loss: less than 50cc kkallner 06:03 PM Post ECG Sr with bbb kkallner 06:03 PM Post Blood Pressure 148/103 kkallner 06:04 PM 18:04 Post Pulses Bilateral DP & PT 1+ kkallner 06:04 PM Information taught Cardiac Cath, PCI, and Angioseal kkallner 06:04 PM Education needs Procedure, Plan of Care, and Responsibilities of Patient in Care kkallner 06:04 PM Learning barriers :None kkallner 06:04 PM Education Methods Verbal kkallner 06:04 PM Education evaluation Able to repeat information kkallner 06:04 PM Site status No bleeding/hematoma - Rt Groin as reported by Nina Maza RT (R) at 18:04 kkallner 06:04 PM Site status No bleeding/hematoma - Lt Groin as reported by Nina Maza RT (R) at 18:04 kkallner 06:05 PM Report given to Miri SIDDIQUI Pt taken to Holding room Room #2. 18:04 kkallner 06:05 PM Plavix, Effient or Brilinta given Yes kkallner 06:05 PM Time: 18:05 Brilinta 180 mg Orally Given by Sharmila Siu RN kkallner 06:06 PM Vitals capture stopped. 06:11 PM Time: 17:56 Patient comfortable and pain free: Yes [email or web address] 06:11 PM Time: 17:56LOC: 4 = Oriented but drowsy kkallner 06:13 PM Report given to Cezar RN Pt taken to ICU Room #6. 18:13 kkallner 06:14 PM Plavix, Effient or Brilinta given Yes kkallner 06:14 PM Delay to floor No kkallner 06:14 PM Patient out of room: 18:14 kkallner 06:14 PM Family placed in consult room. [email or web address] 06:14 PM Complications: None [email or web address] Complications Complication None None Hemodynamics Pressures Site Systolic/A Wave Diastolic/V Wave Mean AO 117 64 83 LV 102 12 17 AO 97 74 85 AO 85 69 77 AO 107 76 91 AO 94 76 86 AO 122 93 106 AO 109 68 88 AO 115 88 101 AO 132 98 113 AO 96 63 77 AO 132 95 111 Post Procedure Information Blood Pressure: 148/103 mmHg Rhythm: Sr with bbb Post procedural instructions were given Closure Device Time Device Success/Fail 09/01/2018 6:00:00 PM Angio-Seal VIP Successful Site Checks Time Location Status Staff Sheath In? Note 06:04 PM Rt Groin No bleeding/hematoma Nina Maza RT (R) 06:04 PM Lt Groin No bleeding/hematoma Nina Maza RT (R) Pulses Time Site Pre-Procedure Post-Procedure Note 09/01/2018 2:40:00 PM Bilateral DP & PT 1+ 09/01/2018 2:40:00 PM Bilateral radial 2+ 6:04:00 PM Bilateral DP & PT 1+ Updated by Kristin Damon, RT (R) on 09/03/2018 8:11:33 AM electronically signed on 09/03/2018 8:13:58 AM with status of Final
[2018-09-03] MEDS: Insulin LISPRO 300 UNITS/3 ML VIAL SQ SCH ×4 (08:23→21:08)
[2018-09-03] MEDS: Insulin DETEMIR 100 UNIT/ML X5UNITS SQ SCH ×2 (08:45→21:06)
--- NOTE | 2018-09-03 11:01 | Nephrology Progress Note ---
Date of Encounter: 09/03/18 Time of Encounter: 10:54 - Assessment and Plan (1) CKD (chronic kidney disease) stage 3, GFR 30-59 ml/min Current Visit: Yes Status: Chronic Patient with mild SINCERE on CKD Stage 3. His renal function seems to be at baseline. 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 Avoid nephrotoxins and renal dose all medications. Ok to discontinue mucomyst. Will sign off. He can follow with [facility] 2-3 months after discharge with renal function panel 1 week prior to visit. Thank you for the consult. Please call if any questions or issues. (2) NSTEMI (non-ST elevated myocardial infarction) Current Visit: Yes Status: Acute Per cardio. s/p ptca with stent placement. (3) CAD (coronary artery disease) Current Visit: Yes Status: Chronic Per primary. Qualifiers: Coronary Disease-Associated Artery/Lesion type: bypass graft [place] vs. transplanted heart: [place] heart Associated angina: without angina Qualified Code(s): I25.810 - Atherosclerosis of coronary artery bypass graft(s) without angina pectoris (4) DM2 (diabetes mellitus, type 2) Current Visit: Yes Status: Chronic Per primary. Qualifiers: Diabetes mellitus complication status: without complication Qualified Code(s): E11.9 - Type 2 diabetes mellitus without complications Subjective Principal diagnosis: chest pain/nstemi Interval history: Mr. Cervantes is a 72 yo man with SINCERE on CKD. He is s/p PTCA with stent placement. He is feeling better. Objective - Vital Signs Vital signs: Vital Signs Temp Pulse Resp BP Pulse Ox 09/03/18 10:00 91 16 115/72 94 09/03/18 09:22 98.3 F 09/03/18 09:00 93 14 109/63 95 09/03/18 08:00 93 14 112/67 96 09/03/18 07:00 93 14 113/67 96 09/03/18 06:00 90 17 124/70 95 09/03/18 05:00 84 17 111/71 99 09/03/18 04:00 98.1 F 92 21 122/81 93 09/03/18 03:30 92 09/03/18 03:00 91 21 122/81 93 09/03/18 02:00 88 16 119/70 91 09/03/18 01:00 89 14 116/71 96 09/03/18 00:02 97.5 F L 09/03/18 00:00 84 20 113/66 92 09/02/18 23:30 90 09/02/18 23:00 81 14 118/77 93 09/02/18 22:00 98 22 124/67 92 09/02/18 21:01 98.0 F 09/02/18 21:00 98 21 122/93 91 09/02/18 20:00 101 18 133/86 93 09/02/18 19:30 89 09/02/18 19:00 89 18 119/85 92 09/02/18 18:00 94 18 127/78 91 09/02/18 17:02 98.9 F 09/02/18 16:00 92 18 137/89 96 09/02/18 15:00 94 18 145/88 93 09/02/18 14:00 99 20 128/91 94 09/02/18 13:00 93 18 125/85 94 09/02/18 12:00 96 14 129/88 94 09/02/18 11:58 98.2 F 09/02/18 11:00 86 20 104/64 91 Intake and Output 09/02/18 09/03/18 09/03/18 23:59 07:59 15:59 Intake Total 2160 / 2160 360 / 360 Output Total 775 / 775 675 / 675 Balance 1385 / 1385 -315 / -315 Intake: IV Fluids 1000 / 1000 0.9 % Sodium Chloride 1,000 ML 1000 / 1000 @ 60 mls/hr IVC [id number] [facility] Rx #:[id number] Oral 1160 / 1160 360 / 360 Output: Urine 775 / 775 675 / 675 Other: Meal Dinner Percent of Meal Consumed 95% Weight 83.7 kg Blood Glucose* 331 178 Patient Weight 09/03/18 23:59 Weight 83.7 kg - General Appearance General appearance: Present: well-developed, well-nourished EENT: Present: ATNC - Lab 09/03/18 04:25 09/03/18 04:25 Most recent lab results Calcium 8.8 mg/dL (8.6-10.3) 09/03/18 04:25 Phosphorus 2.6 mg/dL (2.7-4.5) L 09/03/18 04:25 Magnesium 1.9 mg/dL (1.6-2.6) 09/03/18 04:25 Consult Discharge Plan - Plan Referrals: Bill Penn DO [Primary Care Provider] -
--- NOTE | 2018-09-03 11:30 | Cardiology Progress Note ---
<Rafi Shepard T - Last Filed: 09/03/18 11:32> Date of Encounter: 09/03/18 Time of Encounter: 11:27 Assessment and Plan (1) NSTEMI (non-ST elevated myocardial infarction) Current Visit: Yes Status: Acute Recomend patient go on SIMON-I or ARB once his creatinine stabilizes. Creatinine currently at 1.54 up from 1.3 yesterday, but this is expected response to contrast given during LHC. Continue cardiac diet, cardiac rehab phase 1a, toprolol 100 QD. Reccomend transfer to floor from ICU. Will continue monitoring patient. (2) CKD (chronic kidney disease) stage 3, GFR 30-59 ml/min Current Visit: Yes Status: Chronic Per nephrology's recs. Discussion w patient/family: The assessment and plan as outlined above was discussed with the patient and/or family members who expressed understanding and agreement. All questions were answered. Thank you for involving us in the care of your patient. Please call with any questions. Subjective Principal diagnosis: chest pain/nstemi Interval history: Patient is here for CP s/p day 2 for LHC with impella. Patient reports he is comfortable today. Denies new CP, paliptations, SOB. Has not had new episode of flash pulmonary edema since last episode yesterday AM. Very mild tenderness at site of catheter insertion in left thigh. Objective Vital Signs, Last 4 Hours Temp Pulse Resp BP Pulse Ox 09/03/18 10:00 91 16 115/72 94 09/03/18 09:22 98.3 F 09/03/18 09:00 93 14 109/63 95 09/03/18 08:00 93 14 112/67 96 General: Conversant, No Apparent Distress HEENT: Atraumatic Neck: No JVD Cardiac: Reg Rate and Rhythm, Normal S1 and S2, No Murmur Lungs: Normal Breath Sounds Neuro: Alert and responsive Skin: No rashes noted on visualized skin Musculoskeletal: No Chest Wall Tenderness Extremities: No Cyanosis, No Edema, Normal Pulses Results 09/03/18 04:25 09/03/18 04:25 Lab Results 09/03/18 09/03/18 04:25 04:25 WBC 10.8 Hgb 11.8 L D Hct 36.0 L Plt Count 222 Sodium 132 L Potassium 3.5 Chloride 99 Carbon Dioxide 25 BUN 26 H Creatinine 1.54 H Glucose 149 H Calcium 8.8 Magnesium 1.9 Consult Discharge Plan - Plan Referrals: Bill Penn DO [Primary Care Provider] - <ConnellyMckayladana - Last Filed: 09/03/18 12:11> Date of Encounter: 09/03/18 Assessment and Plan Discussion w patient/family: The assessment and plan as outlined above was discussed with the patient and/or family members who expressed understanding and agreement. All questions were answered. Thank you for involving us in the care of your patient. Please call with any questions. Objective Vital Signs, Last 4 Hours Temp Pulse Resp BP Pulse Ox 09/03/18 11:25 87 09/03/18 11:00 86 18 111/75 94 09/03/18 10:00 91 16 115/72 94 09/03/18 09:22 98.3 F 09/03/18 09:00 93 14 109/63 95 Results 09/03/18 04:25 09/03/18 04:25 Lab Results 09/03/18 09/03/18 04:25 04:25 WBC 10.8 Hgb 11.8 L D Hct 36.0 L Plt Count 222 Sodium 132 L Potassium 3.5 Chloride 99 Carbon Dioxide 25 BUN 26 H Creatinine 1.54 H Glucose 149 H Calcium 8.8 Magnesium 1.9 - Attending Attestation Patient was seen and evaluated independently by me. Findings, assessment and plan were discussed in detail with patient, questions answered. Agree with nurse practitioner's/resident's documentation. Addition as follows, No events, no complaints. No event on Tele. PE unremarkable, B/L groin entry site clean. Cr 1.5 from 1.4 A: NSTEMI, s/p PHUONG- dLM, PHUONG-SVG-RCA HFrEF, EF 45% CKD3, watch ARYAN P: c/w DAPT>1 yr, high intensity statin, toprol will need ACEi/ARB before discharge watch Cr
[2018-09-03] MEDS: Heparin 25,000 UNIT/500 ML D5W 25,000 UNIT/500 ML BAG IVC SCH (11:42)
--- NOTE | 2018-09-03 14:34 | Internal Med Progress Note ---
Hospitalist Progress Note - Encounter Date of Encounter: 09/03/18 Time of Encounter: 14:30 - Subjective Interval History: patient seen and evaluated at bedside. he reports doing well, denies chest pain, nausea, vomiting or shortness of breath. - Exam Vitals: Temp Pulse Resp BP Pulse Ox 97.6 F 72 20 111/59 95 09/03/18 13:56 09/03/18 14:00 09/03/18 14:00 09/03/18 14:00 09/03/18 14:00 Exam: General: Alert, oriented x4. No distress. HENT: Atraumatic, moist mucous membranes and no mucosal ulcerations; Lungs: clear to auscultation b/l with normal respiratory effort and no intercostal retractions, no wheezing, rales or crackles. CV: RRR, normal s1s2, no MRGs. Abdomen: Soft, non-tender, or distended, normo active bowel sounds in all 4 quadrant. Extremities: No peripheral edema. strength is 5/5 in the upper and lower ext. Neuro: CN II-XII intact. Psych: Appropriate affect - Assessment and Plan (1) NSTEMI (non-ST elevated myocardial infarction) Current Visit: Yes Status: Acute Assessment and Plan: s/p LHC with impella decive. Plan as per cardiology recommendation on Brilinta, aspirin and atorvastatin continue with metoprolol 100mg/PO daily. On norco 5/325mg PO for pain control (2) Congestive heart failure (CHF) Current Visit: Yes Status: Chronic Assessment and Plan: Plan Euvolemic, negative total balance of 685ml strict intake and output water restriction to 1.5 litters a day. daily weight 2 gram sodium diet ACEs has been held due to SINCERE Continue beta-shaquille Isosorbide 30mg/PO daily (3) CAD (coronary artery disease) Current Visit: Yes Status: Chronic Assessment and Plan: Patient dual antiplatelet therapy. Aspirin 81mg and Brilinta 90mg/PO BID (4) DM2 (diabetes mellitus, type 2) Current Visit: Yes Status: Chronic Assessment and Plan: Blood sugar well controlled Plan Continue with Levemir 20 units SubQ BID plus Lispro Medium dose sliding scale. (5) CKD (chronic kidney disease) stage 3, GFR 30-59 ml/min Current Visit: Yes Status: Chronic Assessment and Plan: Kidney function back to baseline avoid nephrotoxic medications (6) HTN (hypertension) Current Visit: Yes Status: Chronic Assessment and Plan: BP was running in the low 90s Plan Metoprolol tartrate has been discontinued continue Metoprolol succinate 100mg/PO daily plus amlodipine 2.5mg/PO daily (7) HLD (hyperlipidemia) Current Visit: Yes Status: Chronic Assessment and Plan: On atorvastatin 40mg/PO daily and Fenofibrate 162mg/PO Daily. (8) GERD (gastroesophageal reflux disease) Current Visit: Yes Status: Chronic Assessment and Plan: Omeprazole 20 mg by mouth daily. (9) History of GI bleed Current Visit: Yes Status: Chronic DVT Prophylaxis: On heparin subcutaneous 5000 units twice a day. - Summary of Assessment and Plan Summary of Assessment and Plan: Patient being stepped down of ICU. Need to remain in the hospital for close mon itoring in a telemetry unit. - Time Spent with Patient Total time spent is greater than 50% in coordination of care (as documented) at patient's floor/unit and/or counseling patient: Greater than 35 minutes (38) Plan of Care Discussed with: patient (the family and nurse.) Internal Medicine: Result - Labs CBC & Chem 7: 09/03/18 04:25 09/03/18 04:25 Labs: Short CBC 09/03/18 Range/Units 04:25 WBC 10.8 (4.3-11.1) K/mcL Hgb 11.8 L D (12.9-16.9) g/dL Hct 36.0 L (37.5-50.1) % Plt Count 222 (140-400) K/mcL Neutrophils # 7.7 (1.6-8.9) K/mcL BMP 09/03/18 04:25 Sodium 132 L Potassium 3.5 Chloride 99 Carbon Dioxide 25 BUN 26 H Creatinine 1.54 H Glucose 149 H Calcium 8.8 - ABG Interpretation ABG results: PT/INR, D-dimer PT 11.1 Seconds (9.4-12.1) 08/28/18 10:57 Consult Discharge Plan - Plan Referrals: Bill Penn DO [Primary Care Provider] - (2) Congestive heart failure (CHF) Qualifiers: Heart failure type: systolic Heart failure chronicity: chronic Qualified Code(s): I50.22 - Chronic systolic (congestive) heart failure (3) CAD (coronary artery disease) Qualifiers: Coronary Disease-Associated Artery/Lesion type: bypass graft [place] vs. transplanted heart: [place] heart Associated angina: without angina Qualified Code(s): I25.810 - Atherosclerosis of coronary artery bypass graft(s) without angina pectoris (4) DM2 (diabetes mellitus, type 2) Qualifiers: Diabetes mellitus complication status: without complication Qualified Code(s): E11.9 - Type 2 diabetes mellitus without complications (6) HTN (hypertension) Qualifiers: Hypertension type: essential hypertension Qualified Code(s): I10 - Essential (primary) hypertension (7) HLD (hyperlipidemia) Qualifiers: Hyperlipidemia type: pure hypercholesterolemia Qualified Code(s): E78.00 - Pure hypercholesterolemia, unspecified; E78.0 - Pure hypercholesterolemia (8) GERD (gastroesophageal reflux disease) Qualifiers: Esophagitis presence: esophagitis presence not specified Qualified Code(s): K21.9 - Gastro-esophageal reflux disease without esophagitis
[2018-09-03] MEDS: *HR* Heparin 5,000 UNIT/ML VIAL SQ SCH ×2 (15:06→19:59)
--- NOTE | 2018-09-03 21:25 | Electrocardiograph Report ---
[address] [place], [place] [address] Test Date: 2018-09-01 Pat Name: Jesús Cervantes Department: 112 Room: 06 Gender: M Chairman Ceo: : 1945 Requested By: Musa Chou Order Number: [id number] Reading MD: Cinthia Sawyer Measurements Intervals [place] Rate: 92 P: 53 CO: 167 QRS: 52 QRSD: 164 T: -81 QT: 380 QTc: 429 Interpretive Statements SINUS RHYTHM LEFT BUNDLE BRANCH BLOCK Electronically Signed On 09-03-2018 21:23:32 EDT by Cinthia Sawyer
--- NOTE | 2018-09-03 21:25 | Electrocardiograph Report ---
[address] [place], [place] [address] Test Date: 2018-09-01 Pat Name: Jesús Cervantes Department: 112 Room: 06 Gender: M After School Teacher: : 1945 Requested By: Musa Chou Order Number: [id number] Reading MD: Cinthia Sawyer Measurements Intervals [place] Rate: 94 P: 51 [place]: 175 QRS: 52 QRSD: 162 T: -83 QT: 386 QTc: 438 Interpretive Statements SINUS RHYTHM LEFT BUNDLE BRANCH BLOCK Electronically Signed On 09-03-2018 21:23:24 EDT by Cinthia Sawyer
[2018-09-04 05:23] LABS: Basophils % 0.3 %; Eosinophils # 0.2 K/mcL (0.0-0.6); Eosinophils % 2.5 %; Hematocrit 35.8 % (37.5-50.1); Hemoglobin 11.6 g/dL (12.9-16.9); Immature Granulocytes % 0.7 % (0-4); Lymphocytes # 1.4 K/mcL (0.6-4.6); Lymphocytes % 16.1 %; Mean Corpuscular HGB Conc 32.4 g/dL (31.6-35.5); Mean Corpuscular Hemoglobin 27.3 pg (28.0-33.3); Mean Corpuscular Volume 84.2 fL (83.0-100.0); Monocytes # 0.7 K/mcL (0.0-1.3); Monocytes % 8.1 %; Neutrophils # 6.4 K/mcL (1.6-8.9); Platelet Count 223 K/mcL (140-400); Red Blood Count 4.25 M/mcL (4.19-5.50); Red Cell Distribution Width 14.6 % (11.5-14.5); Segmented Neutrophils % 72.3 %
[2018-09-04] MEDS: *HR* Heparin 5,000 UNIT/ML VIAL SQ SCH (05:26)
[2018-09-04 05:40] LABS: Calcium 8.9 mg/dL (8.6-10.3); Magnesium 1.9 mg/dL (1.6-2.6); Phosphorous 3.2 mg/dL (2.7-4.5)
[2018-09-04 07:56] VITALS: BP 118/71
[2018-09-04] MEDS: *HR* Ticagrelor 90 MG TABLET PO SCH (08:19)
[2018-09-04] MEDS: Metoprolol XL (24 HR) Succ 50 MG TAB.ER.24H PO SCH (08:19)
[2018-09-04] MEDS: Fenofibrate 54 MG TABLET PO SCH (08:19)
[2018-09-04] MEDS: Isosorbide MONOnitrate (24 HR) 30 MG TAB.ER.24H PO SCH (08:19)
[2018-09-04] MEDS: Insulin LISPRO 300 UNITS/3 ML VIAL SQ SCH ×2 (08:20→12:51)
[2018-09-04] MEDS: Aspirin 81 MG TAB.CHEW PO SCH (08:20)
[2018-09-04] MEDS: Insulin DETEMIR 100 UNIT/ML X5UNITS SQ SCH (08:20)
[2018-09-04] MEDS: amLODIPine 5 MG TABLET PO SCH (08:21)
--- NOTE | 2018-09-04 10:03 | Electrocardiograph Report ---
[address] [address] Test Date: 2018-08-29 Pat Name: Jesús Cervantes Department: 111 Room: 2NE20 Gender: M Director Of Financial Planning: RAW : 1945 Requested By: Marina Ruiz Order Number: [id number] Reading MD: Jose Frances Measurements Intervals [place] Rate: 108 P: 61 [place]: 164 QRS: 45 QRSD: 145 T: -82 QT: 351 QTc: 415 Interpretive Statements SINUS TACHYCARDIA POSSIBLE LEFT ATRIAL ENLARGEMENT LEFT BUNDLE BRANCH BLOCK Electronically Signed On 09-04-2018 10:02:00 EDT by Jose Frances
--- NOTE | 2018-09-04 12:10 | Cardiology Progress Note ---
<Rafi Shepard T - Last Filed: 09/04/18 12:07> Date of Encounter: 09/04/18 Time of Encounter: 12:11 Assessment and Plan (1) NSTEMI (non-ST elevated myocardial infarction) Status: Acute Patient reports no new onset CP, palpitations, SOB. Cardiology will sign off on this patient. Recommend he go home on lisinopril 2.5 mg QD and follow up with Dr. Lesley Parada in outpatient clinic. (2) CKD (chronic kidney disease) stage 3, GFR 30-59 ml/min Status: Chronic Per nephrology's recs. Discussion w patient/family: The assessment and plan as outlined above was discussed with the patient and/or family members who expressed understanding and agreement. All questions were answered. Thank you for involving us in the care of your patient. Please call with any questions. Subjective Principal diagnosis: chest pain/nstemi Interval history: Patient is here for CP s/p day 3 for C with impella. Patient reports he is comfortable today. Denies new CP, paliptations, SOB. Very mild tenderness at site of catheter insertion in left thigh. Objective General: Conversant, No Apparent Distress HEENT: Atraumatic, Normocephaly Cardiac: Reg Rate and Rhythm, Normal S1 and S2 Lungs: Normal Breath Sounds, No Wheeze, Rales, Rhonchi Neuro: Alert and responsive Abdomen: Soft Skin: No rashes noted on visualized skin Musculoskeletal: No Chest Wall Tenderness Extremities: No Clubbing, No Cyanosis, No Edema Results 09/04/18 04:09 09/04/18 04:09 Lab Results 09/04/18 09/04/18 04:09 04:09 WBC 8.9 Hgb 11.6 L Hct 35.8 L Plt Count 223 Sodium 134 L Potassium 4.0 Chloride 101 Carbon Dioxide 26 BUN 26 H Creatinine 1.54 H Glucose 320 H Calcium 8.9 Magnesium 1.9 Consult Discharge Plan - Plan Instructions: Lisinopril (By mouth), Ticagrelor (By mouth), Myocardial Infarction (DC), Left Heart Catheterization (DC), Safe Use of Anticoagulants (DC) Referrals: Bill Penn DO [Primary Care Provider] - 09/10/18 1:30 pm Prescriptions: RX: Lisinopril 2.5 mg PO DAILY 30 Days #30 tablet RX: Ticagrelor [Brilinta] 90 mg PO BID 30 Days #60 tablet <Deondre Spaulding A - Last Filed: 09/04/18 16:12> Date of Encounter: 09/04/18 Assessment and Plan Discussion w patient/family: The assessment and plan as outlined above was discussed with the patient and/or family members who expressed understanding and agreement. All questions were answered. Thank you for involving us in the care of your patient. Please call with any questions. Results 09/04/18 04:09 09/04/18 04:09 Lab Results 09/04/18 09/04/18 04:09 04:09 WBC 8.9 Hgb 11.6 L Hct 35.8 L Plt Count 223 Sodium 134 L Potassium 4.0 Chloride 101 Carbon Dioxide 26 BUN 26 H Creatinine 1.54 H Glucose 320 H Calcium 8.9 Magnesium 1.9 - Attending Attestation I have personally performed a face to face evaluation on this patient. I have reviewed and agree with the care plan as documented by the resident. History and Exam by me shows: Patient admitted for an NSTEMI and received PCI to distal RCA 3 days ago. He is doing well. No chest pain shortness of breath or palpitations. He may be discharged home on aspirin 81 mg daily, Brillinta 90 mg twice a day, high intensity statin, Toprol. Ejection fraction 45-50%. Commence lisinopril 2.5 mg daily. Diabetes needs to be better controlled Follow-up with PCP and reservation clerk Thanks, Deondre Spaulding MD
--- NOTE | 2018-09-04 12:31 | Discharge Summary ---
- NOTES TO OUTPATIENT PROVIDER Notes to Outpatient Provider: Follow-up with cardiology within 1-2 weeks of hospital discharge. Date of Encounter: 09/04/18 Time of Encounter: 12:27 - Discharge Diagnosis (1) NSTEMI (non-ST elevated myocardial infarction) Priority: Primary Status: Resolved (2) Congestive heart failure (CHF) Priority: Secondary Status: Chronic Qualifiers: Heart failure type: systolic Heart failure chronicity: chronic Qualified Code(s): I50.22 - Chronic systolic (congestive) heart failure (3) CAD (coronary artery disease) Priority: Secondary Status: Chronic Qualifiers: Coronary Disease-Associated Artery/Lesion type: bypass graft [place] vs. transplanted heart: [place] heart Associated angina: without angina Qualified Code(s): I25.810 - Atherosclerosis of coronary artery bypass graft(s) without angina pectoris (4) DM2 (diabetes mellitus, type 2) Priority: Secondary Status: Chronic Qualifiers: Diabetes mellitus complication status: without complication Qualified Code(s): E11.9 - Type 2 diabetes mellitus without complications (5) CKD (chronic kidney disease) stage 3, GFR 30-59 ml/min Priority: Secondary Status: Chronic (6) HTN (hypertension) Priority: Secondary Status: Chronic Qualifiers: Hypertension type: essential hypertension Qualified Code(s): I10 - Essential (primary) hypertension (7) HLD (hyperlipidemia) Priority: Secondary Status: Chronic Qualifiers: Hyperlipidemia type: pure hypercholesterolemia Qualified Code(s): E78.00 - Pure hypercholesterolemia, unspecified; E78.0 - Pure hypercholesterolemia (8) GERD (gastroesophageal reflux disease) Priority: Secondary Status: Chronic Qualifiers: Esophagitis presence: esophagitis presence not specified Qualified Code(s): K21.9 - Gastro-esophageal reflux disease without esophagitis (9) History of GI bleed Priority: Secondary Status: Chronic Hospital course: Mr. Cervantes is a 72 year old male past medical history of hypertension, coronary artery disease with previous ND in , CABG with double bypass in 1995, CVA, hyperlipidemia, diabetes and GERD. Patient presented to the emergency room complaining of chest pain. Admitted to the hospital due to an NSTEMI. Patient underwent LHC: impression severe three vesel coronary artery disease. Cardiothoracic surgery's was consulted, and after risk stratifying the patient recommended PCI with impella device. Patient underwent LHC with impella on . During this admission there was a slight worsening of the patient kidney function following the first LHC, which resolved with IV hydration. Patient has been hemodynamically stable post procedure. Discussed with cardiology about discharged planning and agreed on discharging patient on a bb, low dose ACEs and brilinta and to follow up with them as outpatient. Patient has been educated about the importance of a better DM control. As per patient's he is not compliant with the diet. - Time Spent with Patient Total time spent providing and/or coordinating discharge services: Greater than 30 minutes (35) - Discharge Medications Prescriptions: Lisinopril 2.5 mg PO DAILY 30 Days #30 tablet Ticagrelor [Brilinta] 90 mg PO BID 30 Days #60 tablet Home Medications: Aspirin [Adult Low Dose Aspirin EC] 81 mg PO DAILY 01/04/16 [History] Metoprolol [Lopressor] 50 mg PO BID 01/04/16 [History] [place]-3/Dha/Epa/Fish Oil [Fish Oil Dr 500 mg Softgel] 1,000 mg PO DAILY 01/04/16 [History] Isosorbide MONOnitrate (24 HR) [Imdur] 30 mg PO DAILY #30 tab.er.24h 01/08/16 [Rx] Atorvastatin [Lipitor] 40 mg PO HS 04/01/16 [History] Gemfibrozil [Lopid] 600 mg PO BIDWM 04/01/16 [History] Metformin HCl [Glucophage] 1,000 mg PO DAILY 04/01/16 [History] Fenofibrate Nanocrystallized [Triglide] 160 mg PO DAILY 08/28/18 [History] Pantoprazole Sodium [Protonix] 40 mg PO DAILY 08/28/18 [History] glipiZIDE [Glipizide] 10 mg PO BID 08/28/18 [History] Lisinopril 2.5 mg PO DAILY 30 Days #30 tablet 09/04/18 [Rx] Ticagrelor [Brilinta] 90 mg PO BID 30 Days #60 tablet 09/04/18 [Rx] Allergies/Adverse Reactions: Allergy/AdvReac Type Severity Reaction Status Date / Time No Known Allergies Allergy Verified 10/20/17 13:30 Date of admission: 08/28/18 13:23 Primary care physician: Bill Penn DO Consults: 08/28/18 09:39 Consult to Cardiology [CONS] Stat Comment: Consulting Provider: Cardiology [place] Reason for Consult: NSTEMI Call Completed: Yes 08/28/18 13:29 Consult to Audio Visual Equipment Rental Clerk [CONS] Routine Reason for SW Consult: Please assess patient for possible home needs for post-discharge planning. 08/28/18 21:19 Consult to Cardiothoracic Surgery [CONS] Routine Consulting Provider: Cardiothoracic Surgery Polly Reason for Consult: open heart Call Completed: Yes 08/31/18 07:36 Consult to Nephrology [CONS] Routine Consulting Provider: Kidney Polly/SANDY/RASTA/MELISSA Reason for Consult: worsening renal failure in setting of cHF post cath, scheduled for PCI Call Completed: No 09/01/18 18:07 Consult to Cardiac Rehabilitation-Phase1 [CONS] Routine Comment: Reason for Consult: AMI Call Completed: Yes Consult to Nurse Navigator [CONS] Routine Comment: - Constitutional Vitals: Temp Pulse Resp BP Pulse Ox 97.9 F 81 17 118/71 96 09/04/18 07:50 09/04/18 07:50 09/04/18 05:16 09/04/18 07:50 09/04/18 07:50 General appearance: Present: cooperative, A&O X 3, pleasant, no acute distress, answers questions appropriately Exam: General: Alert, oriented x4. No distress. HENT: Atraumatic, moist mucous membranes and no mucosal ulcerations; Lungs: clear to auscultation b/l, no wheezing, rales or crackles. CV: RRR, normal s1s2, no MRGs. Abdomen: Soft, non-tender, or distended, normo active bowel sounds in all 4 quadrant. Extremities: No peripheral edema. strength is 5/5 in the upper and lower ext. Neuro: CN II-XII intact. Psych: Appropriate affect - Patient Status Disposition: Home, Self-Care Condition: Good Functional capacity at discharge: independent ambulation Overall status at discharge: patient is back to baseline - Discharge Instructions Follow Up With: Bill Penn DO [Primary Care Provider] - - Diet and Activity Activity: resume usual activities as tolerated Diet: diabetic diet
[2018-09-04] MEDS ORDERED: Insulin DETEMIR 100 UNIT/ML X5UNITS SQ SCH (21:00)
== END 2018-09-04 14:57 | disposition home or self-care (01) | DRG 215 ==
LOC: EMEROOARM 08:10 → 3BNU 08:10 → SUATTDRO 13:23 → 2NENU 08-29 01:29 → ICNU 09-01 15:03 → 2NENU 09-03 22:16
PROVIDERS: ADMIT Internal Medicine Nephrology; ATTEND Internal Medicine

== ENCOUNTER 2021-08-25 10:47 | Observation (INO) ==
[2021-08-25] MEDS ORDERED: Aspirin 81 MG TAB.CHEW PO ONE (10:51)
[2021-08-25 11:14] LABS: Basophils # 0.1 K/mcL (0.0-0.2); Basophils % 0.6 %; Eosinophils # 0.1 K/mcL (0.0-0.6); Eosinophils % 1.4 %; Hematocrit 52.7 % (37.5-50.1); Hemoglobin 17.2 g/dL (12.9-16.9); Immature Granulocytes % 0.4 % (0-4); Lymphocytes # 1.8 K/mcL (0.6-4.6); Lymphocytes % 18.7 %; Mean Corpuscular HGB Conc 32.6 g/dL (31.6-35.5); Mean Corpuscular Hemoglobin 28.4 pg (28.0-33.3); Mean Corpuscular Volume 87.1 fL (83.0-100.0); Mean Platelet Volume 10.1 fL (9.4-12.4); Monocytes # 0.5 K/mcL (0.0-1.3); Monocytes % 4.7 %; Neutrophils # 7.2 K/mcL (1.6-8.9); Platelet Count 213 K/mcL (140-400); Red Blood Count 6.05 M/mcL (4.19-5.50); Segmented Neutrophils % 74.2 %; White Blood Count 9.7 K/mcL (4.3-11.1)
[2021-08-25 11:26] LABS: Prothrombin Time 11.2 Seconds (9.4-12.1)
[2021-08-25 11:34] LABS: BUN/Creatinine Ratio 14 (6-26); Blood Urea Nitrogen 22 mg/dL (8-23); Calcium 10.1 mg/dL (8.6-10.3); Carbon Dioxide 26 mEq/L (23-29); Chloride 99 mEq/L (98-107); Glucose 194 mg/dL (70-105); Osmolality,Calculated 285 (280-300); Sodium 133 mEq/L (136-145); eGFR For African Americans 54 (> 60); eGFR For Non-African Americans 44 (> 60)
[2021-08-25 11:51] LABS: Troponin I < 0.03 ng/mL (< 0.04)
[2021-08-25] MEDS ORDERED: *HR* HYDROcodone/Acet 5/325 mg TABLET PO ONE (12:53)
[2021-08-25] MEDS ORDERED: Ondansetron ODT 4 MG TAB.RAPDIS SL PRN (13:21)
[2021-08-25] MEDS ORDERED: Melatonin 3 MG TABLET PO PRN (13:21)
[2021-08-25] MEDS ORDERED: Nitroglycerin 0.4 MG TAB.SUBL SL PRN (13:21)
[2021-08-25] MEDS ORDERED: Morphine Sulfate 2 MG/ML SYRINGE IVP PRN (13:21)
[2021-08-25] MEDS ORDERED: Naloxone 0.4 MG/ML INJ IVP PRN (13:21)
[2021-08-25] MEDS ORDERED: Mag Hydrox/Al Hydrox/Simeth 30 ML UDC PO PRN (13:21)
[2021-08-26 01:39] LABS: Hematocrit 46.7 % (37.5-50.1); Hemoglobin 15.8 g/dL (12.9-16.9); Mean Corpuscular HGB Conc 33.8 g/dL (31.6-35.5); Mean Corpuscular Hemoglobin 29.4 pg (28.0-33.3); Mean Corpuscular Volume 86.8 fL (83.0-100.0); Mean Platelet Volume 10.2 fL (9.4-12.4); Platelet Count 185 K/mcL (140-400); Red Blood Count 5.38 M/mcL (4.19-5.50); Red Cell Distribution Width 13.2 % (11.5-14.5); White Blood Count 9.2 K/mcL (4.3-11.1)
[2021-08-26 01:46] LABS: INR 1.1; Prothrombin Time 12.3 Seconds (9.4-12.1)
[2021-08-26 01:51] LABS: Calcium 9.4 mg/dL (8.6-10.3); Magnesium 1.7 mg/dL (1.6-2.6); Potassium 4.3 mEq/L (3.5-5.1)
[2021-08-26] MEDS ORDERED: Regadenoson 0.4 MG/5 ML SYRINGE IVP ONE (06:23)
[2021-08-26] MEDS: Isosorbide MONOnitrate (24 HR) 30 MG TAB.ER.24H PO SCH (09:31)
[2021-08-26] MEDS: Aspirin Enteric Coated 81 MG Tablet PO SCH (09:31)
[2021-08-26] MEDS ORDERED: Perflutren Lipid Microsphere 1.3 ML in 0.9 % Sodium Chloride 8.7 ML IVP PRN (10:28)
[2021-08-26] MEDS ORDERED: *HR* Dextrose 50 % in Water (Syg) 50 ML SYRINGE IVP PRN (13:32)
[2021-08-26] MEDS ORDERED: D5% in Water 1,000 ML IVC PRN (13:32)
[2021-08-26] MEDS ORDERED: Dextrose Gel 15 GM/37.5 ML TUBE PO PRN ×2 (13:32)
[2021-08-26] MEDS: *HR* HYDROcodone/Acet 5/325 mg TABLET PO PRN ×2 (14:48→22:13)
[2021-08-26] MEDS: Insulin LISPRO 300 UNITS/3 ML VIAL SUBQ SCH (17:17)
[2021-08-26] MEDS: *HR* Heparin 5,000 UNIT/ML VIAL SQ SCH (17:19)
[2021-08-27 05:50] LABS: Hematocrit 50.3 % (37.5-50.1); Hemoglobin 17.2 g/dL (12.9-16.9); Mean Corpuscular HGB Conc 34.2 g/dL (31.6-35.5); Mean Corpuscular Hemoglobin 29.5 pg (28.0-33.3); Mean Corpuscular Volume 86.1 fL (83.0-100.0); Mean Platelet Volume 9.9 fL (9.4-12.4); Platelet Count 199 K/mcL (140-400); Red Blood Count 5.84 M/mcL (4.19-5.50); Red Cell Distribution Width 13.2 % (11.5-14.5); White Blood Count 10.1 K/mcL (4.3-11.1)
[2021-08-27 06:17] LABS: Calcium 9.7 mg/dL (8.6-10.3); Potassium 4.3 mEq/L (3.5-5.1)
[2021-08-27] MEDS: *HR* Heparin 5,000 UNIT/ML VIAL SQ SCH (06:29)
[2021-08-27] MEDS: Insulin LISPRO 300 UNITS/3 ML VIAL SUBQ SCH ×2 (08:32→12:11)
[2021-08-27] MEDS: Aspirin Enteric Coated 81 MG Tablet PO SCH (08:32)
[2021-08-27] MEDS: Isosorbide MONOnitrate (24 HR) 30 MG TAB.ER.24H PO SCH (08:32)
[2021-08-27 11:12] VITALS: BP 151/86; PULSE 68; TEMP 97.9; O2SAT 93
[2021-08-27] MEDS ORDERED: carvediloL 6.25 MG TABLET PO SCH (17:00)
[2021-08-27] MEDS ORDERED: hydrALAZINE 25 MG TABLET PO SCH (21:00)
== END 2021-08-27 15:11 | disposition home or self-care (01) ==
LOC: EMEROOARM 10:47 → 3BNU 10:47 → SUATTDRO 13:47 → 3BNU 15:04
PROVIDERS: ADMIT Family Medicine; ATTEND Internal Medicine